=== PATIENT | male | born 1960 | race Caucasian/White ===

== ENCOUNTER 2022-01-08 04:11 | Inpatient (IN) | payer BC ==
[2022-01-08] MEDS ORDERED: NALOXONE 0.4 MG/ML 1 ML VIAL IVP STA (04:15)
[2022-01-08] MEDS ORDERED: IPRATROPIUM 0.5 MG/2.5 ML NEBU INHALATION STA (04:15)
[2022-01-08] MEDS ORDERED: ALBUTEROL NEBULIZED 2.5 MG/3 ML INHALATION STA (04:15)
[2022-01-08] MEDS ORDERED: SODIUM CHLORIDE 0.9% 1,000 ML IV STA (04:15)
[2022-01-08] MEDS ORDERED: methylPREDNISolone SOD SUCCI 125 MG/2 ML VIAL IV STA (04:15)
[2022-01-08] MEDS ORDERED: ENALAPRILAT 1.25 MG/ML 1 ML VIAL IVP STA ×2 (04:17→04:30)
--- NOTE | 2022-01-08 04:17 | ED ---
Altered Mental Status HPI - General Stated Complaint: JULIA Time Seen by Provider: 01/08/22 04:15 Source: RN notes reviewed, old records reviewed Limitations: no limitations - History of Present Illness Initial Comments: This is a 61-year-old male DF for evaluation. Patient presents today for evaluation regards to inability to breathe. Patient can provide history. Difficulty breathing MD Complaint: altered mental status -: days(s) Severity: severe Consistency of Symptoms: constant Associated Symptoms: denies other symptoms - Related Data Previous Rx's Medication Instructions Recorded Albuterol Inhaler [Ventolin Hfa 1 puff INHALATION RT-QID 30 Days 01/13/22 Inhaler] #8 gm Aspirin 81 mg PO DAILY #30 tab 01/13/22 Atorvastatin [Lipitor] 40 mg PO DAILY #30 tab 01/13/22 Cephalexin [Keflex] 500 mg PO TID 5 Days #15 cap 01/13/22 Furosemide [Lasix] 40 mg PO DAILY #30 tab 01/13/22 Metoprolol Tartrate [Lopressor] 25 mg PO BID #60 tab 01/13/22 Nitroglycerin Sl Tabs [Nitrostat] 0.4 mg SUBLINGUAL Q5M PRN #30 tab 01/13/22 Prasugrel [Effient] 10 mg PO DAILY 30 Days #30 tab 01/13/22 Spironolactone [Aldactone] 25 mg PO DAILY #30 tab 01/13/22 lisinopriL [Zestril] 5 mg PO BID #60 tab 01/13/22 Allergies Allergy/AdvReac Type Severity Reaction Status Date / Time Penicillins Allergy Anaphylaxis Verified 01/08/22 07:30 Review of Systems ROS Statement: Those systems with pertinent positive or pertinent negative responses have been documented in the HPI. ROS Other: All systems not noted in ROS Statement are negative. General Exam General appearance: alert, in no apparent distress Head exam: Present: atraumatic, normocephalic, normal inspection Eye exam: Present: normal appearance, PERRL, EOMI. Absent: scleral icterus, conjunctival injection, periorbital swelling ENT exam: Present: normal exam, mucous membranes moist Neck exam: Present: normal inspection. Absent: tenderness, meningismus, lymphadenopathy Respiratory exam: Present: normal lung sounds bilaterally. Absent: respiratory distress, wheezes, rales, rhonchi, stridor Cardiovascular Exam: Present: regular rate, normal rhythm, normal heart sounds. Absent: systolic murmur, diastolic murmur, rubs, gallop, clicks GI/Abdominal exam: Present: soft, normal bowel sounds. Absent: distended, tenderness, guarding, rebound, rigid Extremities exam: Present: normal inspection, full ROM, normal capillary refill. Absent: tenderness, pedal edema, joint swelling, calf tenderness Back exam: Present: normal inspection Neurological exam: Present: alert, oriented X3, CN II-XII intact Psychiatric exam: Present: normal affect, normal mood Skin exam: Present: warm, dry, intact, normal color. Absent: rash Course Vital Signs 01/08/22 01/08/22 01/08/22 04:18 04:43 04:47 Temperature Pulse Rate 122 H Pulse Rate [ [employer] ] Respiratory 40 H 20 Rate Blood Pressure Blood Pressure [Left Arm Supine] O2 Sat by Pulse 86 L Oximetry Fraction of 100 Inspired Oxygen (FIO2) 01/08/22 01/08/22 01/08/22 04:48 04:50 04:54 Temperature Pulse Rate 118 H Pulse Rate [ [employer] ] Respiratory 18 Rate Blood Pressure 158/113 165/108 Blood Pressure [Left Arm Supine] O2 Sat by Pulse Oximetry Fraction of 100 Inspired Oxygen (FIO2) 01/08/22 01/08/22 01/08/22 05:00 05:05 05:10 Temperature Pulse Rate Pulse Rate [ 118 H [employer] ] Respiratory 18 Rate Blood Pressure 158/113 158/113 Blood Pressure 116/81 108/81 114/76 [Left Arm Supine] O2 Sat by Pulse Oximetry Fraction of Inspired Oxygen (FIO2) 01/08/22 01/08/22 01/08/22 05:15 05:17 05:20 Temperature Pulse Rate 113 H 112 H Pulse Rate [ 118 H [employer] ] Respiratory 18 20 Rate Blood Pressure 158/113 Blood Pressure 97/66 [Left Arm Supine] O2 Sat by Pulse Oximetry Fraction of Inspired Oxygen (FIO2) 01/08/22 01/08/22 01/08/22 05:24 05:30 05:40 Temperature Pulse Rate 128 H 106 H 105 H Pulse Rate [ [employer] ] Respiratory 40 H 22 22 Rate Blood Pressure 223/184 84/56 80/53 Blood Pressure [Left Arm Supine] O2 Sat by Pulse 80 L 94 L 95 Oximetry Fraction of Inspired Oxygen (FIO2) 01/08/22 01/08/22 01/08/22 05:50 05:55 06:00 Temperature Pulse Rate 104 H 99 108 H Pulse Rate [ [employer] ] Respiratory 19 12 Rate Blood Pressure 84/56 108/82 Blood Pressure [Left Arm Supine] O2 Sat by Pulse 94 L 96 Oximetry Fraction of Inspired Oxygen (FIO2) 01/08/22 01/08/22 01/08/22 06:10 06:20 06:24 Temperature Pulse Rate 99 100 99 Pulse Rate [ [employer] ] Respiratory 23 25 H Rate Blood Pressure 86/59 120/83 Blood Pressure [Left Arm Supine] O2 Sat by Pulse 96 97 Oximetry Fraction of Inspired Oxygen (FIO2) 01/08/22 01/08/22 01/08/22 06:27 06:30 06:40 Temperature Pulse Rate 97 94 Pulse Rate [ [employer] ] Respiratory 24 21 Rate Blood Pressure 74/54 81/53 Blood Pressure [Left Arm Supine] O2 Sat by Pulse 98 99 Oximetry Fraction of 60 Inspired Oxygen (FIO2) 01/08/22 01/08/22 01/08/22 06:50 07:00 07:10 Temperature Pulse Rate 90 91 84 Pulse Rate [ [employer] ] Respiratory 23 22 26 H Rate Blood Pressure 83/57 113/78 82/53 Blood Pressure [Left Arm Supine] O2 Sat by Pulse 99 99 98 Oximetry Fraction of Inspired Oxygen (FIO2) 01/08/22 01/08/22 01/08/22 07:30 07:52 07:59 Temperature Pulse Rate 88 74 Pulse Rate [ [employer] ] Respiratory Rate Blood Pressure 75/50 Blood Pressure [Left Arm Supine] O2 Sat by Pulse Oximetry Fraction of 60 Inspired Oxygen (FIO2) 01/08/22 01/08/22 01/08/22 08:18 08:21 08:42 Temperature 98.5 F Pulse Rate 73 73 76 Pulse Rate [ [employer] ] Respiratory 18 18 Rate Blood Pressure 95/66 100/75 Blood Pressure [Left Arm Supine] O2 Sat by Pulse 97 99 Oximetry Fraction of Inspired Oxygen (FIO2) 01/08/22 01/08/22 01/08/22 10:55 11:33 11:38 Temperature Pulse Rate 69 67 Pulse Rate [ [employer] ] Respiratory 18 Rate Blood Pressure 93/62 Blood Pressure [Left Arm Supine] O2 Sat by Pulse 98 Oximetry Fraction of 60 Inspired Oxygen (FIO2) 01/08/22 01/08/22 12:31 13:28 Temperature Pulse Rate 78 86 Pulse Rate [ [employer] ] Respiratory 22 18 Rate Blood Pressure 103/76 121/83 Blood Pressure [Left Arm Supine] O2 Sat by Pulse 96 96 Oximetry Fraction of Inspired Oxygen (FIO2) - Reevaluation(s) Reevaluation #1: Medical record is reviewed Patient feels not improved here in the emergency department Medical Decision Making - Medical Decision Making 61 male with multifactorial respiratory failure and hypoxia in nature. Patient will be admitted to the ICU - Lab Data Result diagrams: 01/13/22 06:11 01/13/22 06:11 Lab Results 01/08/22 01/08/22 01/08/22 Range/Units 04:15 04:15 04:15 WBC 10.9 H (3.8-10.6) k/uL RBC 5.47 (4.30-5.90) m/uL Hgb 16.6 (13.0-17.5) gm/dL Hct 53.7 H (39.0-53.0) % MCV 98.2 (80.0-100.0) fL MCH 30.4 (25.0-35.0) pg MCHC 31.0 (31.0-37.0) g/dL RDW 13.6 (11.5-15.5) % Plt Count 267 (150-450) k/uL MPV 8.9 Neutrophils % 62 % Lymphocytes % 28 % Monocytes % 4 % Eosinophils % 2 % Basophils % 2 % Neutrophils # 6.7 (1.3-7.7) k/uL Lymphocytes # 3.0 (1.0-4.8) k/uL Monocytes # 0.5 (0-1.0) k/uL Eosinophils # 0.2 (0-0.7) k/uL Basophils # 0.2 (0-0.2) k/uL Hypochromasia Slight PT 12.3 H (9.0-12.0) sec INR 1.2 H (<1.2) APTT 24.0 (22.0-30.0) sec Sample Site ABG pH (7.35-7.45) ABG pCO2 (35-45) mmHg ABG pO2 (83-108) mmHg ABG HCO3 (21-25) mmol/L ABG Total CO2 (19-24) mmol/L ABG O2 Saturation (94-97) % ABG Base Excess mmol/L Irvin Test FiO2 % Sodium 140 (137-145) mmol/L Potassium 4.6 (3.5-5.1) mmol/L Chloride 103 (98-107) mmol/L Carbon Dioxide 20 L (22-30) mmol/L Anion Gap 17 mmol/L BUN 18 (9-20) mg/dL Creatinine 1.23 (0.66-1.25) mg/dL Est GFR (CKD-EPI)AfAm 74 (>60 ml/min/1.73 sqM) Est GFR (CKD-EPI)NonAf 64 (>60 ml/min/1.73 sqM) Glucose 325 H (74-99) mg/dL Lactic Ac Sepsis Rflx Plasma Lactic Acid Junaid (0.7-2.0) mmol/L Calcium 9.5 (8.4-10.2) mg/dL Magnesium 2.5 H (1.6-2.3) mg/dL Total Bilirubin 0.7 (0.2-1.3) mg/dL AST 41 (17-59) U/L ALT 26 (4-49) U/L Alkaline Phosphatase 84 (38-126) U/L Troponin I (0.000-0.034) ng/mL NT-Pro-B Natriuret Pep pg/mL Total Protein 7.6 (6.3-8.2) g/dL Albumin 4.5 (3.5-5.0) g/dL 01/08/22 01/08/22 01/08/22 Range/Units 04:15 04:15 04:15 WBC (3.8-10.6) k/uL RBC (4.30-5.90) m/uL Hgb (13.0-17.5) gm/dL Hct (39.0-53.0) % MCV (80.0-100.0) fL MCH (25.0-35.0) pg MCHC (31.0-37.0) g/dL RDW (11.5-15.5) % Plt Count (150-450) k/uL MPV Neutrophils % % Lymphocytes % % Monocytes % % Eosinophils % % Basophils % % Neutrophils # (1.3-7.7) k/uL Lymphocytes # (1.0-4.8) k/uL Monocytes # (0-1.0) k/uL Eosinophils # (0-0.7) k/uL Basophils # (0-0.2) k/uL Hypochromasia PT (9.0-12.0) sec INR (<1.2) APTT (22.0-30.0) sec Sample Site ABG pH (7.35-7.45) ABG pCO2 (35-45) mmHg ABG pO2 (83-108) mmHg ABG HCO3 (21-25) mmol/L ABG Total CO2 (19-24) mmol/L ABG O2 Saturation (94-97) % ABG Base Excess mmol/L Irvin Test FiO2 % Sodium (137-145) mmol/L Potassium (3.5-5.1) mmol/L Chloride (98-107) mmol/L Carbon Dioxide (22-30) mmol/L Anion Gap mmol/L BUN (9-20) mg/dL Creatinine (0.66-1.25) mg/dL Est GFR (CKD-EPI)AfAm (>60 ml/min/1.73 sqM) Est GFR (CKD-EPI)NonAf (>60 ml/min/1.73 sqM) Glucose (74-99) mg/dL Lactic Ac Sepsis Rflx Plasma Lactic Acid Junaid 5.4 H* (0.7-2.0) mmol/L Calcium (8.4-10.2) mg/dL Magnesium (1.6-2.3) mg/dL Total Bilirubin (0.2-1.3) mg/dL AST (17-59) U/L ALT (4-49) U/L Alkaline Phosphatase (38-126) U/L Troponin I 0.096 H* (0.000-0.034) ng/mL NT-Pro-B Natriuret Pep 4070 pg/mL Total Protein (6.3-8.2) g/dL Albumin (3.5-5.0) g/dL 01/08/22 01/08/22 Range/Units 05:38 05:54 WBC (3.8-10.6) k/uL RBC (4.30-5.90) m/uL Hgb (13.0-17.5) gm/dL Hct (39.0-53.0) % MCV (80.0-100.0) fL MCH (25.0-35.0) pg MCHC (31.0-37.0) g/dL RDW (11.5-15.5) % Plt Count (150-450) k/uL MPV Neutrophils % % Lymphocytes % % Monocytes % % Eosinophils % % Basophils % % Neutrophils # (1.3-7.7) k/uL Lymphocytes # (1.0-4.8) k/uL Monocytes # (0-1.0) k/uL Eosinophils # (0-0.7) k/uL Basophils # (0-0.2) k/uL Hypochromasia PT (9.0-12.0) sec INR (<1.2) APTT (22.0-30.0) sec Sample Site lbrach ABG pH 7.21 L (7.35-7.45) ABG pCO2 67 H (35-45) mmHg ABG pO2 363 H (83-108) mmHg ABG HCO3 27 H (21-25) mmol/L ABG Total CO2 29 H (19-24) mmol/L ABG O2 Saturation 100.0 H (94-97) % ABG Base Excess -1.3 mmol/L Irvin Test Yes FiO2 100 % Sodium (137-145) mmol/L Potassium (3.5-5.1) mmol/L Chloride (98-107) mmol/L Carbon Dioxide (22-30) mmol/L Anion Gap mmol/L BUN (9-20) mg/dL Creatinine (0.66-1.25) mg/dL Est GFR (CKD-EPI)AfAm (>60 ml/min/1.73 sqM) Est GFR (CKD-EPI)NonAf (>60 ml/min/1.73 sqM) Glucose (74-99) mg/dL Lactic Ac Sepsis Rflx Y Plasma Lactic Acid Junaid (0.7-2.0) mmol/L Calcium (8.4-10.2) mg/dL Magnesium (1.6-2.3) mg/dL Total Bilirubin (0.2-1.3) mg/dL AST (17-59) U/L ALT (4-49) U/L Alkaline Phosphatase (38-126) U/L Troponin I (0.000-0.034) ng/mL NT-Pro-B Natriuret Pep pg/mL Total Protein (6.3-8.2) g/dL Albumin (3.5-5.0) g/dL - Radiology Data Radiology results: report reviewed (Chest x-ray does show interstitial edema), image reviewed Disposition Clinical Impression: Acute exacerbation of chronic obstructive pulmonary disease, Acute pulmonary edema, Congestive heart failure, Hypoxia Disposition: ADMITTED IP TO THIS [facility] Condition: Stable Is patient prescribed a controlled substance at d/c from ED?: No
[2022-01-08] MEDS ORDERED: PROPOFOL 10 MG/ML 20 ML VIAL IV ONE (04:30)
--- NOTE | 2022-01-08 04:41 | XR ---
EXAMINATION TYPE: XR chest 1V portable DATE OF EXAM: 01/08/2022 COMPARISON: NONE HISTORY: Short of breath TECHNIQUE: Single view FINDINGS: There is coarsening of the interstitial markings. Heart is top normal in size. There are no hilar masses. Mediastinum is normal. Bony thorax is intact. IMPRESSION: There is pulmonary interstitial edema which could be acute pneumonia or acute heart failu re.
[2022-01-08] MEDS ORDERED: NITROGLYCERIN-D5W PMX 50 MG in DEXTROSE/WATER 1 250ML.BAG IV ONE (04:42)
[2022-01-08 04:54] LABS: Basophils # (A) 0.2 k/uL (0-0.2); Basophils % (A) 2 %; Eosinophils # (A) 0.2 k/uL (0-0.7); Eosinophils % (A) 2 %; HCT 53.7 % (39.0-53.0); HGB 16.6 gm/dL (13.0-17.5); Hypochromasia Slight; Lymphocytes % (A) 28 %; MCH 30.4 pg (25.0-35.0); MCV 98.2 fL (80.0-100.0); Mean Platelet Volume 8.9; Monocytes # (A) 0.5 k/uL (0-1.0); Monocytes % (A) 4 %; Neutrophils # (A) 6.7 k/uL (1.3-7.7); Neutrophils % (A) 62 %; Platelet Count 267 k/uL (150-450); RBC 5.47 m/uL (4.30-5.90); RDW 13.6 % (11.5-15.5); WBC 10.9 k/uL (3.8-10.6)
[2022-01-08 05:02] LABS: INR 1.2 (<1.2); Prothrombin Time 12.3 sec (9.0-12.0)
--- NOTE | 2022-01-08 05:12 | XR ---
EXAMINATION TYPE: XR chest 1V portable DATE OF EXAM: 01/08/2022 COMPARISON: 01/08/2022 HISTORY: Respiratory failure TECHNIQUE: Single view FINDINGS: The endotracheal tube is 3.8 cm from the arsenio. There is some pulmonary interstitial edema . Heart appears slightly enlarged. There is nasogastric tube in the stomach. No pleural effusion. IMPRESSION: Tubing in good position. Pulmonary edema which is the same or slightly worse than exam on e hour ago.
[2022-01-08 05:19] LABS: Albumin 4.5 g/dL (3.5-5.0); Calcium 9.5 mg/dL (8.4-10.2); Magnesium 2.5 mg/dL (1.6-2.3); Total Bilirubin 0.7 mg/dL (0.2-1.3); Total Protein 7.6 g/dL (6.3-8.2)
[2022-01-08 05:25] LABS: Potassium 4.6 mmol/L (3.5-5.1)
[2022-01-08] MEDS ORDERED: MIDAZOLAM 1 MG/ML 5 ML VIAL IV STA ×4 (05:26→08:00)
--- NOTE | 2022-01-08 05:28 | CT ---
EXAMINATION TYPE: CT brain sabineine wo con DATE OF EXAM: 01/08/2022 COMPARISON: None HISTORY: AMS CT DLP: 1784 mGycm Automated exposure control for dose reduction was used. Ventricles have normal size. There is no mass effect or midline shift. No sign of intracranial hemorr manny. The calvarium is intact. There is normal aeration of the mastoid sinuses. There is orogastric t ube and endotracheal tube. The cervical vertebra have normal alignment. There is mild disc space narrowing in the mid and lower cervical spine with spurring of the endplates. No compression fracture. There is mild hypertrophic ce rvical facet arthropathy. IMPRESSION: Spondylotic changes in the mid and lower cervical spine. No fracture. Negative CT scan of the brain. Ethmoid sinusitis.
[2022-01-08 05:40] LABS: ABG Base Excess -1.3 mmol/L; ABG HCO3 27 mmol/L (21-25); ABG PCO2 67 mmHg (35-45); ABG PH 7.21 (7.35-7.45); ABG PO2 363 mmHg (83-108); ABG TCO2 29 mmol/L (19-24); Allen Test Performed? Yes
[2022-01-08] MEDS ORDERED: IPRATROPIUM-ALBUTEROL 3 ML NEB INHALATION STA (05:43)
--- NOTE | 2022-01-08 05:45 | CT ---
EXAMINATION TYPE: CT angio thor/abd pel aorta DATE OF EXAM: 01/08/2022 COMPARISON: None HISTORY: SOB CT DLP: 1996.4 mGycm Automated exposure control for dose reduction was used. CONTRAST: Performed with IV Contrast, patient injected with 100 mL of Isovue 370. Images obtained from the thoracic inlet through the floor the pelvis with IV contrast. There are Thre e-D postprocessed images. There is bilateral lower lobe pulmonary airspace and interstitial infiltrates. There is small pleural effusions. Heart is top normal in size. No pericardial effusion. There are no hilar masses. No mediastinal adenopathy. There is some diffuse pulmonary interstitial ed cheli. Liver spleen and stomach pancreas gallbladder appear intact. The bile ducts are not dilated. There is no adrenal mass. Kidneys show satisfactory contrast opacification. There is no hydronephrosis. Urete rs are not dilated. No retroperitoneal adenopathy. Bladder distends smoothly. No inguinal hernia. No free fluid in the pelvis. No pelvic mass. There are a few sigmoid diverticula. No diverticulitis. No mesenteric edema. No ascites or free air. No sign of a bowel obstruction. The thoracic aorta is intact. No aneurysm or dissection. There is no evidence of filling defect in th e pulmonary arteries. There is arterial flow in the abdominal aorta and the celiac artery and superior mesenteric artery. T here is arterial flow in both renal arteries and the iliac and femoral arteries. No evidence of arter ial aneurysm or dissection. No evidence of hemodynamic stenosis. No mass effect. IMPRESSION: Negative CT angiogram of the chest abdomen pelvis. No evidence of pulmonary embolism. No evidence of arterial aneurysm or dissection. There is pulmonary edema with small pleural effusions and basilar pu lmonary infiltrates and atelectasis. This could be congestive heart failure.
[2022-01-08] MEDS ORDERED: MORPHINE SULFATE 4 MG/ML SYRINGE IV PRN (05:56)
[2022-01-08] MEDS ORDERED: NALOXONE 0.4 MG/ML 1 ML VIAL IV PRN (05:56)
[2022-01-08] MEDS ORDERED: SUCCINYLCHOLINE CHLORIDE 200 MG/10 ML VIAL IV STA (06:28)
[2022-01-08] MEDS ORDERED: ETOMIDATE 2 MG/ML 10 ML VIAL IVP STA (06:28)
[2022-01-08] MEDS ORDERED: SODIUM CHLORIDE 0.9% 500 ML 500 ML IV STA (06:47)
[2022-01-08] MEDS: IPRATROPIUM-ALBUTEROL 3 ML NEB INHALATION SCH ×4 (07:52→20:59)
[2022-01-08] MEDS ORDERED: ALBUTEROL NEBULIZED 2.5 MG/3 ML INHALATION SCH (08:00)
[2022-01-08] MEDS: methylPREDNISolone SOD SUCCI 125 MG/2 ML VIAL IV SCH ×3 (08:23→18:30)
[2022-01-08] MEDS: PANTOPRAZOLE 40 MG/10 ML VIAL IV SCH (08:25)
--- NOTE | 2022-01-08 08:53 | P.CRDCN ---
History of Present Illness Consult date: 01/08/22 History of present illness: History of Present Illness: The patient is a 61-year-old male who presented to the emergency room was progressive dyspnea, respiratory distress requiring mechanical ventilation. The history is obtained from his family. The patient has a known history of tobacco use. He has been followed in the past by Dr. Whatley, has no prior history of CHF but apparently has been complaining of progressive dyspnea over the last week or so much worse yesterday. He had no chest discomfort, no dizziness or palpitations or syncope according to the . He had no peripheral edema. There is no documented history of PND or orthopnea. He had an echocardiogram in January 2021 that showed an ejection fraction of 40-45% and had an MPI that showed anteroseptal ischemia with ejection fraction 34%. At that time recommendations were made regarding cardiac catheterization but the patient elected to continue medical therapy. He has a known history of hypertension and a history of smoking. He is nondiabetic. He is intubated and sedated in the emergency room during examination. Medications: When he was seen by Dr. Whatley he was on lisinopril hydroch lorothiazide 2012-/2 mg daily in addition to aspirin once a day Review of Systems: Obtained from the family Respiratory: He has a history of progressive dyspnea but no fever or wheezing GI: No nausea or vomiting . No history of peptic ulcer disease. No recent GI bleed. : No hematuria or dysuria. Nervous System: No stroke or seizure. Physical Examination: 7-year-old male, intubated and sedated ,Blood pressure 100/70, Heart rate 70 Head: Normocephalic. Eyes: Sclerae nonicteric. Neck: Good carotid upstroke, no bruit, no jugular venous distention. Lungs: Clear to auscultation. Heart: Regular rate and rhythm, S1-S2, no S3, no rub. Systolic ejection murmur. Abdomen: Soft , positive bowel sounds no organomegaly. Extremities: No edema, intact distal pulses. Labs: Blood cell 10.9, hemoglobin 16.6, pH 7.2, pCO2 67, pO2 363. Potassium 4.6, BUN 18, creatinine 1.23, glucose 325, troponin 0.096, NT proBNP 4070, chest x-ray consistent with pulmonary edema. CT angiogram showed no evidence of pulmonary embolism. Head CT showed no evidence of acute bleed EKG: EKG shows sinus mechanism with LVH and nonspecific ST-T wave changes Impression: 1. Acute respiratory failure with pulmonary edema, etiology unclear 2. Prior history of cardiomyopathy and abnormal MPI in January 2021 3. Chronic tobacco use 4. History of hypertension Plan: 1. IV diuresis 2. Obtain an echocardiogram with Doppler 3. Follow cardiac enzymes, the elevation appears to be related to the congestive heart failure, no clear evidence of acute ischemic event by EKG 4. Follow blood pressure and adjust treatment 5. Pulmonary consultation 6. Depending on his progress he may require coronary angiography depending on the testing 7. I discussed the findings with the family. Thank you for this consult we keturah l follow with you. Past Medical History Past Medical History: No Reported History Past Surgical History: No Surgical Hx Reported Past Psychological History: No Psychological Hx Reported Smoking Status: Current every day smoker Past Alcohol Use History: None Reported Past Drug Use History: None Reported Medications and Allergies Home Medications Medication Instructions Recorded Confirmed Type No Known Home Medications 01/08/22 01/08/22 History Allergies Allergy/AdvReac Type Severity Reaction Status Date / Time Penicillins Allergy Anaphylaxis Verified 01/08/22 07:30 Physical Exam Vitals: Vital Signs Temp Pulse Pulse Resp BP BP Pulse Ox 01/08/22 08:42 76 18 100/75 99 01/08/22 08:21 98.5 F 73 18 95/66 97 01/08/22 08:18 73 01/08/22 07:59 74 01/08/22 07:52 01/08/22 07:30 88 75/50 01/08/22 07:10 84 26 H 82/53 98 01/08/22 07:00 91 22 113/78 99 01/08/22 06:50 90 23 83/57 99 01/08/22 06:40 94 21 81/53 99 01/08/22 06:30 97 24 74/54 98 01/08/22 06:27 01/08/22 06:24 99 01/08/22 06:20 100 25 H 120/83 97 01/08/22 06:10 99 23 86/59 96 01/08/22 06:00 108 H 12 108/82 96 01/08/22 05:55 99 01/08/22 05:50 104 H 19 84/56 94 L 01/08/22 05:40 105 H 22 80/53 95 01/08/22 05:30 106 H 22 84/56 94 L 01/08/22 05:24 128 H 40 H 223/184 80 L 01/08/22 05:20 112 H 20 158/113 01/08/22 05:17 113 H 01/08/22 05:15 118 H 18 97/66 01/08/22 05:10 158/113 114/76 01/08/22 05:05 108/81 01/08/22 05:00 118 H 18 158/113 116/81 01/08/22 04:54 118 H 18 165/108 01/08/22 04:50 158/113 01/08/22 04:48 01/08/22 04:47 01/08/22 04:43 122 H 20 86 L 01/08/22 04:18 40 H FiO2 01/08/22 08:42 01/08/22 08:21 01/08/22 08:18 01/08/22 07:59 01/08/22 07:52 60 01/08/22 07:30 01/08/22 07:10 01/08/22 07:00 01/08/22 06:50 01/08/22 06:40 01/08/22 06:30 01/08/22 06:27 60 01/08/22 06:24 01/08/22 06:20 01/08/22 06:10 01/08/22 06:00 01/08/22 05:55 01/08/22 05:50 01/08/22 05:40 01/08/22 05:30 01/08/22 05:24 01/08/22 05:20 01/08/22 05:17 01/08/22 05:15 01/08/22 05:10 01/08/22 05:05 01/08/22 05:00 01/08/22 04:54 01/08/22 04:50 01/08/22 04:48 100 01/08/22 04:47 100 01/08/22 04:43 01/08/22 04:18 Intake and Output 01/07/22 01/08/22 01/08/22 22:59 06:59 14:59 Intake Total 13.483 3.891 Balance 13.483 3.891 Intake: Intake, IV Titration 13.483 3.891 Amount Nitroglycerin-D5w Pmx 50 1.05 mg In Dextrose/Water 1 250ml.bag @ 10 MCG/MIN 3 mls/hr IV .Q24H ONE Rx#: [id number] propofoL 1,000 mg In 12.433 3.891 Empty Bag 1 bag @ 5 MCG/ KG/MIN 2.847 mls/hr IV . Q24H [facility] Rx#:[id number] Other: Weight 94.9 kg Results 01/08/22 04:15 01/08/22 04:15 Cardiac Enzymes 01/08/22 01/08/22 Range/Units 04:15 04:15 AST 41 (17-59) U/L Troponin I 0.096 H* (0.000-0.034) ng/mL Coagulation 01/08/22 Range/Units 04:15 PT 12.3 H (9.0-12.0) sec APTT 24.0 (22.0-30.0) sec CBC 01/08/22 Range/Units 04:15 WBC 10.9 H (3.8-10.6) k/uL RBC 5.47 (4.30-5.90) m/uL Hgb 16.6 (13.0-17.5) gm/dL Hct 53.7 H (39.0-53.0) % Plt Count 267 (150-450) k/uL Comprehensive Metabolic Panel 01/08/22 Range/Units 04:15 Sodium 140 (137-145) mmol/L Potassium 4.6 (3.5-5.1) mmol/L Chloride 103 (98-107) mmol/L Carbon Dioxide 20 L (22-30) mmol/L BUN 18 (9-20) mg/dL Creatinine 1.23 (0.66-1.25) mg/dL Glucose 325 H (74-99) mg/dL Calcium 9.5 (8.4-10.2) mg/dL AST 41 (17-59) U/L ALT 26 (4-49) U/L Alkaline Phosphatase 84 (38-126) U/L Total Protein 7.6 (6.3-8.2) g/dL Albumin 4.5 (3.5-5.0) g/dL Current Medications Generic Name Dose Route Start Last Admin Trade Name Freq PRN Reason Stop Dose Admin Albuterol/Ipratropium 3 ml 01/08/22 08:00 01/08/22 07:52 Ipratropium-Albuterol 3 Ml Neb INHALATION 3 ml RT-QID TERE Administration Sodium Chloride 1,000 mls @ 130 mls/hr 01/08/22 04:15 01/08/22 08:43 Saline 0.9% IV 01/08/22 11:56 130 mls/hr .Q7H42M STA Administration Propofol 1,000 mg/ IV Solution 100 mls @ 2.847 mls/hr 01/08/22 04:30 01/08/22 08:42 IV 25 mcg/kg/min .Q24H TERE 14.235 mls/hr Titration Protocol 5 MCG/KG/MIN Nitroglycerin/Dextrose 50 mg/ 250 mls @ 3 mls/hr 01/08/22 04:42 01/08/22 05:05 IV Solution IV 01/09/22 04:41 0 mcg/min .Q24H ONE 0 mls/hr Titration Protocol 10 MCG/MIN Methylprednisolone Sodium Succinate 60 mg 01/08/22 06:00 01/08/22 08:23 Methylprednisolone Sod Succi 125 Mg/2 Ml Vial IV Not Given Q6HR TERE Morphine Sulfate 4 mg 01/08/22 05:56 Morphine Sulfate 4 Mg/Ml Syringe IV Q4HR PRN Pain Scale 8 to 10 Naloxone HCl 0.2 mg 01/08/22 05:56 Naloxone 0.4 Mg/Ml 1 Ml Vial IV Q2M PRN Opioid Reversal Pantoprazole Sodium 40 mg 01/08/22 09:00 01/08/22 08:25 Pantoprazole 40 Mg/10 Ml Vial IV Not Given DAILY TERE Intake and Output 01/07/22 01/08/22 01/08/22 22:59 06:59 14:59 Intake Total 13.483 3.891 Balance 13.483 3.891 Intake: Intake, IV Titration 13.483 3.891 Amount Nitroglycerin-D5w Pmx 50 1.05 mg In Dextrose/Water 1 250ml.bag @ 10 MCG/MIN 3 mls/hr IV .Q24H [facility] Rx#: [id number] propofoL 1,000 mg In 12.433 3.891 Empty Bag 1 bag @ 5 MCG/ KG/MIN 2.847 mls/hr IV . Q24H [facility] Rx#:[id number] Other: Weight 94.9 kg 01/08/22 04:15 01/08/22 04:15
[2022-01-08] MEDS ORDERED: HEPARIN SODIUM 1,000 UN/ML (10ML VL) IV ONE (08:54)
[2022-01-08] MEDS ORDERED: HEPARIN SODIUM 1,000 UN/ML (10ML VL) IV PRN (08:54)
[2022-01-08] MEDS: ATORVASTATIN 40 MG TAB PO SCH (10:17)
[2022-01-08] MEDS: ASPIRIN 81 MG PO SCH (10:17)
[2022-01-08] MEDS: FUROSEMIDE 10 MG/ML 4 ML VIAL IV SCH ×2 (10:25→16:17)
[2022-01-08] MEDS: HEPARIN SOD,PORK IN 0.45% NACL 25,000 UNIT in 0.45% NACL 1 250ML.BAG IV SCH (10:29)
--- NOTE | 2022-01-08 12:00 | CA ---
Transthoracic Echo Report Name: Manas Parikh Age: 61 Gender: M : 1960 Exam Date: 01/08/2022 10:15 Exam Location: [facility] Ht (in): 65 Wt (lb): 209 Ordering Physician: Dong Cortez MD ([id number]) Attending/Referring Phys: [employer] Graciela Roberts RDCS Procedure CPT: Indications: chf Cardiac Hx: Technical Quality: Technically difficult study Contrast 1: Lumason Total Dose (mL): 1 Contrast 2: Agitated Saline Total Dose (mL): 1 MEASUREMENTS (Male / Female) Normal Values 2D ECHO LV Diastolic Diameter PLAX 5.3 cm 4.2 - 5.9 / 3.9 - 5.3 cm LV Systolic Diameter PLAX 3.9 cm IVS Diastolic Thickness 1.3 cm 0.6 - 1.0 / 0.6 - 0.9 cm LVPW Diastolic Thickness 1.2 cm 0.6 - 1.0 / 0.6 - 0.9 cm LV Relative Wall Thickness 0.5 LVOT Diameter 1.7 cm M-MODE Aortic Root Diameter MM 3.8 cm LA Systolic Diameter MM 3.4 cm LA Ao Ratio MM 0.9 MV E Point Septal Separation 3.6 cm AV Cusp Separation MM 1.1 cm DOPPLER AV Peak Velocity 142.7 cm/s AV Peak Gradient 8.1 mmHg AV Mean Velocity 115.6 cm/s AV Mean Gradient 6.3 mmHg AV Velocity Time Integral 28.8 cm AI Peak Velocity 107.1 cm/s AI Peak Gradient 4.6 mmHg AI Pressure Half Time 613.5 ms LVOT Peak Velocity 57.8 cm/s LVOT Peak Gradient 1.3 mmHg AV Area Cont Eq pk 0.9 cm??? MV Area PHT 3.1 cm??? MR Peak Velocity 163.8 cm/s MR Peak Gradient 10.7 mmHg Mitral E Point Velocity 62.9 cm/s Mitral A Point Velocity 93.5 cm/s Mitral E to A Ratio 0.7 MV Deceleration Time 243.4 ms TR Peak Velocity 82.4 cm/s TR Peak Gradient 2.7 mmHg Right Ventricular Systolic Press 7.6 mmHg FINDINGS Left Ventricle Mildly increased septal wall thickness. Left ventricular ejection fraction is estimated at 30-35 %. Left ventricular cavity size normal. Right Ventricle The right ventricle is normal in size and function. Right Atrium The right atrium is normal in size. Left Atrium The left atrium is normal in size. Mitral Valve Structurally normal mitral valve without significant stenosis or prolapse. There is trace mitral regurgitation. Aortic Valve Cannot exclude possible Aortic stenosis, valve appears calcified with reduced opening but due to low EF gradient is not accurate.Trace aortic regurgitation. Tricuspid Valve Structurally normal tricuspid valve without significant stenosis. Pulmonary artery systolic pressure is normal. Trace tricuspid regurgitation. Pulmonic Valve Pulmonic valve not well visualized. Pericardium No pericardial effusion. Aorta Aorta is at the upper limits of normal measuring 3.8cm. CONCLUSIONS Technically suboptimal study secondary to poor echo windows. Contrast agent was used to enhance endocardial visualization. Moderate to severe LV systolic dysfunction with an ejection fraction of 35% aortic sclerosis with diminished valvular opening without significant gradients across the valve Previewed by: Dr. Clay Jeronimo MD (Electronically Signed) Final Date: 08 January 2022 11:59
--- NOTE | 2022-01-08 13:41 | P.CNPUL ---
History of Present Illness Consult date: 01/08/22 Reason for consult: dyspnea History of present illness: This is a 61-year-old male patient, known history of CHF with a previous LV ejection fraction being in the order of 40% on echocardiogram that was done in January 2021. The patient also had a cardiac stress test revealing anteroseptal ischemia with an ejection fraction of 34%. Nevertheless, back then, he did not want to do any further treatment. He did not pursue any treatment. It is not pursue a cardiac catheterization. Over the past 1 week, the patient has been having worsening shortness of breath. This has been noted by the family. No chest pain. No angina. No palpitations. No sweating. No arm or neck pain. Early this morning, the patient became very short of breath and he arrived to the emergency department in significant respiratory distress. The patient was unresponsive at time of arrival. He was immediately intubated and placed on mechanical ventilator. His chest x-ray was consistent with pulmonary edema. The initial chest x-ray was consistent with pulmonary edema. EKG showed atrial flutter with rapid ventricular response and the patient had voltage criteria of LVH. . The proBNP level was 4017. Troponin initially was at 0.09 and subsequently came back at 1.5. The His systolic blood pressure was as high as 150-113 and later on it was also noted to be at 223/184. The patient was immediately intubated and placed on a mechanical ventilator and the patient was also started on diuretics. Post intubation blood gases showed a patient of 7.21 with a pCO2 of 67 pO2 of 63 and this was identified to percent and currently the patient is an assist-control mode at the rate of 16 with tidal volume of 500 and FiO2 of 60% with a PEEP of 5. At this point in time, the patient is sedated with propofol which is currently running at 25 mcg/kg per [facility]. Cardiac rhythm is sinus. The patient was started on Lasix 40 mg IV every 8 hours and the patient is producing excellent urine output. The patient is also on IV heparin. Cardiology is on the case. Echocardiogram is in progress. Patient was also started on Estrace 1 mg by mouth daily and statins in the form of Lipitor 40 mg by mouth daily. He is a chronic smoker. Review of Systems ROS unobtainable: due to endotracheal tube, due to mental status Past Medical History Past Medical History: No Reported History, Coronary Artery Disease (CAD), Heart Failure Past Surgical History: No Surgical Hx Reported Past Psychological History: No Psychological Hx Reported Smoking Status: Current every day smoker Past Alcohol Use History: None Reported Past Drug Use History: None Reported Medications and Allergies Home Medications Medication Instructions Recorded Confirmed Type No Known Home Medications 01/08/22 01/08/22 History Allergies Allergy/AdvReac Type Severity Reaction Status Date / Time Penicillins Allergy Anaphylaxis Verified 01/08/22 07:30 Physical Exam Vitals: Vital Signs Temp Pulse Pulse Resp BP BP Pulse Ox 01/08/22 08:42 76 18 100/75 99 01/08/22 08:21 98.5 F 73 18 95/66 97 01/08/22 08:18 73 01/08/22 07:59 74 01/08/22 07:52 01/08/22 07:30 88 75/50 01/08/22 07:10 84 26 H 82/53 98 01/08/22 07:00 91 22 113/78 99 01/08/22 06:50 90 23 83/57 99 01/08/22 06:40 94 21 81/53 99 01/08/22 06:30 97 24 74/54 98 01/08/22 06:27 01/08/22 06:24 99 01/08/22 06:20 100 25 H 120/83 97 01/08/22 06:10 99 23 86/59 96 01/08/22 06:00 108 H 12 108/82 96 01/08/22 05:55 99 01/08/22 05:50 104 H 19 84/56 94 L 01/08/22 05:40 105 H 22 80/53 95 01/08/22 05:30 106 H 22 84/56 94 L 01/08/22 05:24 128 H 40 H 223/184 80 L 01/08/22 05:20 112 H 20 158/113 01/08/22 05:17 113 H 01/08/22 05:15 118 H 18 97/66 01/08/22 05:10 158/113 114/76 01/08/22 05:05 108/81 01/08/22 05:00 118 H 18 158/113 116/81 01/08/22 04:54 118 H 18 165/108 01/08/22 04:50 158/113 01/08/22 04:48 08/10/22 04:47 01/08/22 04:43 122 H 20 86 L 01/08/22 04:18 40 H FiO2 01/08/22 08:42 01/08/22 08:21 01/08/22 08:18 01/08/22 07:59 01/08/22 07:52 60 01/08/22 07:30 01/08/22 07:10 01/08/22 07:00 01/08/22 06:50 01/08/22 06:40 01/08/22 06:30 01/08/22 06:27 60 01/08/22 06:24 01/08/22 06:20 01/08/22 06:10 01/08/22 06:00 01/08/22 05:55 01/08/22 05:50 01/08/22 05:40 01/08/22 05:30 01/08/22 05:24 01/08/22 05:20 01/08/22 05:17 01/08/22 05:15 01/08/22 05:10 01/08/22 05:05 01/08/22 05:00 01/08/22 04:54 01/08/22 04:50 01/08/22 04:48 100 01/08/22 04:47 100 01/08/22 04:43 01/08/22 04:18 Intake and Output 01/07/22 01/08/22 01/08/22 22:59 06:59 14:59 Intake Total 13.483 3.891 Balance 13.483 3.891 Intake: Intake, IV Titration 13.483 3.891 Amount Nitroglycerin-D5w Pmx 50 1.05 mg In Dextrose/Water 1 250ml.bag @ 10 MCG/MIN 3 mls/hr IV .Q24H [facility] Rx#: [id number] propofoL 1,000 mg In 12.433 3.891 Empty Bag 1 bag @ 5 MCG/ KG/MIN 2.847 mls/hr IV . Q24H [facility] Rx#:[id number] Other: Weight 94.9 kg Intubated on mechanical ventilator, sedated, comfortable Head exam was generally normal. There was no scleral icterus or corneal arcus. Mucous membranes were moist. Neck was supple and without jugular venous distension, thyromegaly, or carotid bruits. Carotids were easily palpable bilaterally. There was no adenopathy. Positive JVDs are noted and the patient has a orogastric and orotracheal tube are both being in good location. Lungs sounds are clear admission lung bases along with some crackles in lung b ases bilaterally. Cardiac exam revealed the PMI to be normally situated and sized. The rhythm was regular and no extrasystoles were noted during several minutes of auscultation. The first and second heart sounds were normal and physiologic splitting of the second heart sound was noted. There were no murmurs, rubs, clicks, or gallops. Abdominal exam revealed normal bowel sounds. The abdomen was soft, non-tender, and without masses, organomegaly, or appreciable enlargement of the abdominal aorta. Examination of the extremities revealed easily palpable radial, femoral and pedal pulses. There was no cyanosis, clubbing or edema. Examination of the skin revealed no evidence of significant rashes, suspicious appearing nevi or other concerning lesions. Neurologically, the patient is awake and alert and the patient does not have any focal neurological deficit. Cranial nerves are essentially intact. Results - Laboratory Findings CBC and BMP: 01/08/22 04:15 01/08/22 04:15 ABG ABG pH 7.21 (7.35-7.45) L 01/08/22 05:38 ABG pCO2 67 mmHg (35-45) H 01/08/22 05:38 ABG pO2 363 mmHg (83-108) H 01/08/22 05:38 ABG O2 Saturation 100.0 % (94-97) H 01/08/22 05:38 PT/INR, D-dimer PT 12.3 sec (9.0-12.0) H 01/08/22 04:15 INR 1.2 (<1.2) H 01/08/22 04:15 Abnormal lab findings: Abnormal Labs 01/08/22 01/08/22 01/08/22 04:15 04:15 04:15 WBC 10.9 H Hct 53.7 H PT 12.3 H INR 1.2 H ABG pH ABG pCO2 ABG pO2 ABG HCO3 ABG Total CO2 ABG O2 Saturation Carbon Dioxide 20 L Glucose 325 H Plasma Lactic Acid Junaid Magnesium 2.5 H Troponin I 01/08/22 01/08/2201/08/22 04:15 04:15 05:38 WBC Hct PT INR ABG pH 7.21 L ABG pCO2 67 H ABG pO2 363 H ABG HCO3 27 H ABG Total CO2 29 H ABG O2 Saturation 100.0 H Carbon Dioxide Glucose Plasma Lactic Acid Junaid 5.4 H* Magnesium Troponin I 0.096 H* - Diagnostic Findings Chest x-ray: image reviewed Assessment and Plan Plan: Acute hypoxic respiratory failure secondary to pulmonary edema, currently intubated on mechanical ventilator Acute decompensated CHF, consistent with systolic heart failure as the patient is known to have some mild impairment of the LV function with an ejection fraction of 40-45% based on her present cardiac up from January 2021 Acute non-ST segment elevation myocardial infarction Acute atrial flutter with RVR, improved and the patient's cardiac rhythm is sinus Hypertension with elevated blood pressure, improved Chronic smoker Plan Transfer this patient to the intensive care unit Keep the patient sedated with propofol Review the blood gases in the intensive care unit Continue Lasix 40 mg every 8 hours Monitor troponins and continue the patient IV heparin Echocardiogram has been ordered Agree on aspirin Agree on metoprolol 25 mg twice a day Agree on Lipitor 40 mg by mouth daily Continue bronchodilators Continue steroids We will consult cardiology We'll continue to follow make further adjustments based on patient's clinical response. May need ultimately a cardiac catheterization. Condition is critical at this point in time. Family has been updated.
[2022-01-08 14:00] LABS: Glucose,Whole Blood 145 mg/dL (70-110)
[2022-01-08] MEDS ORDERED: ONDANSETRON 4 MG/2 ML VIAL IVP PRN (20:55)
[2022-01-08] MEDS: METOPROLOL TARTRATE 25 MG TAB PO SCH (21:01)
[2022-01-08] MEDS: CHLORHEXIDINE GLUCONATE 15 ML CUP MUCOUS MEM SCH (21:01)
[2022-01-08] MEDS ORDERED: DEXTROSE 50% SYRINGE 50 ML IVP PRN ×2 (23:10)
[2022-01-08] MEDS ORDERED: INSULIN ASPART (NovoLOG) 100 UNIT/ML VIAL SQ SCH (23:15)
[2022-01-08 23:22] LABS: Basophils % (A) 0 %; Eosinophils % (A) 0 %; HCT 47.4 % (39.0-53.0); HGB 15.1 gm/dL (13.0-17.5); Lymphocytes # (A) 0.7 k/uL (1.0-4.8); Lymphocytes % (A) 5 %; MCH 30.6 pg (25.0-35.0); MCHC 31.9 g/dL (31.0-37.0); MCV 95.9 fL (80.0-100.0); Mean Platelet Volume 8.6; Monocytes # (A) 0.3 k/uL (0-1.0); Monocytes % (A) 2 %; Neutrophils # (A) 11.2 k/uL (1.3-7.7); Neutrophils % (A) 92 %; Platelet Count 198 k/uL (150-450); RBC 4.94 m/uL (4.30-5.90); RDW 13.7 % (11.5-15.5); WBC 12.2 k/uL (3.8-10.6)
--- NOTE | 2022-01-08 23:31 | P.HPIM ---
History of Present Illness H&P Date: 01/08/22 Chief Complaint: Difficulty in breathing Patient is a 61-year-old male with a known history of coronary artery disease and abdominal myocardial perfusion imaging in January 2021, patient opted for medical management and echocardiogram showed ejection fraction 40% presents to ER with complaints of sudden onset of severe shortness of breath last night. Patient has been having worsening breathing status for the past 1 week. Patient was unresponsive at the time of arrival. He was immediately intubated and placed on mechanical ventilator. Chest x-ray showed diffuse pulmonary interstitial edema which could be acute pneumonia or acute heart failure. CT head and cervical spine showed spondylitic changes in the mid and lower cervical spine. No fracture. Negative CT scan of the brain. Ethmoid sinusitis. CT of the thoracic aorta is negative. There is pulmonary edema with small pleural effusions and bilateral pulmonary infiltrates and atelectasis. This could be congestive heart failure. EKG showed atrial flutter/tachycardia with rapid ventricle response. On admission patient was tachycardic. Blood pressure was 158/113 mmHg Laboratory test showed WBC 10.9 hemoglobin level of 16.6 platelets 267 INR 1.2 ABG showed pH 7.21 PCO2 67 PO2 363 Sodium 140 potassium 4.6 chloride 103 bicarb is 20 BUN 18 and creatinine 1.23 and blood sugar is 325 Lactic acid 5.4 magnesium 2.5, [place] 4070 Troponin 0.096, 01.560, 4.82 Review of Systems Complete review of systems could not be obtained from the patient. Past Medical History Past Medical History: No Reported History, Coronary Artery Disease (CAD), Heart Failure Past Surgical History: No Surgical Hx Reported Past Psychological History: No Psychological Hx Reported Smoking Status: Current every day smoker Past Alcohol Use History: None Reported Past Drug Use History: None Reported Medications and Allergies Home Medications Medication Instructions Recorded Confirmed Type No Known Home Medications 01/08/22 01/08/22 History Allergies Allergy/AdvReac Type Severity Reaction Status Date / Time Penicillins Allergy Anaphylaxis Verified 01/08/22 07:30 Physical Exam Vitals: Vital Signs Temp Pulse Pulse Resp BP BP Pulse Ox 01/08/22 08:42 76 18 100/75 99 01/08/22 08:21 98.5 F 73 18 95/66 97 01/08/22 08:18 73 01/08/22 07:59 74 01/08/22 07:52 01/08/22 07:30 88 75/50 01/08/22 07:10 84 26 H 82/53 98 01/08/22 07:00 91 22 113/78 99 01/08/22 06:50 90 23 83/57 99 01/08/22 06:40 94 21 81/53 99 01/08/22 06:30 97 24 74/54 98 01/08/22 06:27 01/08/22 06:24 99 01/08/22 06:20 100 25 H 120/83 97 01/08/22 06:10 99 23 86/59 96 01/08/22 06:00 108 H 12 108/82 96 01/08/22 05:55 99 01/08/22 05:50 104 H 19 84/56 94 L 01/08/22 05:40 105 H 22 80/53 95 01/08/22 05:30 106 H 22 84/56 94 L 01/08/22 05:24 128 H 40 H 223/184 80 L 01/08/22 05:20 112 H 20 158/113 01/08/22 05:17 113 H 01/08/22 05:15 118 H 18 97/66 01/08/22 05:10 158/113 114/76 01/08/22 05:05 108/81 01/08/22 05:00 118 H 18 158/113 116/81 01/08/22 04:54 118 H 18 165/108 01/08/22 04:50 158/113 01/08/22 04:48 01/08/22 04:47 01/08/22 04:43 122 H 20 86 L 01/08/22 04:18 40 H FiO2 01/08/22 08:42 01/08/22 08:21 01/08/22 08:18 01/08/22 07:59 01/08/22 07:52 60 01/08/22 07:30 01/08/22 07:10 01/08/22 07:00 01/08/22 06:50 01/08/22 06:40 01/08/22 06:30 01/08/22 06:27 60 01/08/22 06:24 01/08/22 06:20 01/08/22 06:10 01/08/22 06:00 01/08/22 05:55 01/08/22 05:50 01/08/22 05:40 01/08/22 05:30 01/08/22 05:24 01/08/22 05:20 01/08/22 05:17 01/08/22 05:15 01/08/22 05:10 01/08/22 05:05 01/08/22 05:00 01/08/22 04:54 01/08/22 04:50 01/08/22 04:48 100 01/08/22 04:47 100 01/08/22 04:43 01/08/22 04:18 Intake and Output 01/07/22 01/08/22 01/08/22 22:59 06:59 14:59 Intake Total 13.483 3.891 Balance 13.483 3.891 Intake: Intake, IV Titration 13.483 3.891 Amount Nitroglycerin-D5w Pmx 50 1.05 mg In Dextrose/Water 1 250ml.bag @ 10 MCG/MIN 3 mls/hr IV .Q24H [facility] Rx#: [id number] propofoL 1,000 mg In 12.433 3.891 Empty Bag 1 bag @ 5 MCG/ KG/MIN 2.847 mls/hr IV . Q24H [facility] Rx#:[id number] Other: Weight 94.9 kg PHYSICAL EXAMINATION: Patient is on mechanical ventilator.. Sedated. HEENT: Normocephalic. Neck is supple. Pupils reactive. Nostrils clear. Oral cavity is moist. Neck reveals no JVD, carotid bruits, or thyromegaly. CHEST EXAMINATION: Trachea is central. Symmetrical expansion. Lung burden clear to auscultation and percussion. Bibasilar diminished sounds. No wheezing. CARDIAC: Normal S1, S2 with no gallops. No murmurs ABDOMEN: Soft. Bowel sounds present. Nontender. No organomegaly. No abdominal bruits. Extremities: reveal trace pedal edema. No clubbing or cyanosis Neurologically patient is sedated and on the current ventilator. No gross focal deficits noted Skin: No rash or skin lesions. Psychiatric: Could not be assessed at this time.. Musculoskeletal: No joint swelling or deformity. Results CBC & Chem 7: 01/08/22 22:55 01/08/22 04:15 Labs: Abnormal Lab Results - Last 24 Hours (Table) 01/08/22 01/08/22 01/08/22 Range/Units 04:15 04:15 04:15 WBC 10.9 H (3.8-10.6) k/uL Hct 53.7 H (39.0-53.0) % PT 12.3 H (9.0-12.0) sec INR 1.2 H (<1.2) ABG pH (7.35-7.45) ABG pCO2 (35-45) mmHg ABG pO2 (83-108) mmHg ABG HCO3 (21-25) mmol/L ABG Total CO2 (19-24) mmol/L ABG O2 Saturation (94-97) % Carbon Dioxide 20 L (22-30) mmol/L Glucose 325 H (74-99) mg/dL Plasma Lactic Acid Junaid (0.7-2.0) mmol/L Magnesium 2.5 H (1.6-2.3) mg/dL Troponin I (0.000-0.034) ng/mL 01/08/22 01/08/22 01/08/22 Range/Units 04:15 04:15 05:38 WBC (3.8-10.6) k/uL Hct (39.0-53.0) % PT (9.0-12.0) sec INR (<1.2) ABG pH 7.21 L (7.35-7.45) ABG pCO2 67 H (35-45) mmHg ABG pO2 363 H (83-108) mmHg ABG HCO3 27 H (21-25) mmol/L ABG Total CO2 29 H (19-24) mmol/L ABG O2 Saturation 100.0 H (94-97) % Carbon Dioxide (22-30) mmol/L Glucose (74-99) mg/dL Plasma Lactic Acid Junaid 5.4 H* (0.7-2.0) mmol/L Magnesium (1.6-2.3) mg/dL Troponin I 0.096 H* (0.000-0.034) ng/mL 01/08/22 Range/Units 08:05 WBC (3.8-10.6) k/uL Hct (39.0-53.0) % PT (9.0-12.0) sec INR (<1.2) ABG pH (7.35-7.45) ABG pCO2 (35-45) mmHg ABG pO2 (83-108) mmHg ABG HCO3 (21-25) mmol/L ABG Total CO2 (19-24) mmol/L ABG O2 Saturation (94-97) % Carbon Dioxide (22-30) mmol/L Glucose (74-99) mg/dL Plasma Lactic Acid Junaid (0.7-2.0) mmol/L Magnesium (1.6-2.3) mg/dL Troponin I 1.560 H* (0.000-0.034) ng/mL Thrombosis Risk Factor Assmnt - DVT/VTE Prophylaxis DVT/VTE Prophylaxis: Pharmacologic Prophylaxis ordered Assessment and Plan Assessment: Acute hypoxic respiratory failure secondary to CHF exacerbation. Currently on mechanical ventilator. Acute on chronic CHF with systolic dysfunction ejection fraction 40% Acute non-ST elevated NM History of abnormal MPI in January 2021. Patient opted for medical management at that time. New onset atrial flutter with rapid ventricular rate. Correlate for sinus node. Hyperglycemia. Possible new onset diabetes. Follow-up A1c level Uncontrolled hypertension History of smoking Medication noncompliance GI and DVT prophylaxis. Plan: Patient is sedated and on mechanical ventilator. Patient will be continued on telemetry monitoring. Continue with Lasix 40 mg every 8 hourly. Patient is also on heparin drip. Continue with aspirin, statins and metoprolol. Continue with duo nebs and follow-up closely. Pulmonary and cardiology is on board. Patient is being transferred to MICU. Time with Patient: Greater than 30
[2022-01-09 00:02] LABS: Glucose,Whole Blood 160 mg/dL (70-110)
[2022-01-09] MEDS: FUROSEMIDE 10 MG/ML 4 ML VIAL IV SCH ×3 (00:11→16:48)
[2022-01-09] MEDS: INSULIN ASPART (NovoLOG) 100 UNIT/ML VIAL SQ SCH ×5 (00:12→20:27)
[2022-01-09] MEDS: methylPREDNISolone SOD SUCCI 125 MG/2 ML VIAL IV SCH ×4 (00:13→18:10)
[2022-01-09 05:52] LABS: ABG Base Excess 8.1 mmol/L; ABG HCO3 33 mmol/L (21-25); ABG PCO2 51 mmHg (35-45); ABG PH 7.42 (7.35-7.45); ABG PO2 80 mmHg (83-108); ABG TCO2 34 mmol/L (19-24); Allen Test Performed? Yes
[2022-01-09 06:14] LABS: Glucose,Whole Blood 143 mg/dL (70-110)
[2022-01-09 07:12] LABS: Basophils % (A) 0 %; Eosinophils % (A) 0 %; HCT 45.1 % (39.0-53.0); HGB 14.8 gm/dL (13.0-17.5); Lymphocytes # (A) 0.7 k/uL (1.0-4.8); Lymphocytes % (A) 6 %; MCH 31.2 pg (25.0-35.0); MCHC 32.8 g/dL (31.0-37.0); MCV 95.3 fL (80.0-100.0); Mean Platelet Volume 8.4; Monocytes # (A) 0.4 k/uL (0-1.0); Monocytes % (A) 3 %; Neutrophils # (A) 10.5 k/uL (1.3-7.7); Neutrophils % (A) 90 %; Platelet Count 213 k/uL (150-450); RBC 4.74 m/uL (4.30-5.90); RDW 13.8 % (11.5-15.5); WBC 11.7 k/uL (3.8-10.6)
[2022-01-09] MEDS: HEPARIN SOD,PORK IN 0.45% NACL 25,000 UNIT in 0.45% NACL 1 250ML.BAG IV SCH (07:14)
[2022-01-09 07:25] LABS: INR 1.1 (<1.2); Partial Thromboplastin Time 49.9 sec (22.0-30.0); Prothrombin Time 12.2 sec (9.0-12.0)
--- NOTE | 2022-01-09 07:29 | XR ---
EXAMINATION TYPE: XR chest 1V portable DATE OF EXAM: 01/09/2022 Comparison: 01/08/2022 Clinical History: 61-year-old male CHF Findings: ET tube tip slightly pulled back now at the level of the medial clavicular heads. NG tube courses bel ow the diaphragm. Heart mildly enlarged. Interstitial changes show slight improvement from prior. No consolidation or pleural effusion. Impression: Mild cardiomegaly and improving interstitial pulmonary edema. Mild pulmonary vascular congestion ar ins.
[2022-01-09 07:40] LABS: Albumin 3.4 g/dL (3.5-5.0); Calcium 8.6 mg/dL (8.4-10.2); Magnesium 2.1 mg/dL (1.6-2.3); Phosphorus 3.6 mg/dL (2.5-4.5); Potassium 3.7 mmol/L (3.5-5.1); Total Bilirubin 0.3 mg/dL (0.2-1.3)
--- NOTE | 2022-01-09 08:01 | P.PN ---
Subjective Progress Note Date: 01/09/22 PROGRESS NOTE The patient is a 61-year-old male who presented with acute respiratory distress, requiring mechanical ventilation. He remains intubated but following commands. He is in sinus mechanism. He is on the low dose of norepinephrine. His urine output is good. He has no evidence of malignant arrhythmia. His echocardiogram showed an ejection fraction of 30-35% with no mention of segmental wall motion. No significant valvular disease was noted. He has a prior history of cardiomyopathy with abnormal stress test a year ago. He has been seen by Dr. Whatley in the past and cardiac catheterization was recommended. His troponin peak was 4.8 Medications: Aspirin once a day, Lipitor 40 mg daily, IV heparin, metoprolol tartrate 25 mg twice a day, Lasix 40 mg IV every 8 hours PHYSICAL EXAMINATION: Blood pressure 111/70 heart rate 90, intubated but following commands . LUNGS: Clear to auscultation HEART: Regular rate and rhythm, S1, S2. No S3. systolic systolic ejection murmur ABDOMEN: Soft, nontender, no organomegaly EXTREMETIES: 1+ edema LAB: Troponin 4.8 IMPRESSION: 1. Respiratory failure with pulmonary edema 2. Non-STEMI 3. Severe cardiomyopathy, unclear etiology 4. History of chronic tobacco use 5. History of hypertension PLAN: 1. Continue present therapy 2. And ventilator management per pulmonary 3. The patient would require cardiac catheterization once stabilized to evaluate the etiology of his cardiomyopathy 4. Follow her renal functions 5. Follow blood pressure and adjust regimen to add DANICA inhibitor 6. I discussed the findings with the family Objective - Vital Signs Vital signs: Vital Signs Temp 99.0 F 01/09/22 04:00 Pulse 92 01/09/22 07:00 Resp 19 01/09/22 07:00 BP 111/75 01/09/22 07:00 Pulse Ox 95 01/09/22 07:00 FiO2 40 01/09/22 07:24 Intake & Output 01/08/22 01/09/22 01/09/22 18:59 06:59 18:59 Intake Total 396.067 657.794 207.28 Output Total 670 1360 120 Balance -273.933 -702.206 87.28 Weight 93.8 kg Intake: IV 120 360 30 NS 120 360 30 Intake, IV Titration 276.067 297.794 177.28 Amount Heparin Sod,Pork in 0.45% 58.5 177.28 NaCl 25,000 unit In 0.45 % NaCl 1 250ml.bag @ 10. 537 UNITS/KG/HR 10 mls/hr IV .[facility] Rx#: [id number] Sodium Chloride 0.9% 1, 130 000 ml @ 130 mls/hr IV . Q7H42M [facility] Rx#:[id number] propofoL 1,000 mg In 87.567 297.794 Empty Bag 1 bag @ 5 MCG/ KG/MIN 2.847 mls/hr IV . [facility] Rx#:[id number] Output: Gastric Drainage 300 20 Urine 670 1060 100 Other: Voiding Method Indwelling Catheter Indwelling Catheter - Labs CBC & Chem 7: 01/09/22 06:32 01/09/22 06:32 Labs: Abnormal Lab Results - Last 24 Hours (Table) 01/08/22 01/08/22 01/08/22 Range/Units 08:05 11:32 13:59 WBC (3.8-10.6) k/uL Neutrophils # (1.3-7.7) k/uL Lymphocytes # (1.0-4.8) k/uL PT (9.0-12.0) sec APTT (22.0-30.0) sec ABG pCO2 (35-45) mmHg ABG pO2 (83-108) mmHg ABG HCO3 (21-25) mmol/L ABG Total CO2 (19-24) mmol/L Carbon Dioxide (22-30) mmol/L BUN (9-20) mg/dL Creatinine (0.66-1.25) mg/dL Glucose (74-99) mg/dL POC Glucose (mg/dL) 145 H (70-110) mg/dL AST (17-59) U/L Troponin I 1.560 H* 4.820 H* (0.000-0.034) ng/mL Total Protein (6.3-8.2) g/dL Albumin (3.5-5.0) g/dL 01/08/22 01/08/22 01/08/22 Range/Units 14:41 22:55 22:55 WBC 12.2 H (3.8-10.6) k/uL Neutrophils # 11.2 H (1.3-7.7) k/uL Lymphocytes # 0.7 L (1.0-4.8) k/uL PT (9.0-12.0) sec APTT 42.7 H 48.0 H (22.0-30.0) sec ABG pCO2 (35-45) mmHg ABG pO2 (83-108) mmHg ABG HCO3 (21-25) mmol/L ABG Total CO2 (19-24) mmol/L Carbon Dioxide (22-30) mmol/L BUN (9-20) mg/dL Creatinine (0.66-1.25) mg/dL Glucose (74-99) mg/dL POC Glucose (mg/dL) (70-110) mg/dL AST (17-59) U/L Troponin I (0.000-0.034) ng/mL Total Protein (6.3-8.2) g/dL Albumin (3.5-5.0) g/dL 01/09/22 01/09/22 01/09/22 Range/Units 00:00 05:50 06:13 WBC (3.8-10.6) k/uL Neutrophils # (1.3-7.7) k/uL Lymphocytes # (1.0-4.8) k/uL PT (9.0-12.0) sec APTT (22.0-30.0) sec ABG pCO2 51 H (35-45) mmHg ABG pO2 80 L (83-108) mmHg ABG HCO3 33 H (21-25) mmol/L ABG Total CO2 34 H (19-24) mmol/L Carbon Dioxide (22-30) mmol/L BUN (9-20) mg/dL Creatinine (0.66-1.25) mg/dL Glucose (74-99) mg/dL POC Glucose (mg/dL) 160 H 143 H (70-110) mg/dL AST (17-59) U/L Troponin I (0.000-0.034) ng/mL Total Protein (6.3-8.2) g/dL Albumin (3.5-5.0) g/dL 01/09/22 01/09/22 01/09/22 Range/Units 06:32 06:32 06:32 WBC 11.7 H (3.8-10.6) k/uL Neutrophils # 10.5 H (1.3-7.7) k/uL Lymphocytes # 0.7 L (1.0-4.8) k/uL PT 12.2 H (9.0-12.0) sec APTT 49.9 H (22.0-30.0) sec ABG pCO2 (35-45) mmHg ABG pO2 (83-108) mmHg ABG HCO3 (21-25) mmol/L ABG Total CO2 (19-24) mmol/L Carbon Dioxide 31 H (22-30) mmol/L BUN 29 H (9-20) mg/dL Creatinine 1.27 H (0.66-1.25) mg/dL Glucose 155 H (74-99) mg/dL POC Glucose (mg/dL) (70-110) mg/dL AST 61 H (17-59) U/L Troponin I (0.000-0.034) ng/mL Total Protein 6.0 L (6.3-8.2) g/dL Albumin 3.4 L (3.5-5.0) g/dL Microbiology - Last 24 Hours (Table) 01/08/22 04:48 Sputum Culture - Preliminary Sputum
[2022-01-09] MEDS: IPRATROPIUM-ALBUTEROL 3 ML NEB INHALATION SCH ×4 (08:58→20:03)
[2022-01-09] MEDS: ATORVASTATIN 40 MG TAB PO SCH (09:15)
[2022-01-09] MEDS: CHLORHEXIDINE GLUCONATE 15 ML CUP MUCOUS MEM SCH (09:15)
[2022-01-09] MEDS: ASPIRIN 81 MG PO SCH (09:15)
[2022-01-09] MEDS: PANTOPRAZOLE 40 MG/10 ML VIAL IV SCH (09:15)
[2022-01-09] MEDS: METOPROLOL TARTRATE 25 MG TAB PO SCH ×2 (09:16→20:31)
[2022-01-09 11:22] LABS: Glucose,Whole Blood 152 mg/dL (70-110)
--- NOTE | 2022-01-09 15:44 | P.PN ---
Subjective Progress Note Date: 01/09/22 This is a 61-year-old male patient, known history of CHF with a previous LV ejection fraction being in the order of 40% on echocardiogram that was done in January 2021. The patient also had a cardiac stress test revealing anteroseptal ischemia with an ejection fraction of 34%. Nevertheless, back then , he did not want to do any further treatment. He did not pursue any treatment. It is not pursue a cardiac catheterization. Over the past 1 week, the patient has been having worsening shortness of breath. This has been noted by the family. No chest pain. No angina. No palpitations. No sweating. No arm or neck pain. Early this morning, the patient became very short of breath and he arrived to the emergency department in significant respiratory distress. The patient was unresponsive at time of arrival. He was immediately intubated and placed on mechanical ventilator. His chest x-ray was consistent with pulmonary edema. The initial chest x-ray was consistent with pulmonary edema. EKG showed atrial flutter with rapid ventricular response and the patient had voltage criteria of LVH. . The proBNP level was 4017. Troponin initially was at 0.09 and subsequently came back at 1.5. The His systolic blood pressure was as high as 150-113 and later on it was also noted to be at 223/184. The patient was immediately intubated and placed on a mechanical ventilator and the patient was also started on diuretics. Post intubation blood gases showed a patient of 7.21 with a pCO2 of 67 pO2 of 63 and this was identified to percent and currently the patient is an assist-control mode at the rate of 16 with tidal volume of 500 and FiO2 of 60% with a PEEP of 5. At this point in time, the patient is sedated with propofol which is currently running at 25 mcg/kg per minute. Cardiac r hythm is sinus. The patient was started on Lasix 40 mg IV every 8 hours and the patient is producing excellent urine output. The patient is also on IV heparin. Cardiology is on the case. Echocardiogram is in progress. Patient was also started on Estrace 1 mg by mouth daily and statins in the form of Lipitor 40 mg by mouth daily. He is a chronic smoker. On 01/09/2022, I'm seeing the patient for a follow-up regarding acute hypoxic respiratory failure, acute pulmonary edema, acute congestion heart failure and acute non-ST segment elevation myocardial infarction. This morning, the patient is on propofol which is running at 35 mcg/kg per minute and the patient is adequately sedated for now. The patient is hemodynamically stable on no pressors. Troponin peaked at 4.8 as the patient suffered an acute non-ST segment elevation myocardial infarctions the patient remains on examination as pirin and IV heparin and metoprolol. Echocardiogram showed impaired LV function and there was systolic heart failure with an ejection fraction of 30-35%. The patient's follow-up chest x-ray from today showing prominent pulmonary edema and the patient remains intubated on mechanical ventilator. This morning he is an assist-control mode rate of 60 with tidal volume of 500 and FiO2 of 40% with a P EEP of 5. Blood gas showed a pH of 7.42 with a pCO2 of 51 and pO2 of 80. The white cell count 11.7 with a hemoglobin of 14.8 and the plated count of 213. Sodium is at 141 and his serum bicarbonate 31 with a potassium level of 3.7. BUN is 19 with a creatinine of 1.2. The patient has adequate urine output. Patient is on IV Lasix 40 mg every 8 hours and the patient is producing good urine output for now. No other significant events overnight. Objective - Vital Signs Vital signs: Vital Signs Temp 98.5 F 01/09/22 14:00 Pulse 87 01/09/22 15:00 Resp 16 01/09/22 15:00 BP 124/81 01/09/22 15:00 Pulse Ox 91 L 01/09/22 15:00 FiO2 40 01/09/22 11:16 Intake & Output 01/08/22 01/09/22 01/09/22 18:59 06:59 18:59 Intake Total 396.067 346.744 0973.249 Output Total 670 1360 985 Balance -273.933 -702.206 867.249 Weight 93.8 kg Intake: IV 819 404 8428.187 Heparin Sod,Pork in 0.45% 1240.96 NaCl 25,000 unit In 0.45 % NaCl 1 250ml.bag @ 10. 537 UNITS/KG/HR 10 mls/hr IV .Q24H [facility] Rx#: [id number] NS 120 360 240 propofoL 1,000 mg In 86.227 Empty Bag 1 bag @ 5 MCG/ KG/MIN 2.847 mls/hr IV . Q24H [facility] Rx#:[id number] Intake, IV Titration 276.067 297.794 285.062 Amount Heparin Sod,Pork in 0.45% 58.5 177.28 NaCl 25,000 unit In 0.45 % NaCl 1 250ml.bag @ 10. 537 UNITS/KG/HR 10 mls/hr IV .Q24H [facility] Rx#: [id number] Sodium Chloride 0.9% 1, 130 000 ml @ 130 mls/hr IV . Q7H42M [facility] Rx#:[id number] propofoL 1,000 mg In 87.567 297.794 107.782 Empty Bag 1 bag @ 5 MCG/ KG/MIN 2.847 mls/hr IV . Q24H [facility] Rx#:[id number] Output: Gastric Drainage 300 20 Urine 670 1060 965 Other: Voiding Method Indwelling Catheter Indwelling Catheter Indwelling Catheter - Exam Intubated on mechanical ventilator, sedated, comfortable Head exam was generally normal. There was no scleral icterus or corneal arcus. Mucous membranes were moist. Neck was supple and without jugular venous distension, thyromegaly, or carotid bruits. Carotids were easily palpable bilaterally. There was no adenopathy. Positive JVDs are noted and the patient has a orogastric and orotracheal tube are both being in good location. Lungs sounds are clear admission lung bases along with some crackles in lung bases bilaterally. Cardiac exam revealed the PMI to be normally situated and sized. The rhythm was regular and no extrasystoles were noted during several minutes of auscultation. The first and second heart sounds were normal and physiologic splitting of the second heart sound was noted. There were no murmurs, rubs, clicks, or gallops. Abdominal exam revealed normal bowel sounds. The abdomen was soft, non-tender, and without masses, organomegaly, or appreciable enlargement of the abdominal aorta. Examination of the extremities revealed easily palpable radial, femoral and p edal pulses. There was no cyanosis, clubbing or edema. Examination of the skin revealed no evidence of significant rashes, suspicious appearing nevi or other concerning lesions. Neurologically, the patient is awake and alert and the patient does not have any focal neurological deficit. Cranial nerves are essentially intact. - Labs CBC & Chem 7: 01/09/22 06:32 01/09/22 06:32 Labs: Abnormal Lab Results - Last 24 Hours (Table) 01/08/22 01/08/22 01/09/22 Range/Units 22:55 22:55 00:00 WBC 12.2 H (3.8-10.6) k/uL Neutrophils # 11.2 H (1.3-7.7) k/uL Lymphocytes # 0.7 L (1.0-4.8) k/uL PT (9.0-12.0) sec APTT 48.0 H (22.0-30.0) sec ABG pCO2 (35-45) mmHg ABG pO2 (83-108) mmHg ABG HCO3 (21-25) mmol/L ABG Total CO2 (19-24) mmol/L Carbon Dioxide (22-30) mmol/L BUN (9-20) mg/dL Creatinine (0.66-1.25) mg/dL Glucose (74-99) mg/dL POC Glucose (mg/dL) 160 H (70-110) mg/dL AST (17-59) U/L Total Protein (6.3-8.2) g/dL Albumin (3.5-5.0) g/dL 01/09/22 01/09/22 01/09/22 Range/Units 05:50 06:13 06:32 WBC (3.8-10.6) k/uL Neutrophils # (1.3-7.7) k/uL Lymphocytes # (1.0-4.8) k/uL PT (9.0-12.0) sec APTT (22.0-30.0) sec ABG pCO2 51 H (35-45) mmHg ABG pO2 80 L (83-108) mmHg ABG HCO3 33 H (21-25) mmol/L ABG Total CO2 34 H (19-24) mmol/L Carbon Dioxide 31 H (22-30) mmol/L BUN 29 H (9-20) mg/dL Creatinine 1.27 H (0.66-1.25) mg/dL Glucose 155 H (74-99) mg/dL POC Glucose (mg/dL) 143 H (70-110) mg/dL AST 61 H (17-59) U/L Total Protein 6.0 L (6.3-8.2) g/dL Albumin 3.4 L (3.5-5.0) g/dL 01/09/22 01/09/22 01/09/22 Range/Units 06:32 06:32 11:21 WBC 11.7 H (3.8-10.6) k/uL Neutrophils # 10.5 H (1.3-7.7) k/uL Lymphocytes # 0.7 L (1.0-4.8) k/uL PT 12.2 H (9.0-12.0) sec APTT 49.9 H (22.0-30.0) sec ABG pCO2 (35-45) mmHg ABG pO2 (83-108) mmHg ABG HCO3 (21-25) mmol/L ABG Total CO2 (19-24) mmol/L Carbon Dioxide (22-30) mmol/L BUN (9-20) mg/dL Creatinine (0.66-1.25) mg/dL Glucose (74-99) mg/dL POC Glucose (mg/dL) 152 H (70-110) mg/dL AST (17-59) U/L Total Protein (6.3-8.2) g/dL Albumin (3.5-5.0) g/dL Microbiology - Last 24 Hours (Table) 01/08/22 04:48 Gram Stain - Preliminary Sputum Sputum Culture - Preliminary Assessment and Plan Plan: Acute hypoxic respiratory failure secondary to pulmonary edema, currently intubated on mechanical ventilator, currently intubated on mechanical ventilator and there is interval improvement in the patient's pulmonary edema, blood gases and acid base balance. Acute decompensated CHF, consistent with systolic heart failure as the patient is known to have some mild impairment of the LV function with an ejection fraction of 40-45% based on her present cardiac up from January 2021, repeat echocardiogram showed further impairment of LV function patient ejection fraction is around 30-35% Acute non-ST segment elevation myocardial infarction, currently on IV heparin and aspirin and beta blockers. Troponin peaked at 4.8 Acute atrial flutter with RVR, improved and the patient's cardiac rhythm is sinus Hypertension with elevated blood pressure, improved Chronic smoker Plan Wean off propofol Check weaning parameters Mental status once the patient is off propofol Assessment this to wean The patient spontaneous breathing trial if the patient shows and demonstrated adequate weaning parameters. Continue Lasix 40 mg every 8 hours Monitor troponins and continue the patient IV heparin EchoWas noted Continue aspirin Agree on metoprolol 25 mg twice a day Agree on Lipitor 40 mg by mouth daily Continue bronchodilators Continue steroids We'll continue to follow make further adjustments based on patient's clinical response. May need ultimately a cardiac catheterization. Condition is critical at this point in time. Family has been updated. regarding her evaluation was done and more than 35 minutes Time with Patient: Greater than 30
--- NOTE | 2022-01-09 16:20 | P.PN ---
Subjective Progress Note Date: 01/09/22 Patient is a 61-year-old male with a known history of coronary artery disease and abdominal myocardial perfusion imaging in January 2021, patient opted for medical management and echocardiogram showed ejection fraction 40% presents to ER with complaints of sudden onset of severe shortness of breath last night. Patient has been having worsening breathing status for the past 1 week. Patient was unresponsive at the time of arrival. He was immediately intubated and placed on mechanical ventilator. Chest x-ray showed diffuse pulmonary interstitial edema which could be acute pneumonia or acute heart failure. CT head and cervical spine showed spondylitic changes in the mid and lower cervical spine. No fracture. Negative CT scan of the brain. Ethmoid sinusitis. CT of the thoracic aorta is negative. There is pulmonary edema with small pleural effusions and bilateral pulmonary infiltrates and atelectasis. This could be congestive heart failure. EKG showed atrial flutter/tachycardia with rapid ventricle response. On admission patient was tachycardic. Blood pressure was 158/113 mmHg Laboratory test showed WBC 10.9 hemoglobin level of 16.6 platelets 267 INR 1.2 ABG showed pH 7.21 PCO2 67 PO2 363 Sodium 140 potassium 4.6 chloride 103 bicarb is 20 BUN 18 and creatinine 1.23 and blood sugar is 325 Lactic acid 5.4 magnesium 2.5, proBNP is 4070 Troponin 0.096, 01.560, 4.82 01/09/2022 Patient is seen and evaluated and follow-up continues to be the ICU with cardiology and pulmonary retail loss prevention investigator following closely. Patient was intubated with weaning parameters within normal limits and just underwent successful extubation and is currently maintained on 3 L via nasal cannula maintaining oxygen saturation above 91%. Patient continues on IV Lasix along with IV heparin with cardiology following as well. Patient needs to have cardiac catheterization as he was hospitalized previously recommending this although patient wanted to continue with maximizing medical management. Patient does have a history of some noncompliance. Blood sugars were elevated on admission and recommend continue with Accu-Cheks before meals and at bedtime and sliding scale as needed. Follow up on hemoglobin A1c was 6.0 and will not initiate new medications at this time but continue to monitor with sliding scale and have patient follow-up in the outpatient setting. Patient denies any previous history of diabetes. Patient is afebrile and denies chest pain or palpitations. Patient is currently nothing by mouth per protocol status post extubation and continues to ask for food. Review of systems: Constitutional: No reports of fatigue, fever, or chills, reports some sore throat Cardiovascular: No reports of chest pain or palpitations Respiratory: reports of shortness of breath and occasional cough GI: No reports of nausea, vomiting, or diarrhea : No reports of dysuria or retention Neurovascular: reports of weakness All medications have been reviewed Active Medications Albuterol/Ipratropium (Ipratropium-Albuterol 3 Ml Neb) 3 ml INHALATION RT-QID [facility] Last Admin: 01/09/22 15:55 Dose: 3 ml Aspirin (Aspirin 81 Mg) 81 mg PO DAILY [facility] Last Admin: 01/09/22 09:15 Dose: 81 mg Atorvastatin Calcium (Atorvastatin 40 Mg Tab) 40 mg PO DAILY [facility] Last Admin: 01/09/22 09:15 Dose: 40 mg Chlorhexidine Gluconate (Chlorhexidine Gluconate 15 Ml Cup) 15 ml MUCOUS MEM BID [facility] Last Admin: 01/09/22 09:15 Dose: 15 ml Dextrose/Water (Dextrose 50% Syringe 50 Ml) 25 ml IVP PER PROTOCOL PRN; Protocol PRN Reason: Hypoglycemia Dextrose/Water (Dextrose 50% Syringe 50 Ml) 50 ml IVP PER PROTOCOL PRN; Protocol PRN Reason: Hypoglycemia Furosemide (Furosemide 10 Mg/Ml 4 Ml Vial) 40 mg IV Q8HR [facility] Last Admin: 01/09/22 09:15 Dose: 40 mg Heparin Sodium (Porcine) (Heparin Sodium 1,000 Un/Ml (10ml Vl)) 0 unit IV PER PROTOCOL PRN; Protocol PRN Reason: Low PTT Last Admin: 01/08/22 16:25 Dose: 2,370 unit Propofol 1,000 mg/ IV Solution 100 mls @ 2.847 mls/hr IV .Q24H [facility]; Protocol Last Titration: 01/09/22 11:00 Dose: 0 mcg/kg/min, 0 mls/hr Heparin Sodium/Sodium Chloride (25,000 unit/ Sodium Chloride) 250 mls @ 10 mls/hr IV .Q24H [facility]; Protocol Last Admin: 01/09/22 07:14 Dose: 12.537 units/kg/hr, 11.898 mls/hr Insulin Aspart (Insulin Aspart (Novolog) 100 Unit/Ml Vial) 0 unit SQ Q6H [facility]; Protocol Last Admin: 01/09/22 11:31 Dose: Not Given Methylprednisolone Sodium Succinate (Methylprednisolone Sod Succi 125 Mg/2 Ml Vial) 60 mg IV Q6HR [facility] Last Admin: 01/09/22 11:32 Dose: 60 mg Metoprolol Tartrate (Metoprolol Tartrate 25 Mg Tab) 25 mg PO BID [facility] Last Admin: 01/09/22 09:16 Dose: 25 mg Morphine Sulfate (Morphine Sulfate 4 Mg/Ml Syringe) 4 mg IV Q4HR PRN PRN Reason: Pain Scale 8 to 10 Naloxone HCl (Naloxone 0.4 Mg/Ml 1 Ml Vial) 0.2 mg IV Q2M PRN PRN Reason: Opioid Reversal Ondansetron HCl (Ondansetron 4 Mg/2 Ml Vial) 4 mg IVP Q6HR PRN PRN Reason: Nausea And Vomiting Pantoprazole Sodium (Pantoprazole 40 Mg/10 Ml Vial) 40 mg IV DAILY [facility] Last Admin: 01/09/22 09:15 Dose: 40 mg PHYSICAL EXAMINATION: Constitutional: Patient is awake alert and oriented 2-3 and was just extubated approximately 45 minutes prior to exam maintained on 3 L via nasal cannula. HEENT: Normocephalic. Neck is supple. Pupils reactive. Nostrils clear. Oral cavity is moist. Neck reveals no JVD, carotid bruits, or thyromegaly. CHEST EXAMINATION: Trachea is central. Symmetrical expansion. Lung burden clear to auscultation and percussion. Bibasilar diminished sounds. No wheezing. CARDIAC: Normal S1, S2 with no gallops. No murmurs ABDOMEN: Soft. Bowel sounds present. Nontender. No organomegaly. No abdominal bruits. Extremities: reveal trace pedal edema. No clubbing or cyanosis Neurologically patient is awake although continues with some periodic confusion repeating himself with son at the bedside who noticed as well and reports he is much improved within this last hour. No gross focal deficits noted Skin: No rash or skin lesions. Psychiatric: Cooperative, nonsuicidal Musculoskeletal: No joint swelling or deformity. Assessment: Acute hypoxic respiratory failure secondary to CHF exacerbation. Requiring mechanical ventilation, patient was just extubated this morning 01/09/2022 Acute on chronic CHF with systolic dysfunction ejection fraction 40% Acute non-ST elevated NE History of abnormal MPI in January 2021. Patient opted for medical management at that time. New onset atrial flutter with rapid ventricular rate. Correlate for sinus node. Hyperglycemia. Possible new onset pre-diabetes. Hemoglobin A1c is 6.0 Uncontrolled hypertension History of smoking Medication noncompliance GI and DVT prophylaxis. Full code Plan: Recommend to continue with telemetry monitoring and ICU management at this time as patient was just extubated approximately 45 minutes ago this morning on 01/09/2022. Patient continues to require oxygen via nasal cannula at 2-3 L and does not normally wear any oxygen at home. Patient is also continued on IV Lasix along with IV heparin and IV steroids and will continue. Patient was successfully extubated and recommend to continue with ICU monitoring for another 24 hours as patient has not yet stable for transfer out of the ICU. Blood sugars were elevated and recommend continue with Accu-Cheks before meals and at bedtime and sliding scale. Patient denies history of diabetes may be a component of new onset prediabetes is hemoglobin A1c is found to be 6.0. We'll continue with sliding scale for now and have patient follow-up in the outpatient setting with primary care provider once stabilized. Patient is maintained on IV steroids along with breathing inhalational treatments and recommend continue. Recommend chest x-ray in the a.m. followed with repeat labs. Recommend to continue monitoring intake and output closely Patient had previous admission and cardiology evaluated the patient recommending cardiac catheterization and patient opted for maximizing medical management and reports to feeling nervous about having cardiac catheterization. Cardiology is following currently and would like to perform cardiac catheterization once patient is stable. This was discussed with family along with patient at the bedside in detail. Recommend continue telemetry monitoring Due to multiple convex medical issues, prognosis is guarded The impression and plan of care has been dictated by Harper Frank, Nurse Practitioner as directed. Dr. Axel MD I have performed a history and examination and MDM of this patient, discussed the same with the dictator, and agree with the dictator's assessment and plan as written ,documented as a scribe. Based on total visit time, I have performed more than 50% of the visit. Objective - Vital Signs Vital signs: Vital Signs Temp 100.1 F H 01/09/22 08:00 Pulse 82 01/09/22 09:09 Resp 21 01/09/22 08:00 BP 117/78 01/09/22 08:00 Pulse Ox 94 L 01/09/22 08:00 FiO2 50 01/09/22 08:00 Intake & Output 01/08/22 01/09/22 01/09/22 18:59 06:59 18:59 Intake Total 396.067 657.794 450.787 Output Total 670 1360 245 Balance -273.933 -702.206 205.787 Weight 93.8 kg Intake: IV 120 360 273.507 Heparin Sod,Pork in 0.45% 177.28 NaCl 25,000 unit In 0.45 % NaCl 1 250ml.bag @ 10. 537 UNITS/KG/HR 10 mls/hr IV .Q24H [facility] Rx#: [id number] NS 120 360 60 propofoL 1,000 mg In 36.227 Empty Bag 1 bag @ 5 MCG/ KG/MIN 2.847 mls/hr IV . Q24H [facility] Rx#:[id number] Intake, IV Titration 276.067 297.794 177.28 Amount Heparin Sod,Pork in 0.45% 58.5 177.28 NaCl 25,000 unit In 0.45 % NaCl 1 250ml.bag @ 10. 537 UNITS/KG/HR 10 mls/hr IV .Q24H [facility] Rx#: [id number] Sodium Chloride 0.9% 1, 130 000 ml @ 130 mls/hr IV . Q7H42M [facility] Rx#:[id number] propofoL 1,000 mg In 87.567 297.794 Empty Bag 1 bag @ 5 MCG/ KG/MIN 2.847 mls/hr IV . Q24H [facility] Rx#:[id number] Output: Gastric Drainage 300 20 Urine 670 1060 225 Other: Voiding Method Indwelling Catheter Indwelling Catheter Indwelling Catheter - Labs CBC & Chem 7: 01/09/22 06:32 01/09/22 06:32 Labs: Abnormal Lab Results - Last 24 Hours (Table) 01/08/22 01/08/22 01/08/22 Range/Units 08:05 11:32 13:59 WBC (3.8-10.6) k/uL Neutrophils # (1.3-7.7) k/uL Lymphocytes # (1.0-4.8) k/uL PT (9.0-12.0) sec APTT (22.0-30.0) sec ABG pCO2 (35-45) mmHg ABG pO2 (83-108) mmHg ABG HCO3 (21-25) mmol/L ABG Total CO2 (19-24) mmol/L Carbon Dioxide (22-30) mmol/L BUN (9-20) mg/dL Creatinine (0.66-1.25) mg/dL Glucose (74-99) mg/dL POC Glucose (mg/dL) 145 H (70-110) mg/dL AST (17-59) U/L Troponin I 1.560 H* 4.820 H* (0.000-0.034) ng/mL Total Protein (6.3-8.2) g/dL Albumin (3.5-5.0) g/dL 01/08/22 01/08/22 01/08/22 Range/Units 14:41 22:55 22:55 WBC 12.2 H (3.8-10.6) k/uL Neutrophils # 11.2 H (1.3-7.7) k/uL Lymphocytes # 0.7 L (1.0-4.8) k/uL PT (9.0-12.0) sec APTT 42.7 H 48.0 H (22.0-30.0) sec ABG pCO2 (35-45) mmHg ABG pO2 (83-108) mmHg ABG HCO3 (21-25) mmol/L ABG Total CO2 (19-24) mmol/L Carbon Dioxide (22-30) mmol/L BUN (9-20) mg/dL Creatinine (0.66-1.25) mg/dL Glucose (74-99) mg/dL POC Glucose (mg/dL) (70-110) mg/dL AST (17-59) U/L Troponin I (0.000-0.034) ng/mL Total Protein (6.3-8.2) g/dL Albumin (3.5-5.0) g/dL 01/09/22 01/09/22 01/09/22 Range/Units 00:00 05:50 06:13 WBC (3.8-10.6) k/uL Neutrophils # (1.3-7.7) k/uL Lymphocytes # (1.0-4.8) k/uL PT (9.0-12.0) sec APTT (22.0-30.0) sec ABG pCO2 51 H (35-45) mmHg ABG pO2 80 L (83-108) mmHg ABG HCO3 33 H (21-25) mmol/L ABG Total CO2 34 H (19-24) mmol/L Carbon Dioxide (22-30) mmol/L BUN (9-20) mg/dL Creatinine (0.66-1.25) mg/dL Glucose (74-99) mg/dL POC Glucose (mg/dL) 160 H 143 H (70-110) mg/dL AST (17-59) U/L Troponin I (0.000-0.034) ng/mL Total Protein (6.3-8.2) g/dL Albumin (3.5-5.0) g/dL 01/09/22 01/09/22 01/09/22 Range/Units 06:32 06:32 06:32 WBC 11.7 H (3.8-10.6) k/uL Neutrophils # 10.5 H (1.3-7.7) k/uL Lymphocytes # 0.7 L (1.0-4.8) k/uL PT 12.2 H (9.0-12.0) sec APTT 49.9 H (22.0-30.0) sec ABG pCO2 (35-45) mmHg ABG pO2 (83-108) mmHg ABG HCO3 (21-25) mmol/L ABG Total CO2 (19-24) mmol/L Carbon Dioxide 31 H (22-30) mmol/L BUN 29 H (9-20) mg/dL Creatinine 1.27 H (0.66-1.25) mg/dL Glucose 155 H (74-99) mg/dL POC Glucose (mg/dL) (70-110) mg/dL AST 61 H (17-59) U/L Troponin I (0.000-0.034) ng/mL Total Protein 6.0 L (6.3-8.2) g/dL Albumin 3.4 L (3.5-5.0) g/dL Microbiology - Last 24 Hours (Table) 01/08/22 04:48 Gram Stain - Preliminary Sputum Sputum Culture - Preliminary
[2022-01-09 17:47] LABS: Glucose,Whole Blood 144 mg/dL (70-110)
[2022-01-09 20:27] LABS: Glucose,Whole Blood 147 mg/dL (70-110)
[2022-01-10] MEDS: methylPREDNISolone SOD SUCCI 125 MG/2 ML VIAL IV SCH ×2 (00:19→06:00)
[2022-01-10] MEDS: FUROSEMIDE 10 MG/ML 4 ML VIAL IV SCH ×2 (00:19→08:01)
[2022-01-10] MEDS: HEPARIN SOD,PORK IN 0.45% NACL 25,000 UNIT in 0.45% NACL 1 250ML.BAG IV SCH (04:16)
[2022-01-10 06:52] LABS: HCT 45.2 % (39.0-53.0); HGB 14.5 gm/dL (13.0-17.5); MCH 30.8 pg (25.0-35.0); MCHC 32.1 g/dL (31.0-37.0); MCV 95.9 fL (80.0-100.0); Mean Platelet Volume 8.7; Platelet Count 202 k/uL (150-450); RBC 4.71 m/uL (4.30-5.90); RDW 13.8 % (11.5-15.5); WBC 12.2 k/uL (3.8-10.6)
[2022-01-10] MEDS ORDERED: HEPARIN SODIUM,PORCINE 10,000 UNIT in SODIUM CHLORIDE 0.9% 1,000 ML IRRIGATION PRN (07:00)
[2022-01-10] MEDS ORDERED: HEPARIN SODIUM,PORCINE 2,500 UNIT in SODIUM CHLORIDE 0.9% 250 ML IRRIGATION PRN (07:00)
[2022-01-10 07:01] LABS: Glucose,Whole Blood 141 mg/dL (70-110)
[2022-01-10] MEDS: INSULIN ASPART (NovoLOG) 100 UNIT/ML VIAL SQ SCH ×4 (07:08→20:32)
[2022-01-10 07:13] LABS: Calcium 8.6 mg/dL (8.4-10.2); Potassium 3.6 mmol/L (3.5-5.1)
--- NOTE | 2022-01-10 07:19 | XR ---
EXAMINATION TYPE: XR chest 1V portable DATE OF EXAM: 01/10/2022 HISTORY: Shortness of breath. COMPARISON: 1122 TECHNIQUE: Single view of the chest is submitted. FINDINGS: Demonstrated are scattered senescent parenchymal change. Endotracheal and NG tubes have been removed in the interval. There is no evidence for focal infiltrate. Mild strandy atelectasis left lung base. The heart is stable. Hilar and mediastinal structures are within normal limits. Degenerative changes are seen of the dorsal spine. IMPRESSION: 1. Mild strandy atelectasis left lung base.Endotracheal and NG tubes have been removed in the interv al.
[2022-01-10] MEDS: IPRATROPIUM-ALBUTEROL 3 ML NEB INHALATION SCH ×4 (07:26→19:34)
[2022-01-10] MEDS: METOPROLOL TARTRATE 25 MG TAB PO SCH ×2 (08:02→20:44)
[2022-01-10] MEDS: ATORVASTATIN 40 MG TAB PO SCH (08:02)
[2022-01-10] MEDS: PANTOPRAZOLE 40 MG/10 ML VIAL IV SCH (08:02)
[2022-01-10] MEDS: ASPIRIN 81 MG PO SCH (08:02)
[2022-01-10] MEDS ORDERED: ATORVASTATIN 80 MG TAB PO STA (08:24)
[2022-01-10] MEDS ORDERED: ASPIRIN 325 MG TAB PO STA (08:24)
[2022-01-10] MEDS ORDERED: ALPRAZolam 0.25 MG TAB PO PRN (08:24)
[2022-01-10] MEDS ORDERED: NITROGLYCERIN SL TABS 0.4 MG TAB SUBLINGUAL PRN ×2 (08:24→14:02)
[2022-01-10] MEDS ORDERED: ALPRAZolam 0.5 MG TAB PO PRN (08:24)
--- NOTE | 2022-01-10 08:24 | P.PN ---
Subjective Progress Note Date: 01/10/22 PROGRESS NOTE The patient is a 61-year-old male who presented with acute respiratory distress, requiring mechanical ventilation. He remains intubated but following commands. He is in sinus mechanism. He is on the low dose of norepinephrine. His urine output is good. He has no evidence of malignant arrhythmia. His echocardiogram showed an ejection fraction of 30-35% with no mention of segmental wall motion. No significant valvular disease was noted. He has a prior history of cardiomyopathy with abnormal stress test a year ago. He has been seen by Dr. Whatley in the past and cardiac catheterization was recommended. His troponin peak was 4.8 January 10: The patient is extubated, feels well this morning, his breathing is better, he denies any chest discomfort, dizziness or palpitations. He continues to be in sinus mechanism. Hemodynamically he stable with good urinary output. He has no evidence of atrial fibrillation or ventricular tachycardia. He has evidence of cardiomyopathy on his echocardiogram. Medications: Aspirin once a day, Lipitor 40 mg daily, IV heparin, metoprolol tartrate 25 mg twice a day, Lasix 40 mg IV every 8 hours PHYSICAL EXAMINATION: Blood pressure 131/80 heart rate 90, . LUNGS: Scattered rhonchi HEART: Regular rate and rhythm, S1, S2. No S3. systolic systolic ejection murmur ABDOMEN: Soft, nontender, no organomegaly EXTREMETIES: No edema LAB: Troponin 4.8 IMPRESSION: 1. Respiratory failure with pulmonary edema, resolved 2. Non-STEMI 3. Severe cardiomyopathy, unclear etiology 4. History of chronic tobacco use 5. History of hypertension PLAN: 1. Decrease diuretics 2. Add DANICA inhibitor 3. Proceed with cardiac catheterization, the risks and the complications were discussed with the patient, he is in agreement to proceed. The procedure will be done by Dr. Whatley 4. Depending on the results of the cardiac catheterization further recommendat ions will be made. Objective - Vital Signs Vital signs: Vital Signs Temp 98.8 F 01/10/22 04:00 Pulse 98 01/10/22 07:42 Resp 12 01/10/22 07:00 BP 131/89 01/10/22 07:00 Pulse Ox 92 L 01/10/22 07:31 FiO2 40 01/09/22 11:16 Intake & Output 01/09/22 01/10/22 01/10/22 18:59 06:59 18:59 Intake Total 2681.369 1217.28 Output Total 1495 1720 60 Balance 1186.369 -502.72 -60 Weight 93.4 kg Intake: IV 2396.307 207.28 Heparin Sod,Pork in 0.45% 1950.08 177.28 NaCl 25,000 unit In 0.45 % NaCl 1 250ml.bag @ 10. 537 UNITS/KG/HR 10 mls/hr IV .Q24H [facility] Rx#: [id number] NS 360 30 propofoL 1,000 mg In 86.227 Empty Bag 1 bag @ 5 MCG/ KG/MIN 2.847 mls/hr IV . Q24H [facility] Rx#:[id number] Intake, IV Titration 285.062 250 Amount Heparin Sod,Pork in 0.45% 177.28 250 NaCl 25,000 unit In 0.45 % NaCl 1 250ml.bag @ 10. 537 UNITS/KG/HR 10 mls/hr IV .Q24H [facility] Rx#: [id number] propofoL 1,000 mg In 107.782 Empty Bag 1 bag @ 5 MCG/ KG/MIN 2.847 mls/hr IV . Q24H [facility] Rx#:[id number] Oral 760 Output: Gastric Drainage 20 Urine 1475 1720 60 Other: Voiding Method Indwelling Catheter Indwelling Catheter - Labs CBC & Chem 7: 01/10/22 06:30 01/10/22 06:30 Labs: Abnormal Lab Results - Last 24 Hours (Table) 01/09/22 01/09/22 01/09/22 Range/Units 11:21 17:46 20:25 WBC (3.8-10.6) k/uL APTT (22.0-30.0) sec Carbon Dioxide (22-30) mmol/L BUN (9-20) mg/dL Glucose (74-99) mg/dL POC Glucose (mg/dL) 152 H 144 H 147 H (70-110) mg/dL 01/10/22 01/10/22 01/10/22 Range/Units 06:30 06:30 06:30 WBC 12.2 H (3.8-10.6) k/uL APTT 46.8 H (22.0-30.0) sec Carbon Dioxide 34 H (22-30) mmol/L BUN 36 H (9-20) mg/dL Glucose 159 H (74-99) mg/dL POC Glucose (mg/dL) (70-110) mg/dL 01/10/22 Range/Units 07:00 WBC (3.8-10.6) k/uL APTT (22.0-30.0) sec Carbon Dioxide (22-30) mmol/L BUN (9-20) mg/dL Glucose (74-99) mg/dL POC Glucose (mg/dL) 141 H (70-110) mg/dL Microbiology - Last 24 Hours (Table) 01/08/22 04:48 Gram Stain - Preliminary Sputum Sputum Culture - Preliminary
[2022-01-10] MEDS ORDERED: ATORVASTATIN 40 MG TAB PO ONE (08:45)
[2022-01-10] MEDS: FUROSEMIDE 40 MG TAB PO SCH ×2 (11:18→17:15)
[2022-01-10 11:46] LABS: Glucose,Whole Blood 145 mg/dL (70-110)
[2022-01-10] MEDS ORDERED: IV FLUID CONTINUATION 800 ML IV ONE (12:42)
[2022-01-10] MEDS ORDERED: LIDOCAINE 1% INJ 10MG/ML (5 ML VIAL-PF) SQ ONE (12:50)
[2022-01-10] MEDS ORDERED: MIDAZOLAM 2 MG/2 ML VIAL IV ONE ×2 (12:50→13:05)
[2022-01-10] MEDS ORDERED: VERAPAMIL SYRINGE (5 MG/10 ML) INTRAARTER ONE (12:51)
[2022-01-10] MEDS: HEPARIN SODIUM 1,000 UN/ML (10ML VL) IV ONE ×2 (13:07→13:48)
[2022-01-10] MEDS ORDERED: IOPAMIDOL-370 125ML BTL INJ ONE (13:24)
[2022-01-10] MEDS ORDERED: HYDROmorphone 0.5 MG/0.5 ML SYRINGE IVP ONE (13:36)
[2022-01-10] MEDS: niCARdipine Syringe (1,000 mcg/10 mL) INTRACORON ONE ×2 (13:38→13:47)
[2022-01-10] MEDS: NITROGLYCERIN 1000MCG/10ML SYRINGE INTRACORON ONE ×3 (13:39→13:55)
[2022-01-10] MEDS ORDERED: PRASUGREL 10 MG TAB ONE (13:51)
[2022-01-10] MEDS ORDERED: PRASUGREL 10 MG TAB PO ONE (13:53)
[2022-01-10] MEDS ORDERED: RX INFO: IV CONTRAST WAS GIVEN 1 EACH MISC MISCELLANE PRN (14:02)
[2022-01-10] MEDS ORDERED: ZOLPIDEM 5 MG TAB PO PRN (14:02)
[2022-01-10] MEDS ORDERED: MAG HYDROX/AL HYDROX/SIMETH 30 ML CUP PO PRN (14:02)
[2022-01-10] MEDS ORDERED: ATROPINE SULFATE 0.1 MG/ML 10ML SYRINGE IV PRN (14:02)
[2022-01-10] MEDS ORDERED: IOPAMIDOL-370 100ML BTL INJ ONE (14:05)
--- NOTE | 2022-01-10 14:11 | P.PCN ---
Date of Procedure: 01/10/22 Operative Findings: CARDIAC CATHETERIZATION AND PERCUTANEOUS CORONARY INTERVENTION PERFORMING PHYSICIAN: Joseph Whatley MD, [facility] PROCEDURE PERFORMED: 1. Selective right and left coronary angiogram 2. Successful stenting of mid LAD using 3.25 x 18 and 3.0 x 18 Xience DANNY which with an excellent angiographic results INDICATION: This is a 61-year-old gentleman who presented to the hospital with shortness of breath. He was ruled in for acute coronary event. Subsequently he developed acute hypoxic respiratory failure requiring intubation and mechanical ventilation. Neck was performed and showed severe cardiomyopathy. In the light of that heart catheterization was advised COMPLICATION: None APPROACH: Right radial artery LEVEL OF SEDATION: Moderate with the sedation time off 19 minutes PROCEDURE DESCRIPTION: After obtaining an informed consent the patient was brought to the cardiac catholic priest. The right radial artery was cannulated using micropuncture technique, the micro-rupture wire passed easily then I placed a 6-Urdu sheath. I gave the patient 2 mg of verapamil intra-arterial. Subsequently I did selective right and left coronary angiograms JR4 and JL4 catheters. After that I did intervene on the LAD SELECTIVE CORONARY ANGIOGRAM: The right coronary artery: Is a large caliber vessel and is dominant vessel. The RCA in the midportion is diffusely diseased up to about 60%. Left main: As mild disease only. It a calcified left main The left circumflex: The proximal left circumflex has a lesion appears to be in the range of 30%. Gives rises into an OM1 which has mild disease only. The circumflex distally gives rise into a small going to which also appeared to be angiographically normal. The left anterior descending artery: Is a large caliber vessel. The proximal LAD appears to be calcified was mild to moderate diffuse disease. The mid LAD between the bifurcation of first and second diagonal branches has a lesion appeared to be in the range of 99.9%. HEMODYNAMICS: [] PCI OF THE LAD: Anticoagulation was initiated using heparin with continuous ACT monitoring. Subsequently I did engage the left main using an EBU 3.5 guiding catheter. I did wire the LAD using a whisper wire. After that I did attempt 2.5 x 12 mm balloon and the balloon would not cross the lesion in the LAD. At that point with adjunctive use of guidewire I was able to advance initially 1.5 mm balloon and subsequently 2.0 balloon and then 3.0 balloon. Then I deployed 3.25 x 18 mm stent where the stent was positioned under fluoroscopy guidance and deployed under its nominal pressure. The following angiogram showed distal edge dissection which I decided to cover with another stent. I was able to advance 3.0 x 18 mm stent with overlap about 2 mm between the first and second stents. The second stent was deployed under 10 alecia for 20 seconds. Then the area of overlap was dilated using the stent balloon. The following angiogram showed good angiographic results but I decided to post-dilate the stented segment using 3.5 mm noncompliant balloon which was inflated under 18 alecia for 20 seconds. Final angiogram showed good angiographic results was HATTIE-3 flow in the LAD but there was pinched in the diagonal which was a second diagonal with a lesion appeared to be in the range of 60%. It has HATTIE 3 flow. Because we reached or maximum also contrast and because the patient was asymptomatic with resolving ST changes we decided to stop. This lesion would be addressed down the line if the patient remains symptomatic. CONCLUSION: Critical disease involving the mid LAD with extremely calcified and eccentric lesion Successful stenting of the mid LAD using 3.25 x 18 and 3.0 x 18 mm Xience DANNY with an excellent angiographic results. Intermediate lesion involving the RCA with a long tubular lesion POSTPROCEDURE MANAGEMENT: #1 dual antiplatelet therapy using aspirin and Effient for 12 month #2 aggressive cholesterol control #3 follow-up with the patient
[2022-01-10] MEDS ORDERED: SODIUM CHLORIDE 0.9% 1,000 ML in EMPTY BAG 1 BAG IV SCH (14:15)
--- NOTE | 2022-01-10 14:21 | P.PN ---
Subjective Progress Note Date: 01/10/22 This is a 61-year-old male patient, known history of CHF with a previous LV ejection fraction being in the order of 40% on echocardiogram that was done in January 2021. The patient also had a cardiac stress test revealing anteroseptal ischemia with an ejection fraction of 34%. Nevertheless, back then , he did not want to do any further treatment. He did not pursue any treatment. It is not pursue a cardiac catheterization. Over the past 1 week, the patient has been having worsening shortness of breath. This has been noted by the family. No chest pain. No angina. No palpitations. No sweating. No arm or neck pain. Early this morning, the patient became very short of breath and he arrived to the emergency department in significant respiratory distress. The patient was unresponsive at time of arrival. He was immediately intubated and placed on mechanical ventilator. His chest x-ray was consistent with pulmonary edema. The initial chest x-ray was consistent with pulmonary edema. EKG showed atrial flutter with rapid ventricular response and the patient had voltage criteria of LVH. . The proBNP level was 4017. Troponin initially was at 0.09 and subsequently came back at 1.5. The His systolic blood pressure was as high as 150-113 and later on it was also noted to be at 223/184. The patient was immediately intubated and placed on a mechanical ventilator and the patient was also started on diuretics. Post intubation blood gases showed a patient of 7.21 with a pCO2 of 67 pO2 of 63 and this was identified to percent and currently the patient is an assist-control mode at the rate of 16 with tidal volume of 500 and FiO2 of 60% with a PEEP of 5. At this point in time, the patient is sedated with propofol which is currently running at 25 mcg/kg per minute. Cardiac r hythm is sinus. The patient was started on Lasix 40 mg IV every 8 hours and the patient is producing excellent urine output. The patient is also on IV heparin. Cardiology is on the case. Echocardiogram is in progress. Patient was also started on Estrace 1 mg by mouth daily and statins in the form of Lipitor 40 mg by mouth daily. He is a chronic smoker. On 01/09/2022, I'm seeing the patient for a follow-up regarding acute hypoxic respiratory failure, acute pulmonary edema, acute congestion heart failure and acute non-ST segment elevation myocardial infarction. This morning, the patient is on propofol which is running at 35 mcg/kg per minute and the patient is adequately sedated for now. The patient is hemodynamically stable on no pressors. Troponin peaked at 4.8 as the patient suffered an acute non-ST segment elevation myocardial infarctions the patient remains on examination as pirin and IV heparin and metoprolol. Echocardiogram showed impaired LV function and there was systolic heart failure with an ejection fraction of 30-35%. The patient's follow-up chest x-ray from today showing prominent pulmonary edema and the patient remains intubated on mechanical ventilator. This morning he is an assist-control mode rate of 60 with tidal volume of 500 and FiO2 of 40% with a P EEP of 5. Blood gas showed a pH of 7.42 with a pCO2 of 51 and pO2 of 80. The white cell count 11.7 with a hemoglobin of 14.8 and the plated count of 213. Sodium is at 141 and his serum bicarbonate 31 with a potassium level of 3.7. BUN is 19 with a creatinine of 1.2. The patient has adequate urine output. Patient is on IV Lasix 40 mg every 8 hours and the patient is producing good urine output for now. No other significant events overnight. On 01/10/2022, I'm seeing the patient for a follow-up. The patient the patient was extubated yesterday without any major difficulties. This morning, the patient is calm and comfortable and the patient is currently on 2 L about 2 by nasal cannula. A chest x-ray still showing some mild interstitial edema and the patient has some ongoing contact lung bases bilaterally. The patient is to have any chest pain. The patient on no pressors for now. The patient is feeling well and is free of any chest pain. Suffered a acute non-ST segment elevation myocardial infarctions and the patient has also impaired LV function with an ejection fraction of 30-35%. The patient has no fever chills or night sweats. No mentation. Sodium level is at 141 with a potassium level of 3.6. BUN is at 36 with a creatinine of 1.1. Hemoglobin is at 14.5 and a white cell count is at 12.2. Platelet count is at 202. No nausea. Vomiting. No emesis. The patient is going to have a cardiac catheterization done. Objective - Vital Signs Vital signs: Vital Signs Temp 98.7 F 08/12/22 12:00 Pulse 70 01/10/22 12:00 Resp 20 01/10/22 12:00 BP 128/86 01/10/22 12:00 Pulse Ox 91 L 01/10/22 12:00 FiO2 40 01/09/22 11:16 Intake & Output 01/09/22 01/10/22 01/10/22 18:59 06:59 18:59 Intake Total 2681.369 1217.28 1450 Output Total 1495 1720 1060 Balance 1186.369 -502.72 390 Weight 93.4 kg Intake: IV 2396.307 207.28 1100 Heparin Sod,Pork in 0.45% 1950.08 177.28 NaCl 25,000 unit In 0.45 % NaCl 1 250ml.bag @ 10. 537 UNITS/KG/HR 10 mls/hr IV .Q24H [facility] Rx#: [id number] NS 360 30 400 propofoL 1,000 mg In 86.227 Empty Bag 1 bag @ 5 MCG/ KG/MIN 2.847 mls/hr IV . Q24H [facility] Rx#:[id number] Intake, IV Titration 285.062 250 Amount Heparin Sod,Pork in 0.45% 177.28 250 NaCl 25,000 unit In 0.45 % NaCl 1 250ml.bag @ 10. 537 UNITS/KG/HR 10 mls/hr IV .Q24H [facility] Rx#: [id number] propofoL 1,000 mg In 107.782 Empty Bag 1 bag @ 5 MCG/ KG/MIN 2.847 mls/hr IV . Q24H [facility] Rx#:[id number] Oral 760 350 Output: Gastric Drainage 20 Urine 1475 1720 1060 Other: Voiding Method Indwelling Catheter Indwelling Catheter Indwelling Catheter - Exam Calm and comfortable on 2 L of oxygen by nasal cannula Head exam was generally normal. There was no scleral icterus or corneal arcus. Mucous membranes were moist. Neck was supple and without jugular venous distension, thyromegaly, or carotid bruits. Carotids were easily palpable bilaterally. There was no adenopathy. Positive JVDs are noted and the patient has a orogastric and orotracheal tube are both being in good location. Lungs sounds are clear admission lung bases along with some crackles in lung bases bilaterally. Cardiac exam revealed the PMI to be normally situated and sized. The rhythm was regular and no extrasystoles were noted during several minutes of auscultation. The first and second heart sounds were normal and physiologic splitting of the second heart sound was noted. There were no murmurs, rubs, clicks, or gallops. Abdominal exam revealed normal bowel sounds. The abdomen was soft, non-tender, and without masses, organomegaly, or appreciable enlargement of the abdominal aorta. Examination of the extremities revealed easily palpable radial, femoral and pedal pulses. There was no cyanosis, clubbing or edema. Examination of the skin revealed no evidence of significant rashes, suspicious appearing nevi or other concerning lesions. Neurologically, the patient is awake and alert and the patient does not have any focal neurological deficit. Cranial nerves are essentially intact. - Labs CBC & Chem 7: 01/10/22 06:30 01/10/22 06:30 Labs: Abnormal Lab Results - Last 24 Hours (Table) 01/09/22 01/09/22 01/10/22 Range/Units 17:46 20:25 06:30 WBC (3.8-10.6) k/uL APTT 46.8 H (22.0-30.0) sec Carbon Dioxide (22-30) mmol/L BUN (9-20) mg/dL Glucose (74-99) mg/dL POC Glucose (mg/dL) 144 H 147 H (70-110) mg/dL 01/10/22 01/10/22 01/10/22 Range/Units 06:30 06:30 07:00 WBC 12.2 H (3.8-10.6) k/uL APTT (22.0-30.0) sec Carbon Dioxide 34 H (22-30) mmol/L BUN 36 H (9-20) mg/dL Glucose 159 H (74-99) mg/dL POC Glucose (mg/dL) 141 H (70-110) mg/dL 01/10/22 Range/Units 11:45 WBC (3.8-10.6) k/uL APTT (22.0-30.0) sec Carbon Dioxide (22-30) mmol/L BUN (9-20) mg/dL Glucose (74-99) mg/dL POC Glucose (mg/dL) 145 H (70-110) mg/dL Microbiology - Last 24 Hours (Table) 01/08/22 04:48 Gram Stain - Final Sputum Sputum Culture - Final Assessment and Plan Plan: Acute hypoxic respiratory failure secondary to pulmonary edema, extubated currently on 2 L of oxygen by nasal cannula Acute decompensated CHF, consistent with systolic heart failure as the patient is known to have some mild impairment of the LV function with an ejection fraction of 40-45% based on her present cardiac up from January 2021, repeat echocardiogram showed further impairment of LV function patient ejection frac tion is around 30-35% Acute non-ST segment elevation myocardial infarction, currently on IV heparin and aspirin and beta blockers. Troponin peaked at 4.8 Acute atrial flutter with RVR, improved and the patient's cardiac rhythm is sinus Hypertension with elevated blood pressure, improved Chronic smoker Plan Patient was extubated yesterday and currently on oxygen at 2 L Continue Lasix 40 mg by mouth twice a day IV heparin will be continued Cardiac catheterization today Metoprolol 25 mg by mouth twice a day Aldactone 25 mg by mouth daily Continue aspirin Continue high-dose statins Further recommendations based on results of the cardiac catheterization
[2022-01-10] MEDS: lisinopriL 5 MG TAB PO SCH ×2 (17:15→20:44)
[2022-01-10] MEDS: SPIRONOLACTONE 25 MG TAB PO SCH (17:15)
[2022-01-10 17:20] LABS: Glucose,Whole Blood 199 mg/dL (70-110)
[2022-01-10 20:25] LABS: Glucose,Whole Blood 152 mg/dL (70-110)
--- NOTE | 2022-01-11 04:32 | P.PN ---
Subjective Progress Note Date: 01/10/22 Patient is a 61-year-old male with a known history of coronary artery disease and abdominal myocardial perfusion imaging in January 2021, patient opted for medical management and echocardiogram showed ejection fraction 40% presents to ER with complaints of sudden onset of severe shortness of breath last night. Patient has been having worsening breathing status for the past 1 week. Patient was unresponsive at the time of arrival. He was immediately intubated and placed on mechanical ventilator. Chest x-ray showed diffuse pulmonary interstitial edema which could be acute pneumonia or acute heart failure. CT head and cervical spine showed spondylitic changes in the mid and lower cervical spine. No fracture. Negative CT scan of the brain. Ethmoid sinusitis. CT of the thoracic aorta is negative. There is pulmonary edema with small pleural effusions and bilateral pulmonary infiltrates and atelectasis. This could be congestive heart failure. EKG showed atrial flutter/tachycardia with rapid ventricle response. On admission patient was tachycardic. Blood pressure was 158/113 mmHg Laboratory test showed WBC 10.9 hemoglobin level of 16.6 platelets 267 INR 1.2 ABG showed pH 7.21 PCO2 67 PO2 363 Sodium 140 potassium 4.6 chloride 103 bicarb is 20 BUN 18 and creatinine 1.23 and blood sugar is 325 Lactic acid 5.4 magnesium 2.5, proBNP is 4070 Troponin 0.096, 01.560, 4.82 01/09/2022 Patient is seen and evaluated and follow-up continues to be the ICU with cardiology and pulmonary skin toggler following closely. Patient was intubated with weaning parameters within normal limits and just underwent successful extubation and is currently maintained on 3 L via nasal cannula maintaining oxygen saturation above 91%. Patient continues on IV Lasix along with IV heparin with cardiology following as well. Patient needs to have cardiac catheterization as he was hospitalized previously recommending this although patient wanted to continue with maximizing medical management. Patient does have a history of some noncompliance. Blood sugars were elevated on admission and recommend continue with Accu-Cheks before meals and at bedtime and sliding scale as needed. Follow up on hemoglobin A1c was 6.0 and will not initiate new medications at this time but continue to monitor with sliding scale and have patient follow-up in the outpatient setting. Patient denies any previous history of diabetes. Patient is afebrile and denies chest pain or palpitations. Patient is currently nothing by mouth per protocol status post extubation and continues to ask for food. 01/10/2022 Patient is seen this morning and continues to be in the ICU with cardiology and pulmonary following. Patient is continued on 2L Via NC and tolerating. Patient is continued on cardiac medications along with IV heparin and cardiology following and planning on cardiac catheterization. Patient is currently NPO for the procedure. Labs reviewed and kidney functions with some improvement. Patient has been transitioned to oral lasix and diuresing well. Will await cardiac report. Encouraged increased activity as tolerated. Patient denies chest pain or palpitations, patient is afebrile. Patient denies nausea or vomiting. Review of systems: Constitutional: No reports of fatigue, fever, or chills Cardiovascular: No reports of chest pain or palpitations Respiratory: reports of shortness of breath and occasional cough,with no worsening GI: No reports of nausea, vomiting, or diarrhea : No reports of dysuria or retention Neurovascular: reports of weakness All medications have been reviewed Active Medications Al Hydroxide/Mg Hydroxide (Mag Hydrox/Al Hydrox/Simeth 30 Ml Cup) 30 ml PO Q4HR PRN PRN Reason: Heartburn Albuterol/Ipratropium (Ipratropium-Albuterol 3 Ml Neb) 3 ml INHALATION RT-QID [facility] Last Admin: 01/10/22 19:34 Dose: 3 ml Alprazolam (Alprazolam 0.25 Mg Tab) 0.25 mg PO Q6HR PRN PRN Reason: Mild Anxiety Alprazolam (Alprazolam 0.5 Mg Tab) 0.5 mg PO Q6HR PRN PRN Reason: Moderate Anxiety Aspirin (Aspirin 81 Mg) 81 mg PO DAILY [facility] Last Admin: 01/10/22 08:02 Dose: 81 mg Atorvastatin Calcium (Atorvastatin 40 Mg Tab) 40 mg PO DAILY [facility] Last Admin: 01/10/22 08:02 Dose: 40 mg Atropine Sulfate (Atropine Sulfate 0.1 Mg/Ml 10ml Syringe) 0.5 mg IV ONCE PRN PRN Reason: Symptomatic Bradycardia Dextrose/Water (Dextrose 50% Syringe 50 Ml) 25 ml IVP PER PROTOCOL PRN; Protocol PRN Reason: Hypoglycemia Dextrose/Water (Dextrose 50% Syringe 50 Ml) 50 ml IVP PER PROTOCOL PRN; Protocol PRN Reason: Hypoglycemia Furosemide (Furosemide 40 Mg Tab) 40 mg PO BID@0900,1600 [facility] Last Admin: 01/10/22 17:15 Dose: 40 mg Heparin Sodium (Porcine) (Heparin Sodium 1,000 Un/Ml (10ml Vl)) 0 unit IV PER PROTOCOL PRN; Protocol PRN Reason: Low PTT Last Admin: 01/08/22 16:25 Dose: 2,370 unit Propofol 1,000 mg/ IV Solution 100 mls @ 2.847 mls/hr IV .Q24H [facility]; Protocol Last Titration: 01/09/22 11:00 Dose: 0 mcg/kg/min, 0 mls/hr Heparin Sodium/Sodium Chloride (25,000 unit/ Sodium Chloride) 250 mls @ 10 mls/hr IV .Q24H [facility]; Protocol Last Admin: 01/10/22 04:16 Dose: 12.537 units/kg/hr, 11.898 mls/hr Insulin Aspart (Insulin Aspart (Novolog) 100 Unit/Ml Vial) 0 unit SQ ACHS [facility]; Protocol Last Admin: 01/10/22 20:32 Dose: 1 unit Lisinopril (Lisinopril 5 Mg Tab) 5 mg PO BID [facility] Last Admin: 01/10/22 20:44 Dose: 5 mg Metoprolol Tartrate (Metoprolol Tartrate 25 Mg Tab) 25 mg PO BID [facility] Last Admin: 01/10/22 20:44 Dose: 25 mg Miscellaneous Information (Rx Info: Iv Contrast Was Given 1 Each Misc) 1 each MISCELLANE DAILY PRN PRN Reason: Per Protocol Stop: 01/12/22 14:02 Morphine Sulfate (Morphine Sulfate 4 Mg/Ml Syringe) 4 mg IV Q4HR PRN PRN Reason: Pain Scale 8 to 10 Naloxone HCl (Naloxone 0.4 Mg/Ml 1 Ml Vial) 0.2 mg IV Q2M PRN PRN Reason: Opioid Reversal Nitroglycerin (Nitroglycerin Sl Tabs 0.4 Mg Tab) 0.4 mg SUBLINGUAL Q5M PRN PRN Reason: Chest Pain Ondansetron HCl (Ondansetron 4 Mg/2 Ml Vial) 4 mg IVP Q6HR PRN PRN Reason: Nausea And Vomiting Pantoprazole Sodium (Pantoprazole 40 Mg/10 Ml Vial) 40 mg IV DAILY [facility] Last Admin: 01/10/22 08:02 Dose: 40 mg Prasugrel (Prasugrel 10 Mg Tab) 10 mg PO DAILY [facility]; Protocol Spironolactone (Spironolactone 25 Mg Tab) 25 mg PO DAILY [facility] Last Admin: 01/10/22 17:15 Dose: Not Given Zolpidem Tartrate (Zolpidem 5 Mg Tab) 5 mg PO HS PRN PRN Reason: Insomnia PHYSICAL EXAMINATION: Constitutional: Patient is awake alert and oriented 3 maintained on 2 L via nasal cannula. Well developed, well nourished, obese HEENT: Normocephalic. Neck is supple. Pupils reactive. Nostrils clear. Oral cavity is moist. Neck reveals no JVD, carotid bruits, or thyromegaly. CHEST EXAMINATION: Trachea is central. Symmetrical expansion. Bibasilar diminished sounds with some faint crackles at the bases. No wheezing. CARDIAC: S1, S2 muffled ABDOMEN: Soft. Bowel sounds present. Nontender. No organomegaly. No abdominal bruits. Extremities: reveal trace pedal edema. No clubbing or cyanosis Neurologically patient is awake, calm, cooperative, No gross focal deficits noted Skin: No rash or skin lesions. Psychiatric: Cooperative, nonsuicidal Musculoskeletal: No joint swelling or deformity. Assessment: Acute hypoxic respiratory failure secondary to CHF exacerbation. Requiring mechanical ventilation, patient was extubated on 01/09/2022 Acute on chronic CHF with systolic dysfunction ejection fraction 40% Acute non-ST elevated [place] History of abnormal MPI in January 2021. Patient opted for medical management at that time. New onset atrial flutter with rapid ventricular rate. Correlate for sinus node. Hyperglycemia. Possible new onset pre-diabetes. Hemoglobin A1c is 6.0 Uncontrolled hypertension History of smoking Medication noncompliance GI and DVT prophylaxis. Full code Plan: Recommend to continue with telemetry monitoring and ICU management at this time as patient was recently extubated yesterday and patient continues to require oxygen via nasal cannula at 2 L and does not normally wear any oxygen at home. Patient is transitioned to oral Lasix along with IV heparin and will continue. Cardiology following and patient will undergo cardiac catheterization today. Await report. Blood sugars were elevated and recommend continue with Accu- Cheks before meals and at bedtime and sliding scale. Patient denies history of diabetes may be a component of new onset prediabetes is hemoglobin A1c is found to be 6.0. We'll continue with sliding scale for now and have patient follow-up in the outpatient setting with primary care provider once stabilized. Recommend chest x-ray in the a.m. and repeat labs. Recommend to continue monitoring intake and output closely Recommend continue telemetry monitoring Follow up on cardiac cath report Due to multiple complex medical issues, prognosis is guarded The impression and plan of care has been dictated as a scribe by Harper Frank, Nurse Practitioner as directed. Dr. Axel MD I have performed a history and examination and MDM of this patient, discussed the same with the dictator, and agree with the dictator's assessment and plan as written ,documented as a scribe. Based on total visit time, I have performed more than 50% of the visit. Objective - Vital Signs Vital signs: Vital Signs Temp 98.8 F 01/10/22 04:00 Pulse 98 01/10/22 07:42 Resp 12 01/10/22 07:00 BP 131/89 01/10/22 07:00 Pulse Ox 92 L 01/10/22 07:31 FiO2 40 01/09/22 11:16 Intake & Output 01/09/22 01/10/22 01/10/22 18:59 06:59 18:59 Intake Total 2681.369 1217.28 Output Total 1495 1720 60 Balance 1186.369 -502.72 -60 Weight 93.4 kg Intake: IV 2396.307 207.28 Heparin Sod,Pork in 0.45% 1950.08 177.28 NaCl 25,000 unit In 0.45 % NaCl 1 250ml.bag @ 10. 537 UNITS/KG/HR 10 mls/hr IV .Q24H [facility] Rx#: [id number] NS 360 30 propofoL 1,000 mg In 86.227 Empty Bag 1 bag @ 5 MCG/ KG/MIN 2.847 mls/hr IV . Q24H [facility] Rx#:[id number] Intake, IV Titration 285.062 250 Amount Heparin Sod,Pork in 0.45% 177.28 250 NaCl 25,000 unit In 0.45 % NaCl 1 250ml.bag @ 10. 537 UNITS/KG/HR 10 mls/hr IV .Q24H [facility] Rx#: [id number] propofoL 1,000 mg In 107.782 Empty Bag 1 bag @ 5 MCG/ KG/MIN 2.847 mls/hr IV . Q24H [facility] Rx#:[id number] Oral 760 Output: Gastric Drainage 20 Urine 1475 1720 60 Other: Voiding Method Indwelling Catheter Indwelling Catheter - Labs CBC & Chem 7: 01/10/22 06:30 01/10/22 06:30 Labs: Abnormal Lab Results - Last 24 Hours (Table) 01/09/22 01/09/22 01/09/22 Range/Units 11:21 17:46 20:25 WBC (3.8-10.6) k/uL APTT (22.0-30.0) sec Carbon Dioxide (22-30) mmol/L BUN (9-20) mg/dL Glucose (74-99) mg/dL POC Glucose (mg/dL) 152 H 144 H 147 H (70-110) mg/dL 01/10/22 01/10/22 01/10/22 Range/Units 06:30 06:30 06:30 WBC 12.2 H (3.8-10.6) k/uL APTT 46.8 H (22.0-30.0) sec Carbon Dioxide 34 H (22-30) mmol/L BUN 36 H (9-20) mg/dL Glucose 159 H (74-99) mg/dL POC Glucose (mg/dL) (70-110) mg/dL 01/10/22 Range/Units 07:00 WBC (3.8-10.6) k/uL APTT (22.0-30.0) sec Carbon Dioxide (22-30) mmol/L BUN (9-20) mg/dL Glucose (74-99) mg/dL POC Glucose (mg/dL) 141 H (70-110) mg/dL Microbiology - Last 24 Hours (Table) 01/08/22 04:48 Gram Stain - Preliminary Sputum Sputum Culture - Preliminary
[2022-01-11 06:34] LABS: African American GFR (CKD) >90 (>60 ml/min/1.73 sqM); Anion Gap 5 mmol/L; Blood Urea Nitrogen 32 mg/dL (9-20); Calcium 8.5 mg/dL (8.4-10.2); Carbon Dioxide 37 mmol/L (22-30); Chloride 99 mmol/L (98-107); Glucose 115 mg/dL (74-99); Non-African American GFR(CKD) 78 (>60 ml/min/1.73 sqM); Potassium 4.1 mmol/L (3.5-5.1); Sodium 141 mmol/L (137-145)
[2022-01-11 06:56] LABS: Glucose,Whole Blood 121 mg/dL (70-110)
[2022-01-11] MEDS: INSULIN ASPART (NovoLOG) 100 UNIT/ML VIAL SQ SCH ×4 (06:57→20:48)
[2022-01-11] MEDS: IPRATROPIUM-ALBUTEROL 3 ML NEB INHALATION SCH ×4 (07:34→20:12)
--- NOTE | 2022-01-11 07:46 | XR ---
EXAMINATION TYPE: XR chest 1V portable DATE OF EXAM: 01/11/2022 Comparison: 01/10/2022 Clinical History: 61-year-old male CHF Findings: Heart borderline enlarged. Mild interstitial densities remain. Mild patchy retrocardiac opacity also remains. Patchy peripheral left basilar opacity shows some improvement. Impression: Similar COPD and pulmonary vascular congestion. Some patchy atelectasis or mild patchy pulmonary trudy a at the left base is similar to slightly improving.
--- NOTE | 2022-01-11 09:02 | P.PN ---
Subjective Progress Note Date: 01/11/22 PROGRESS NOTE The patient is a 61-year-old male who presented with acute respiratory distress, requiring mechanical ventilation. He remains intubated but following commands. He is in sinus mechanism. He is on the low dose of norepinephrine. His urine output is good. He has no evidence of malignant arrhythmia. His echocardiogram showed an ejection fraction of 30-35% with no mention of segmental wall motion. No significant valvular disease was noted. He has a prior history of cardiomyopathy with abnormal stress test a year ago. He has been seen by Dr. Whatley in the past and cardiac catheterization was recommended. His troponin peak was 4.8 January 10: The patient is extubated, feels well this morning, his breathing is better, he denies any chest discomfort, dizziness or palpitations. He continues to be in sinus mechanism. Hemodynamically he stable with good urinary output. He has no evidence of atrial fibrillation or ventricular tachycardia. He has evidence of cardiomyopathy on his echocardiogram. January 11: The patient underwent cardiac catheterization yesterday and was found to have severe obstructive disease in the mid LAD, underwent stenting of that vessel by Dr. Whatley. He was also found to have moderate severe disease in the RCA. He feels better today. He denies any chest discomfort, dizziness or palpitations. He is in sinus mechanism. He denies any nausea or vomiting. Hemodynamically he is stable. Medications: Aspirin once a day, Lipitor 40 mg daily, IV heparin, metoprolol tartrate 25 mg twice a day, Lasix 40 mg IV every 8 hours, lisinopril 5 mg twice a day, Effient 10 mg daily, Aldactone 25 mg daily PHYSICAL EXAMINATION: Blood pressure 136/80 heart rate 70, . LUNGS: Scattered rhonchi HEART: Regular rate and rhythm, S1, S2. No S3. systolic systolic ejection murmur ABDOMEN: Soft, nontender, no organomegaly EXTREMETIES: No edema, right radial pulse intact LAB: BUN 32, creatinine 1.04, potassium 4.1 IMPRESSION: 1. Respiratory failure with pulmonary edema, resolved 2. Non-STEMI, status post stenting of the mid LAD 3. Severe cardiomyopathy, 4. History of chronic tobacco use 5. History of hypertension 6. Moderate to significant disease in the RCA PLAN: 1. Continue present therapy 2. Transfer to telemetry 3. Increase physical activity 4. If stable probable discharge in the next 24-48 hours, the patient will be further evaluated as an outpatient for the need to undergo revascularization of his RCA. Objective - Vital Signs Vital signs: Vital Signs Temp 98.0 F 01/11/22 04:00 Pulse 77 01/11/22 07:46 Resp 29 H 01/11/22 07:00 BP 136/85 01/11/22 07:00 Pulse Ox 87 L 01/11/22 07:00 FiO2 40 01/09/22 11:16 Intake & Output 01/10/22 01/11/22 01/11/22 18:59 06:59 18:59 Intake Total 1750 675 Output Total 1700 1000 0 Balance 50 -325 0 Weight 91.6 kg Intake: IV 1400 675 NS 700 675 Oral 350 Output: Urine 1700 1000 0 Other: Voiding Method Indwelling Catheter # Voids 0 - Labs CBC & Chem 7: 01/10/22 06:30 01/11/22 06:07 Labs: Abnormal Lab Results - Last 24 Hours (Table) 01/10/22 01/10/22 01/10/22 Range/Units 11:45 17:18 20:24 Carbon Dioxide (22-30) mmol/L BUN (9-20) mg/dL Glucose (74-99) mg/dL POC Glucose (mg/dL) 145 H 199 H 152 H (70-110) mg/dL 01/11/22 01/11/22 Range/Units 06:07 06:54 Carbon Dioxide 37 H (22-30) mmol/L BUN 32 H (9-20) mg/dL Glucose 115 H (74-99) mg/dL POC Glucose (mg/dL) 121 H (70-110) mg/dL Microbiology - Last 24 Hours (Table) 01/08/22 04:48 Gram Stain - Final Sputum Sputum Culture - Final
[2022-01-11] MEDS: HEPARIN SOD,PORK IN 0.45% NACL 25,000 UNIT in 0.45% NACL 1 250ML.BAG IV SCH (09:23)
[2022-01-11] MEDS: ASPIRIN 81 MG PO SCH (10:23)
[2022-01-11] MEDS: lisinopriL 5 MG TAB PO SCH ×2 (10:23→21:03)
[2022-01-11] MEDS: FUROSEMIDE 40 MG TAB PO SCH ×2 (10:23→16:45)
[2022-01-11] MEDS: PANTOPRAZOLE 40 MG/10 ML VIAL IV SCH (10:23)
[2022-01-11] MEDS: PRASUGREL 10 MG TAB PO SCH (10:23)
[2022-01-11] MEDS: ATORVASTATIN 40 MG TAB PO SCH (10:23)
[2022-01-11] MEDS: SPIRONOLACTONE 25 MG TAB PO SCH (10:23)
[2022-01-11 11:22] VITALS: BMI 33.5
--- NOTE | 2022-01-11 11:31 | P.PN ---
Subjective Progress Note Date: 01/11/22 This is a 61-year-old male patient, known history of CHF with a previous LV ejection fraction being in the order of 40% on echocardiogram that was done in January 2021. The patient also had a cardiac stress test revealing anteroseptal ischemia with an ejection fraction of 34%. Nevertheless, back then , he did not want to do any further treatment. He did not pursue any treatment. It is not pursue a cardiac catheterization. Over the past 1 week, the patient has been having worsening shortness of breath. This has been noted by the family. No chest pain. No angina. No palpitations. No sweating. No arm or neck pain. Early this morning, the patient became very short of breath and he arrived to the emergency department in significant respiratory distress. The patient was unresponsive at time of arrival. He was immediately intubated and placed on mechanical ventilator. His chest x-ray was consistent with pulmonary edema. The initial chest x-ray was consistent with pulmonary edema. EKG showed atrial flutter with rapid ventricular response and the patient had voltage criteria of LVH. . The proBNP level was 4017. Troponin initially was at 0.09 and subsequently came back at 1.5. The His systolic blood pressure was as high as 150-113 and later on it was also noted to be at 223/184. The patient was immediately intubated and placed on a mechanical ventilator and the patient was also started on diuretics. Post intubation blood gases showed a patient of 7.21 with a pCO2 of 67 pO2 of 63 and this was identified to percent and currently the patient is an assist-control mode at the rate of 16 with tidal volume of 500 and FiO2 of 60% with a PEEP of 5. At this point in time, the patient is sedated with propofol which is currently running at 25 mcg/kg per minute. Cardiac r hythm is sinus. The patient was started on Lasix 40 mg IV every 8 hours and the patient is producing excellent urine output. The patient is also on IV heparin. Cardiology is on the case. Echocardiogram is in progress. Patient was also started on Estrace 1 mg by mouth daily and statins in the form of Lipitor 40 mg by mouth daily. He is a chronic smoker. On 01/09/2022, I'm seeing the patient for a follow-up regarding acute hypoxic respiratory failure, acute pulmonary edema, acute congestion heart failure and acute non-ST segment elevation myocardial infarction. This morning, the patient is on propofol which is running at 35 mcg/kg per minute and the patient is adequately sedated for now. The patient is hemodynamically stable on no pressors. Troponin peaked at 4.8 as the patient suffered an acute non-ST segment elevation myocardial infarctions the patient remains on examination as pirin and IV heparin and metoprolol. Echocardiogram showed impaired LV function and there was systolic heart failure with an ejection fraction of 30-35%. The patient's follow-up chest x-ray from today showing prominent pulmonary edema and the patient remains intubated on mechanical ventilator. This morning he is an assist-control mode rate of 60 with tidal volume of 500 and FiO2 of 40% with a P EEP of 5. Blood gas showed a pH of 7.42 with a pCO2 of 51 and pO2 of 80. The white cell count 11.7 with a hemoglobin of 14.8 and the plated count of 213. Sodium is at 141 and his serum bicarbonate 31 with a potassium level of 3.7. BUN is 19 with a creatinine of 1.2. The patient has adequate urine output. Patient is on IV Lasix 40 mg every 8 hours and the patient is producing good urine output for now. No other significant events overnight. On 01/10/2022, I'm seeing the patient for a follow-up. The patient the patient was extubated yesterday without any major difficulties. This morning, the patient is calm and comfortable and the patient is currently on 2 L about 2 by nasal cannula. A chest x-ray still showing some mild interstitial edema and the patient has some ongoing contact lung bases bilaterally. The patient is to have any chest pain. The patient on no pressors for now. The patient is feeling well and is free of any chest pain. Suffered a acute non-ST segment elevation myocardial infarctions and the patient has also impaired LV function with an ejection fraction of 30-35%. The patient has no fever chills or night sweats. No mentation. Sodium level is at 141 with a potassium level of 3.6. BUN is at 36 with a creatinine of 1.1. Hemoglobin is at 14.5 and a white cell count is at 12.2. Platelet count is at 202. No nausea. Vomiting. No emesis. The patient is going to have a cardiac catheterization done. 01/11/2022, patient is being seen for a follow-up. Resting comfortably in bed. No chest pain. Post cardiac catheterization and insertion of 2 stents in the LAD. No cardiac arrhythmias. Currently on aspirin and Effient. The patient is also on metoprolol 25 mg by mouth twice a day. He is on room air oxygen. When he sleeps, he desaturated to 88%. When awake, pulse ox is above 90%. No fever. No chills. Hemodynamically stable. No chest pain. Blood work from today shows a BUN of 32 with a creatinine of 1.04 and sodium level is at 141. Surgical sites at the level of the radial artery on the right is intact and stable for now. Objective - Vital Signs Vital signs: Vital Signs Temp 98.0 F 01/11/22 04:00 Pulse 77 01/11/22 07:46 Resp 29 H 01/11/22 07:00 BP 136/85 01/11/22 07:00 Pulse Ox 87 L 01/11/22 07:00 FiO2 40 01/09/22 11:16 Intake & Output 01/10/22 01/11/22 01/11/22 18:59 06:59 18:59 Intake Total 1750 675 Output Total 1700 1000 0 Balance 50 -325 0 Weight 91.6 kg 91.6 kg Intake: IV 1400 675 NS 700 675 Oral 350 Output: Urine 1700 1000 0 Other: Voiding Method Indwelling Catheter # Voids 0 - Exam Calm and comfortable on room air oxygen Head exam was generally normal. There was no scleral icterus or corneal arcus. Mucous membranes were moist. Neck was supple and without jugular venous distension, thyromegaly, or carotid bruits. Carotids were easily palpable bilaterally. There was no adenopathy. Positive JVDs are noted and the patient has a orogastric and orotracheal tube are both being in good location. Lungs sounds are clear admission lung bases along with some crackles in lung bases bilaterally. Cardiac exam revealed the PMI to be normally situated and sized. The rhythm was regular and no extrasystoles were noted during several minutes of auscultation. The first and second heart sounds were normal and physiologic splitting of the second heart sound was noted. There were no murmurs, rubs, clicks, or gallops. Abdominal exam revealed normal bowel sounds. The abdomen was soft, non-tender, and without masses, organomegaly, or appreciable enlargement of the abdominal aorta. Examination of the extremities revealed easily palpable radial, femoral and pedal pulses. There was no cyanosis, clubbing or edema. Examination of the skin revealed no evidence of significant rashes, suspicious appearing nevi or other concerning lesions. Neurologically, the patient is awake and alert and the patient does not have any focal neurological deficit. Cranial nerves are essentially intact. - Labs CBC & Chem 7: 01/10/22 06:30 01/11/22 06:07 Labs: Abnormal Lab Results - Last 24 Hours (Table) 01/10/22 01/10/22 01/10/22 Range/Units 11:45 17:18 20:24 Carbon Dioxide (22-30) mmol/L BUN (9-20) mg/dL Glucose (74-99) mg/dL POC Glucose (mg/dL) 145 H 199 H 152 H (70-110) mg/dL 01/11/22 01/11/22 Range/Units 06:07 06:54 Carbon Dioxide 37 H (22-30) mmol/L BUN 32 H (9-20) mg/dL Glucose 115 H (74-99) mg/dL POC Glucose (mg/dL) 121 H (70-110) mg/dL Microbiology - Last 24 Hours (Table) 01/08/22 04:48 Gram Stain - Final Sputum Sputum Culture - Final Assessment and Plan Plan: Acute hypoxic respiratory failure secondary to pulmonary edema, currently on room air oxygen Acute decompensated CHF, consistent with systolic heart failure as the patient is known to have some mild impairment of the LV function with an ejection fraction of 40-45% based on her present cardiac up from January 2021, repeat echocardiogram showed further impairment of LV function patient ejection fraction is around 30-35% Coronary artery disease Acute non-ST segment elevation myocardial infarction, currently on IV heparin and aspirin and beta blockers. Troponin peaked at 4.8, post cardiac catheterization and successful stenting of the mid LAD 2 with good results Acute atrial flutter with RVR, improved and the patient's cardiac rhythm is sinus Hypertension with elevated blood pressure, improved Chronic smoker Plan Continue using incentive spirometer Continue aspirin and Effient Monitor the cardiac rhythm Metoprolol 25 mg by mouth twice a day Aldactone 25 mg by mouth daily Continue aspirin Continue high-dose statins Transfer this patient out of the intensive care unit
[2022-01-11 11:52] LABS: Glucose,Whole Blood 105 mg/dL (70-110)
[2022-01-11] MEDS: METOPROLOL TARTRATE 25 MG TAB PO SCH ×3 (11:53→21:04)
[2022-01-11 16:43] LABS: Glucose,Whole Blood 104 mg/dL (70-110)
[2022-01-11 20:45] LABS: Glucose,Whole Blood 132 mg/dL (70-110)
[2022-01-12 06:26] LABS: Glucose,Whole Blood 114 mg/dL (70-110)
[2022-01-12] MEDS: INSULIN ASPART (NovoLOG) 100 UNIT/ML VIAL SQ SCH ×2 (06:33→12:29)
[2022-01-12 07:04] LABS: African American GFR (CKD) >90 (>60 ml/min/1.73 sqM); Anion Gap 8 mmol/L; Blood Urea Nitrogen 25 mg/dL (9-20); Calcium 8.4 mg/dL (8.4-10.2); Carbon Dioxide 34 mmol/L (22-30); Chloride 97 mmol/L (98-107); Glucose 101 mg/dL (74-99); Non-African American GFR(CKD) 82 (>60 ml/min/1.73 sqM); Potassium 3.6 mmol/L (3.5-5.1); Sodium 139 mmol/L (137-145)
[2022-01-12] MEDS: IPRATROPIUM-ALBUTEROL 3 ML NEB INHALATION SCH ×4 (07:38→20:40)
[2022-01-12] MEDS: HEPARIN SOD,PORK IN 0.45% NACL 25,000 UNIT in 0.45% NACL 1 250ML.BAG IV SCH (08:24)
[2022-01-12] MEDS: PANTOPRAZOLE 40 MG/10 ML VIAL IV SCH (08:44)
[2022-01-12] MEDS: SPIRONOLACTONE 25 MG TAB PO SCH (08:45)
[2022-01-12] MEDS: ASPIRIN 81 MG PO SCH (08:45)
[2022-01-12] MEDS: FUROSEMIDE 40 MG TAB PO SCH ×2 (08:45→16:18)
[2022-01-12] MEDS: PRASUGREL 10 MG TAB PO SCH (08:45)
[2022-01-12] MEDS: METOPROLOL TARTRATE 12.5 MG TAB PO SCH ×2 (08:45→20:03)
[2022-01-12] MEDS: ATORVASTATIN 40 MG TAB PO SCH (08:45)
[2022-01-12] MEDS: lisinopriL 5 MG TAB PO SCH ×2 (08:45→20:03)
--- NOTE | 2022-01-12 09:03 | XR ---
EXAMINATION TYPE: XR chest 1V portable DATE OF EXAM: 01/12/2022 Comparison: 01/11/2022 Clinical History: 61-year-old male low grade fever Findings: Heart upper limits of normal in size. Aorta within normal limits. Diffuse interstitial density persis ts. Some minimal patchy density remains at the left base. No janki consolidation or pleural effusion. Impression: Similar interstitial density could reflect residual mild pulmonary vascular congestion. Given the pat ient's low-grade fever, correlate to exclude bronchitis or atypical ammonia. Some patchy atelectasis or mild patchy pulmonary edema and the left base is also unchanged.
--- NOTE | 2022-01-12 09:53 | P.PN ---
Subjective Progress Note Date: 01/12/22 PROGRESS NOTE The patient is a 61-year-old male who presented with acute respiratory distress, requiring mechanical ventilation. He remains intubated but following commands. He is in sinus mechanism. He is on the low dose of norepinephrine. His urine output is good. He has no evidence of malignant arrhythmia. His echocardiogram showed an ejection fraction of 30-35% with no mention of segmental wall motion. No significant valvular disease was noted. He has a prior history of cardiomyopathy with abnormal stress test a year ago. He has been seen by Dr. Whatley in the past and cardiac catheterization was recommended. His troponin peak was 4.8 January 10: The patient is extubated, feels well this morning, his breathing is better, he denies any chest discomfort, dizziness or palpitations. He continues to be in sinus mechanism. Hemodynamically he stable with good urinary output. He has no evidence of atrial fibrillation or ventricular tachycardia. He has evidence of cardiomyopathy on his echocardiogram. January 11: The patient underwent cardiac catheterization yesterday and was found to have severe obstructive disease in the mid LAD, underwent stenting of that vessel by Dr. Whatley. He was also found to have moderate severe disease in the RCA. He feels better today. He denies any chest discomfort, dizziness or palpitations. He is in sinus mechanism. He denies any nausea or vomiting. Hemodynamically he is stable. January 12: The patient is feeling well this morning, ambulating in the room without difficulties. He is complaining of discomfort in the site of his venous access in the right brachial area. He has mild redness. He denies any chest discomfort, dizziness or palpitations. He continues to be in sinus mechanism. He is hemodynamically stable. Medications: Aspirin once a day, Lipitor 40 mg daily, IV heparin, metoprolol tartrate 12.5 mg twice a day, Lasix 40 by mouth twice a day, lisinopril 5 mg twice a day, Effient 10 mg daily, Aldactone 25 mg daily PHYSICAL EXAMINATION: Blood pressure 136/80 heart rate 70, . LUNGS: Scattered rhonchi HEART: Regular rate and rhythm, S1, S2. No S3. systolic systolic ejection murmur ABDOMEN: Soft, nontender, no organomegaly EXTREMETIES: No edema, right brachial venous axis redness and tenderness LAB: BUN 25, creatinine 1, potassium 3.6 IMPRESSION: 1. Respiratory failure with pulmonary edema, resolved 2. Non-STEMI, status post stenting of the mid LAD 3. Severe cardiomyopathy, 4. History of chronic tobacco use 5. History of hypertension 6. Moderate to significant disease in the RCA 7. Cellulitis of right brachial vein axis PLAN: 1. Continue present therapy 2. Transfer to telemetry 3. Increase physical activity 4. Add antibiotics 5. If stable probable discharge home tomorrow to be evaluated as an outpatient for RCA intervention. Objective - Vital Signs Vital signs: Vital Signs Temp 98.4 F 01/12/22 08:00 Pulse 73 01/12/22 08:00 Resp 18 01/12/22 08:00 BP 146/96 01/12/22 08:00 Pulse Ox 92 L 01/12/22 08:00 FiO2 40 01/09/22 11:16 Intake & Output 01/11/22 01/12/22 01/12/22 18:59 06:59 18:59 Intake Total 840 360 Output Total 0 Balance 840 360 Weight 91.6 kg 91.2 kg Intake: Oral 840 360 Output: Urine 0 Other: Voiding Method Toilet Toilet # Voids 1 8 # Bowel Movements 1 - Labs CBC & Chem 7: 01/10/22 06:30 01/12/22 06:30 Labs: Abnormal Lab Results - Last 24 Hours (Table) 01/11/22 01/12/22 01/12/22 Range/Units 20:44 06:24 06:30 Chloride 97 L (98-107) mmol/L Carbon Dioxide 34 H (22-30) mmol/L BUN 25 H (9-20) mg/dL Glucose 101 H (74-99) mg/dL POC Glucose (mg/dL) 132 H 114 H (70-110) mg/dL
[2022-01-12] MEDS: CEPHALEXIN 500 MG CAP PO SCH ×2 (10:11→20:03)
--- NOTE | 2022-01-12 11:09 | P.PN ---
Subjective Progress Note Date: 01/12/22 This is a 61-year-old male patient, known history of CHF with a previous LV ejection fraction being in the order of 40% on echocardiogram that was done in January 2021. The patient also had a cardiac stress test revealing anteroseptal ischemia with an ejection fraction of 34%. Nevertheless, back then , he did not want to do any further treatment. He did not pursue any treatment. It is not pursue a cardiac catheterization. Over the past 1 week, the patient has been having worsening shortness of breath. This has been noted by the family. No chest pain. No angina. No palpitations. No sweating. No arm or neck pain. Early this morning, the patient became very short of breath and he arrived to the emergency department in significant respiratory distress. The patient was unresponsive at time of arrival. He was immediately intubated and placed on mechanical ventilator. His chest x-ray was consistent with pulmonary edema. The initial chest x-ray was consistent with pulmonary edema. EKG showed atrial flutter with rapid ventricular response and the patient had voltage criteria of LVH. . The proBNP level was 4017. Troponin initially was at 0.09 and subsequently came back at 1.5. The His systolic blood pressure was as high as 150-113 and later on it was also noted to be at 223/184. The patient was immediately intubated and placed on a mechanical ventilator and the patient was also started on diuretics. Post intubation blood gases showed a patient of 7.21 with a pCO2 of 67 pO2 of 63 and this was identified to percent and currently the patient is an assist-control mode at the rate of 16 with tidal volume of 500 and FiO2 of 60% with a PEEP of 5. At this point in time, the patient is sedated with propofol which is currently running at 25 mcg/kg per minute. Cardiac r hythm is sinus. The patient was started on Lasix 40 mg IV every 8 hours and the patient is producing excellent urine output. The patient is also on IV heparin. Cardiology is on the case. Echocardiogram is in progress. Patient was also started on Estrace 1 mg by mouth daily and statins in the form of Lipitor 40 mg by mouth daily. He is a chronic smoker. On 01/09/2022, I'm seeing the patient for a follow-up regarding acute hypoxic respiratory failure, acute pulmonary edema, acute congestion heart failure and acute non-ST segment elevation myocardial infarction. This morning, the patient is on propofol which is running at 35 mcg/kg per minute and the patient is adequately sedated for now. The patient is hemodynamically stable on no pressors. Troponin peaked at 4.8 as the patient suffered an acute non-ST segment elevation myocardial infarctions the patient remains on examination as pirin and IV heparin and metoprolol. Echocardiogram showed impaired LV function and there was systolic heart failure with an ejection fraction of 30-35%. The patient's follow-up chest x-ray from today showing prominent pulmonary edema and the patient remains intubated on mechanical ventilator. This morning he is an assist-control mode rate of 60 with tidal volume of 500 and FiO2 of 40% with a P EEP of 5. Blood gas showed a pH of 7.42 with a pCO2 of 51 and pO2 of 80. The white cell count 11.7 with a hemoglobin of 14.8 and the plated count of 213. Sodium is at 141 and his serum bicarbonate 31 with a potassium level of 3.7. BUN is 19 with a creatinine of 1.2. The patient has adequate urine output. Patient is on IV Lasix 40 mg every 8 hours and the patient is producing good urine output for now. No other significant events overnight. On 01/10/2022, I'm seeing the patient for a follow-up. The patient the patient was extubated yesterday without any major difficulties. This morning, the patient is calm and comfortable and the patient is currently on 2 L about 2 by nasal cannula. A chest x-ray still showing some mild interstitial edema and the patient has some ongoing contact lung bases bilaterally. The patient is to have any chest pain. The patient on no pressors for now. The patient is feeling well and is free of any chest pain. Suffered a acute non-ST segment elevation myocardial infarctions and the patient has also impaired LV function with an ejection fraction of 30-35%. The patient has no fever chills or night sweats. No mentation. Sodium level is at 141 with a potassium level of 3.6. BUN is at 36 with a creatinine of 1.1. Hemoglobin is at 14.5 and a white cell count is at 12.2. Platelet count is at 202. No nausea. Vomiting. No emesis. The patient is going to have a cardiac catheterization done. 01/11/2022, patient is being seen for a follow-up. Resting comfortably in bed. No chest pain. Post cardiac catheterization and insertion of 2 stents in the LAD. No cardiac arrhythmias. Currently on aspirin and Effient. The patient is also on metoprolol 25 mg by mouth twice a day. He is on room air oxygen. When he sleeps, he desaturated to 88%. When awake, pulse ox is above 90%. No fever. No chills. Hemodynamically stable. No chest pain. Blood work from today shows a BUN of 32 with a creatinine of 1.04 and sodium level is at 141. Surgical sites at the level of the radial artery on the right is intact and stable for now. 01/12/2022, the patient is awake and alert and the patient has no specific complaints. He is free of any chest pain. Hemodynamically stable. He has developed some cellulitis of the right upper extremity at the site of IV line insertion. He is radial artery pulses adequate. No hematoma. The patient is currently on a combination of aspirin and Effient. The patient has also been on metoprolol 12.5 mg twice a day. He is on Aldactone. Sleeping well. Ambulating. Cardiac rhythm is sinus. Blood work is also stable. The patient has a BUN of 25 and a creatinine of 1.0 with a sodium level of 139 Objective - Vital Signs Vital signs: Vital Signs Temp 98.4 F 01/12/22 08:00 Pulse 73 01/12/22 08:00 Resp 18 01/12/22 08:00 BP 146/96 01/12/22 08:00 Pulse Ox 92 L 01/12/22 08:00 FiO2 40 01/09/22 11:16 Intake & Output 01/11/22 01/12/22 01/12/22 18:59 06:59 18:59 Intake Total 840 360 Output Total 0 Balance 840 360 Weight 91.6 kg 91.2 kg Intake: Oral 840 360 Output: Urine 0 Other: Voiding Method Toilet Toilet # Voids 1 8 # Bowel Movements 1 - Exam Calm and comfortable on room air oxygen Head exam was generally normal. There was no scleral icterus or corneal arcus. Mucous membranes were moist. Neck was supple and without jugular venous distension, thyromegaly, or carotid bruits. Carotids were easily palpable bilaterally. There was no adenopathy. Positive JVDs are noted and the patient has a orogastric and orotracheal tube are both being in good location. Lungs sounds are clear admission lung bases along with some crackles in lung bases bilaterally. Cardiac exam revealed the PMI to be normally situated and sized. The rhythm was regular and no extrasystoles were noted during several minutes of auscultation. The first and second heart sounds were normal and physiologic splitting of the second heart sound was noted. There were no murmurs, rubs, clicks, or gallops. Abdominal exam revealed normal bowel sounds. The abdomen was soft, non-tender, and without masses, organomegaly, or appreciable enlargement of the abdominal aorta. Examination of the extremities revealed easily palpable radial, femoral and pedal pulses. There was no cyanosis, clubbing or edema. Examination of the skin revealed no evidence of significant rashes, suspicious appearing nevi or other concerning lesions. Neurologically, the patient is awake and alert and the patient does not have any focal neurological deficit. Cranial nerves are essentially intact. - Labs CBC & Chem 7: 01/10/22 06:30 01/12/22 06:30 Labs: Abnormal Lab Results - Last 24 Hours (Table) 01/11/22 01/12/22 01/12/22 Range/Units 20:44 06:24 06:30 Chloride 97 L (98-107) mmol/L Carbon Dioxide 34 H (22-30) mmol/L BUN 25 H (9-20) mg/dL Glucose 101 H (74-99) mg/dL POC Glucose (mg/dL) 132 H 114 H (70-110) mg/dL Assessment and Plan Plan: Acute hypoxic respiratory failure secondary to pulmonary edema, currently on room air oxygen Acute decompensated CHF, consistent with systolic heart failure as the patient is known to have some mild impairment of the LV function with an ejection fraction of 40-45% based on her present cardiac up from January 2021, repeat echocardiogram showed further impairment of LV function patient ejection fraction is around 30-35% Coronary artery disease Acute non-ST segment elevation myocardial infarction, currently on IV heparin and aspirin and beta blockers. Troponin peaked at 4.8, post cardiac catheterization and successful stenting of the mid LAD 2 with good results Acute atrial flutter with RVR, improved and the patient's cardiac rhythm is sinu s Hypertension with elevated blood pressure, improved Chronic smoker Cellulitis of the right upper extremity antecubital area Plan Clinically unchanged, stable, free of any chest pain Continue using incentive spirometer Monitor the cardiac rhythm Metoprolol 25 mg by mouth twice a day Aldactone 25 mg by mouth daily Start the patient on Keflex 500 mg twice a day Continue aspirin and Effient Continue high-dose statins Transfer this patient out of the intensive care unit
[2022-01-12 11:59] LABS: Glucose,Whole Blood 100 mg/dL (70-110)
[2022-01-12 13:21] LABS: Appearance,Urine Clear (Clear); Bilirubin,Urine Negative (Negative); Blood,Urine Moderate (Negative); Color,Urine Light Yellow; Glucose,Urine (UA) Negative (Negative); Ketones,Urine Negative (Negative); Leukocyte Esterase,Urine Negative (Negative); Nitrite,Urine Negative (Negative); PH, Urine 7.5 (5.0-8.0); Protein,Urine Negative (Negative); RBC,Urine 14 /hpf (0-5); Specific Gravity,Urine 1.009 (1.001-1.035); Urobilinogen,Urine <2.0 mg/dL (<2.0); WBC,Urine 1 /hpf (0-5)
[2022-01-13 06:41] LABS: HCT 52.7 % (39.0-53.0); HGB 17.1 gm/dL (13.0-17.5); MCH 30.7 pg (25.0-35.0); MCHC 32.5 g/dL (31.0-37.0); MCV 94.4 fL (80.0-100.0); Mean Platelet Volume 8.3; Platelet Count 204 k/uL (150-450); RBC 5.58 m/uL (4.30-5.90); RDW 13.4 % (11.5-15.5); WBC 11.9 k/uL (3.8-10.6)
[2022-01-13 06:49] LABS: Calcium 9.2 mg/dL (8.4-10.2); Potassium 4.1 mmol/L (3.5-5.1)
[2022-01-13] MEDS: IPRATROPIUM-ALBUTEROL 3 ML NEB INHALATION SCH (07:48)
[2022-01-13] MEDS: HEPARIN SOD,PORK IN 0.45% NACL 25,000 UNIT in 0.45% NACL 1 250ML.BAG IV SCH (08:10)
[2022-01-13] MEDS: SPIRONOLACTONE 25 MG TAB PO SCH (08:15)
[2022-01-13] MEDS: CEPHALEXIN 500 MG CAP PO SCH (08:15)
[2022-01-13] MEDS: PRASUGREL 10 MG TAB PO SCH (08:15)
[2022-01-13] MEDS: ATORVASTATIN 40 MG TAB PO SCH (08:15)
[2022-01-13] MEDS: ASPIRIN 81 MG PO SCH (08:15)
[2022-01-13] MEDS: lisinopriL 5 MG TAB PO SCH (08:16)
[2022-01-13] MEDS: FUROSEMIDE 40 MG TAB PO SCH (08:16)
[2022-01-13] MEDS: PANTOPRAZOLE 40 MG/10 ML VIAL IV SCH (08:16)
--- NOTE | 2022-01-13 08:17 | P.PN ---
Subjective PROGRESS NOTE The patient is a 61-year-old male who presented with acute respiratory distress, requiring mechanical ventilation. He remains intubated but following commands. He is in sinus mechanism. He is on the low dose of norepinephrine. His urine output is good. He has no evidence of malignant arrhythmia. His echocardiogram showed an ejection fraction of 30-35% with no mention of segmental wall motion. No significant valvular disease was noted. He has a prior history of cardiomyopathy with abnormal stress test a year ago. He has been seen by Dr. Whatley in the past and cardiac catheterization was recommended. His troponin peak was 4.8 January 10: The patient is extubated, feels well this morning, his breathing is better, he denies any chest discomfort, dizziness or palpitations. He continues to be in sinus mechanism. Hemodynamically he stable with good urinary output. He has no evidence of atrial fibrillation or ventricular tachycardia. He has evidence of cardiomyopathy on his echocardiogram. January 11: The patient underwent cardiac catheterization yesterday and was found to have severe obstructive disease in the mid LAD, underwent stenting of that vessel by Dr. Whatley. He was also found to have moderate severe disease in the RCA. He feels better today. He denies any chest discomfort, dizziness or palpitations. He is in sinus mechanism. He denies any nausea or vomiting. Hemodynamically he is stable. January 12: The patient is feeling well this morning, ambulating in the room without difficulties. He is complaining of discomfort in the site of his venous access in the right brachial area. He has mild redness. He denies any chest discomfort, dizziness or palpitations. He continues to be in sinus mechanism. He is hemodynamically stable. 01/13 Patient seen and examined. He denies any chest pain or pressure. Has been on Lasix twice a day however denies any orthopnea or lower extremity edema. Has been walking the halls without any difficulty. PHYSICAL EXAMINATION: Vitals reviewed LUNGS: Scattered rhonchi HEART: Regular rate and rhythm, S1, S2. No S3. systolic systolic ejection murmur ABDOMEN: Soft, nontender, no organomegaly EXTREMETIES: No edema, right brachial venous axis redness and tenderness IMPRESSION: 1. Respiratory failure with pulmonary edema, resolved 2. Non-STEMI, status post stenting of the mid LAD 3. Acute on chronic systolic heart failure, improved 4. History of chronic tobacco use 5. History of hypertension 6. Moderate to significant disease in the RCA 7. Cellulitis of right brachial vein axis PLAN: Continue dual antiplatelets and the heart failure regimen. Decrease Lasix to once a day. Increase Metoprolol to 25 bid. RCA to be further evaluated as an o utpatient. Stable for discharge home today outpatient follow-up in one week. Objective - Vital Signs Vital signs: Vital Signs Temp 98.5 F 01/13/22 04:00 Pulse 68 01/13/22 08:03 Resp 20 01/13/22 04:00 BP 128/89 01/13/22 04:00 Pulse Ox 93 L 01/13/22 04:00 FiO2 40 01/09/22 11:16 Intake & Output 01/12/22 01/13/22 01/13/22 18:59 06:59 18:59 Intake Total 540 600 Balance 540 600 Weight 89.9 kg Intake: Oral 540 600 Other: Voiding Method Toilet Toilet Toilet # Voids 5 6 # Bowel Movements 1 - Labs CBC & Chem 7: 01/13/22 06:11 01/13/22 06:11 Labs: Abnormal Lab Results - Last 24 Hours (Table) 01/12/22 01/13/22 01/13/22 Range/Units 12:38 06:11 06:11 WBC 11.9 H (3.8-10.6) k/uL Chloride 97 L (98-107) mmol/L Carbon Dioxide 35 H (22-30) mmol/L BUN 26 H (9-20) mg/dL Glucose 112 H (74-99) mg/dL Urine Blood Moderate H (Negative) Urine RBC 14 H (0-5) /hpf
[2022-01-13 08:21] VITALS: BP 121/97; PULSE 85; RESP 18; TEMP 98.2
[2022-01-13] MEDS ORDERED: METOPROLOL TARTRATE 25 MG TAB PO SCH (09:00)
[2022-01-13] MEDS ORDERED: FUROSEMIDE 40 MG TAB PO SCH (09:00)
--- NOTE | 2022-01-13 12:51 | P.DS ---
Providers Date of admission: 01/08/22 05:56 Expected date of discharge: 01/13/22 Attending physician: Sherine Mata Consults: 01/08/22 05:56 Consult Physician Routine Consulting Provider: Jadon Le Consult Reason/Comments: icu Do you want consulting provider notified?: Yes Consult Physician Routine Consulting Provider: Dong Cortez Consult Reason/Comments: chf Do you want consulting provider notified?: Yes 01/10/22 14:02 Consult Physician Routine Consulting Provider: [facility] Consult Reason/Comments: Post Interventional Patient Do you want consulting provider notified?: Already Contacted Primary care physician: Elly Toney [facility] Course: Final diagnosis Acute hypoxic respiratory failure secondary to CHF exacerbation. Requiring mechanical ventilation, patient was extubated on 01/09/2022 Acute on chronic CHF with systolic dysfunction ejection fraction 40% Acute non-ST elevated ME Status post cardiac catheterization with successful stenting to the mid LAD and moderate to severe disease noted in the RCA History of abnormal MPI in January 2021. Patient opted for medical management at that time. New onset atrial flutter with rapid ventricular rate. Currently rate controlled Hyperglycemia. Possible new onset pre-diabetes. Hemoglobin A1c is 6.0 Uncontrolled hypertension History of smoking Medication noncompliance GI and DVT prophylaxis Full code Discharge disposition Patient is being discharged in a stable condition with guarded prognosis to home. Patient will follow-up with Dr. Toney in the outpatient setting upon discharge. Patient is to follow-up with cardiology Dr. Shoemaker as well as pulmonary in the outpatient setting as scheduled. Patient will continue on cardiac medications as mentioned below and will also continue on a short course of Keflex 500 mg 3 times a day for the next 5 days. Recommend follow-up labs of CBC BMP in the outpatient setting in 2-3 days. Total time taken is greater than 35 minutes. Hospital course This is a 61-year-old male who was recently admitted with increasing shortness of breath on onset requiring mechanical ventilation on admission. Patient was hospitalized and closely monitored in the ICU with cardiology and pulmonary following. Patient had previous admission with some reduced for ejection fraction and heart failure with interventions being planned although patient opted for medical management and had not followed up since. Patient started having worsening shortness of breath and on the day of admission was rushed here to the hospital after being found unresponsive and placed on mechanical ventilation. Chest x-ray showed some pulmonary interstitial edema and acute heart failure. Cardiology had been following recommend cardiac catheterization and patient was agreeable and underwent successful stenting of the LAD with Dr. Whatley. Patient also with moderate severe disease in the RCA and will need close outpatient follow-up. Patient will continue on Lasix daily and other mentioned cardiac medications on discharge. Prescriptions also provided for follow-up labs to monitor electrolytes and kidney functions outpatient. Patient reports to feeling much better and extremely anxious to be discharged. Patient has been cleared by cardiology this morning along with pulmonary and will follow-up with them in the outpatient setting. Spouse or significant other at the bedside and discussed at length about discharge planning and follow-up appointments. Patient's blood sugars were mildly elevated although controlled during hospitalization and hemoglobin A1c was 6.0 recommend consistent carb and cardiac healthy diet and follow-up with primary care provider Dr. Toney to discuss these findings. Patient verbalized understanding. Currently no reports of chest pain, shortness of breath, or palpitations. Patient is afebrile. No reports of nausea or vomiting and patient is tolerating diet. Patient will be discharged home today. Physical exam: Gen: This is a 61-year-old male awake, alert and oriented 3, well-developed, well-nourished. Obese. HEENT: Head is atraumatic, normocephalic. Pupils equal, round. Sclerae is anicteric. NECK: Supple. No JVD. No lymphadenopathy. No thyromegaly. LUNGS: Diminished breath sounds bilaterally with no wheezing or rhonchi noted. No intercostal retractions. HEART: Regular rate and rhythm. No murmur. ABDOMEN: Soft. Obese. Bowel sounds are present. No masses. No tenderness. EXTREMITIES: No pedal edema. No calf tenderness. NEUROLOGICAL: Patient is awake, alert and oriented x3. Cranial nerves 2 through 12 are grossly intact. Please refer to medication reconciliation sheet for a list of medications. The impression and plan of care has been dictated by Harper Frank, Nurse Practitioner as directed. Dr. Axel MD I have performed a history and examination and MDM of this patient, discussed the same with the dictator, and agree with the dictator's assessment and plan as written ,documented as a scribe. Based on total visit time, I have performed more than 50% of the visit. Patient Condition at Discharge: Stable Plan - Discharge Summary New Discharge Prescriptions: New Spironolactone [Aldactone] 25 mg PO DAILY #30 tab Aspirin 81 mg PO DAILY #30 tab Cephalexin [Keflex] 500 mg PO TID 5 Days #15 cap lisinopriL [Zestril] 5 mg PO BID #60 tab Prasugrel [Effient] 10 mg PO DAILY 30 Days #30 tab Furosemide [Lasix] 40 mg PO DAILY #30 tab Atorvastatin [Lipitor] 40 mg PO DAILY #30 tab Metoprolol Tartrate [Lopressor] 25 mg PO BID #60 tab Nitroglycerin Sl Tabs [Nitrostat] 0.4 mg SUBLINGUAL Q5M PRN #30 tab PRN Reason: Chest Pain Albuterol Inhaler [Ventolin Hfa Inhaler] 1 puff INHALATION RT-QID 30 Days #8 gm Discharge Medication List Albuterol Inhaler [Ventolin Hfa Inhaler] 1 puff INHALATION RT-QID 30 Days #8 gm 01/13/22 [Rx] Aspirin 81 mg PO DAILY #30 tab 01/13/22 [Rx] Atorvastatin [Lipitor] 40 mg PO DAILY #30 tab 01/13/22 [Rx] Cephalexin [Keflex] 500 mg PO TID 5 Days #15 cap 01/13/22 [Rx] Furosemide [Lasix] 40 mg PO DAILY #30 tab 01/13/22 [Rx] Metoprolol Tartrate [Lopressor] 25 mg PO BID #60 tab 01/13/22 [Rx] Nitroglycerin Sl Tabs [Nitrostat] 0.4 mg SUBLINGUAL Q5M PRN #30 tab 01/13/22 [Rx] Prasugrel [Effient] 10 mg PO DAILY 30 Days #30 tab 01/13/22 [Rx] Spironolactone [Aldactone] 25 mg PO DAILY #30 tab 01/13/22 [Rx] lisinopriL [Zestril] 5 mg PO BID #60 tab 01/13/22 [Rx] Follow up Appointment(s)/Referral(s): Caden Shoemaker DO [STAFF PHYSICIAN] - 01/20/22 5:15 pm Elly Toney MD [Primary Care Provider] - 01/16/22 10:40 am Jadon Le MD [STAFF PHYSICIAN] - 01/22/22 1:00 pm (With Dr Sewell) Ambulatory/Diagnostic Orders: Complete Blood Count w/diff [LAB.AMB] Time Frame: 3 Days, Location: None Selected Patient Instructions/Handouts: COPD (Chronic Obstructive Pulmonary Disease) (DC), Heart Catheterization (DC) Activity/Diet/Wound Care/Special Instructions: activity limited until follow up follow up with primary care provider on discharge follow up with cardiology in one week follow up with pulmonary in 1-2 weeks continue taking medications as prescribed continue heart healthy/ consistent carb diet use good rx at pharmacy for inhaler if not covered by insurance Discharge Disposition: HOME SELF-CARE
--- NOTE | 2022-01-13 13:04 | P.PN ---
Subjective Progress Note Date: 01/13/22 Principal diagnosis: Acute hypoxic failure secondary to acute on chronic systolic congestive heart failure 01/12/2022, the patient is awake and alert and the patient has no specific complaints. He is free of any chest pain. Hemodynamically stable. He has developed some cellulitis of the right upper extremity at the site of IV line insertion. He is radial artery pulses adequate. No hematoma. The patient is currently on a combination of aspirin and Effient. The patient has also been on metoprolol 12.5 mg twice a day. He is on Aldactone. Sleeping well. Ambulating. Cardiac rhythm is sinus. Blood work is also stable. The patient has a BUN of 25 and a creatinine of 1.0 with a sodium level of 139 Reevaluated today on 01/13/22, patient seems to be doing well, asymptomatic, on room air, patient would like to be discharged home. He does have cellulitis of the right upper extremity, and this is at the site of his IV line insertion, patient is on antibiotics orally. Objective - Vital Signs Vital signs: Vital Signs Temp 98.2 F 01/13/22 08:00 Pulse 68 01/13/22 08:03 Resp 18 01/13/22 08:00 BP 121/97 01/13/22 08:00 Pulse Ox 91 L 01/13/22 08:00 FiO2 40 01/09/22 11:16 Intake & Output 01/12/22 01/13/22 01/13/22 18:59 06:59 18:59 Intake Total 540 600 Balance 540 600 Weight 89.9 kg Intake: Oral 540 600 Other: Voiding Method Toilet Toilet Toilet # Voids 5 6 # Bowel Movements 1 - Exam Physical Exam: Revealed a 61-year-old white male in no distress. HEENT:[Neck is supple.] [No neck masses.] [No thyromegaly.] [No JVD.] Chest: [Clear throughout, no crackles, no rhonchi, no wheezes.] Cardiac Exam: [Normal S1 and S2, no S3 gallop, no murmur.] Abdomen: [Soft, nontender, no megaly, no rebound, no guarding, normal bowel sounds.] Extremities: [No clubbing, no edema, no cyanosis.] There is evidence of mild cellulitis/superficial thrombophlebitis in the right brachial area. Neurological Exam: [No focal neurologic deficit.] - Labs CBC & Chem 7: 01/13/22 06:11 01/13/22 06:11 Labs: Abnormal Lab Results - Last 24 Hours (Table) 01/12/22 01/13/22 01/13/22 Range/Units 12:38 06:11 06:11 WBC 11.9 H (3.8-10.6) k/uL Chloride 97 L (98-107) mmol/L Carbon Dioxide 35 H (22-30) mmol/L BUN 26 H (9-20) mg/dL Glucose 112 H (74-99) mg/dL Urine Blood Moderate H (Negative) Urine RBC 14 H (0-5) /hpf Assessment and Plan Assessment: Impression: Acute hypoxic respiratory failure secondary to acute on chronic systolic congestive heart failure ejection fraction of 30-35%. Acute non-ST elevation myocardial infarction Atrial fibrillation/flutter Hypertension Chronic smoker Cellulitis of the right upper extremity in the antecubital area. Recommendation: Continue present supportive care measures Continue oral antibiotics Continue cardiac meds including metoprolol and Aldactone aspirin and Effient Agree with discharge planning if cleared by cardiology. Time with Patient: Less than 30
[2022-01-14] MEDS ORDERED: PANTOPRAZOLE 40 MG TABLET PO SCH (07:30)
--- NOTE | 2022-01-15 07:31 | CDI ---
Documentation Clarification Form Date: 01/15/22 From: Airam Middleton Admit Date: 01/08/2022 05:56:00 AM Patient Name: Manas Parikh Visit Number: [id number] Discharge Date: 01/13/2022 10:40:00 AM ATTENTION: The Clinical Documentation Specialists (CDI) and [facility] Coding Staff appreciate your assistance in clarifying documentation. Please respond to the clarification below the line at the bottom and electronically sign. The CDI & [facility] Coding staff will review the response and follow-up if needed. Please note: Queries are made part of the Legal Health Record. If you have any questions, please contact the author of this message via ITS. Dr. Sherine Mata, Atrial Flutter is documented in the H&P, numerous PNs and the DS. Additional clarification regarding the type of Atrial Flutter is requested. History/Risk factors: HTN heart disease w acute on chronic systolic CHF, NSTEMI, acute hypoxic respiratory failure, cardiomyopathy, COPD, CAD Clinical Indicators: New onset atrial flutter with rapid ventricular rate. EKG showed atrial flutter with rapid ventricular response and the patient had voltage criteria of LVH. EKG/telemetry: Atrial flutter/tachycardia w RVR w aberrant conduction or ventricular premature complexes. Vent rate 131 BPM, WI int 8 ms, QRS 98 ms, QT/QTc 266/343 ms Treatment: Heparin, Vasotec, Lopressor, Lisinopril, ASA Please clarify the type of Atrial Flutter, if known: [ ] Typical/Type I [ ] Atypical/Type II [ ] Other, please specify [ ] Unable to determine not mine MTDD
--- NOTE | 2022-01-21 09:57 | CDI ---
Documentation Clarification Form Date: 01/15/2022 07:31:00 AM From: Airam Middleton Admit Date: 01/08/2022 05:56:00 AM Patient Name: Manas Parikh Visit Number: [id number] Discharge Date: 01/13/2022 10:40:00 AM ATTENTION: The Clinical Documentation Specialists (CDI) and [facility] Coding Staff appreciate your assistance in clarifying documentation. Please respond to the clarification below the line at the bottom and electronically sign. The CDI & [facility] Coding staff will review the response and follow-up if needed. Please note: Queries are made part of the Legal Health Record. If you have any questions, please contact the author of this message via ITS. Dr. Rosmery Reyna, Atrial Flutter is documented in the H&P, numerous PNs and the DS. Additional clarification regarding the type of Atrial Flutter is requested. History/Risk factors: HTN heart disease w acute on chronic systolic CHF, NSTEMI, acute hypoxic respiratory failure, cardiomyopathy, COPD, CAD Clinical Indicators: New onset atrial flutter with rapid ventricular rate. EKG showed atrial flutter with rapid ventricular response and the patient had voltage criteria of LVH. EKG/telemetry: Atrial flutter/tachycardia w RVR w aberrant conduction or ventricular premature complexes. Vent rate 131 BPM, VT int 8 ms, QRS 98 ms, QT/QTc 266/343 ms Treatment: Heparin, Vasotec, Lopressor, Lisinopril, ASA Please clarify the type of Atrial Flutter, if known: [ ] Typical/Type I [ ] Atypical/Type II [ ] Other, please specify [ x ] Unable to determine MTDD
--- NOTE | 2022-02-04 01:39 | P.PN ---
Subjective Progress Note Date: 01/11/22 Patient is a 61-year-old male with a known history of coronary artery disease and abdominal myocardial perfusion imaging in January 2021, patient opted for medical management and echocardiogram showed ejection fraction 40% presents to ER with complaints of sudden onset of severe shortness of breath last night. Patient has been having worsening breathing status for the past 1 week. Patient was unresponsive at the time of arrival. He was immediately intubated and placed on mechanical ventilator. Chest x-ray showed diffuse pulmonary interstitial edema which could be acute pneumonia or acute heart failure. CT head and cervical spine showed spondylitic changes in the mid and lower cervical spine. No fracture. Negative CT scan of the brain. Ethmoid sinusitis. CT of the thoracic aorta is negative. There is pulmonary edema with small pleural effusions and bilateral pulmonary infiltrates and atelectasis. This could be congestive heart failure. EKG showed atrial flutter/tachycardia with rapid ventricle response. On admission patient was tachycardic. Blood pressure was 158/113 mmHg Laboratory test showed WBC 10.9 hemoglobin level of 16.6 platelets 267 INR 1.2 ABG showed pH 7.21 PCO2 67 PO2 363 Sodium 140 potassium 4.6 chloride 103 bicarb is 20 BUN 18 and creatinine 1.23 and blood sugar is 325 Lactic acid 5.4 magnesium 2.5, proBNP is 4070 Troponin 0.096, 01.560, 4.82 01/09/2022 Patient is seen and evaluated and follow-up continues to be the ICU with cardiology and pulmonary plywood matcher following closely. Patient was intubated with weaning parameters within normal limits and just underwent successful extubation and is currently maintained on 3 L via nasal cannula maintaining o xygen saturation above 91%. Patient continues on IV Lasix along with IV heparin with cardiology following as well. Patient needs to have cardiac catheterization as he was hospitalized previously recommending this although patient wanted to continue with maximizing medical management. Patient does have a history of some noncompliance. Blood sugars were elevated on admission and recommend continue with Accu-Cheks before meals and at bedtime and sliding scale as needed. Follow up on hemoglobin A1c was 6.0 and will not initiate new medications at this time but continue to monitor with sliding scale and have patient follow-up in the outpatient setting. Patient denies any previous history of diabetes. Patient is afebrile and denies chest pain or palpitations. Patient is currently nothing by mouth per protocol status post extubation and continues to ask for food. 01/10/2022 Patient is seen this morning and continues to be in the ICU with cardiology and pulmonary following. Patient is continued on 2L Via NC and tolerating. Patient is continued on cardiac medications along with IV heparin and cardiology following and planning on cardiac catheterization. Patient is currently NPO for the procedure. Labs reviewed and kidney functions with some improvement. Patient has been transitioned to oral lasix and diuresing well. Will await cardiac report. Encouraged increased activity as tolerated. Patient denies chest pain or palpitations, patient is afebrile. Patient denies nausea or vomiting. 01/11/2022 Patient is currently resting in the bed. Status post cardiac catheterization an d stent placement to LAD x2. No arrhythmias noted overnight. Patient is on dual antiplatelets currently on aspirin and Effient. Currently on metoprolol 20 mg twice daily. Currently on room air. No complaints of cough or sputum production. No fever no chills. Hemodynamically stable. Laboratory test showed sodium 141 potassium 4.1 chloride 99 bicarb is 37 BUN 32 and creatinine 1.04 and blood sugar is 115. Calcium 8.4. Pulmonary and cardiology is on board. Review of systems: Constitutional: No reports of fatigue, fever, or chills Cardiovascular: No reports of chest pain or palpitations Respiratory: reports of shortness of breath and occasional cough,with no worsening GI: No reports of nausea, vomiting, or diarrhea : No reports of dysuria or retention Neurovascular: reports of weakness All medications have been reviewed PHYSICAL EXAMINATION: Constitutional: Patient is awake alert and oriented 3 maintained on 2 L via nasal cannula. Well developed, well nourished, obese HEENT: Normocephalic. Neck is supple. Pupils reactive. Nostrils clear. Oral cavity is moist. Neck reveals no JVD, carotid bruits, or thyromegaly. CHEST EXAMINATION: Trachea is central. Symmetrical expansion. Bibasilar diminished sounds with some faint crackles at the bases. No wheezing. CARDIAC: S1, S2 muffled ABDOMEN: Soft. Bowel sounds present. Nontender. No organomegaly. No abdominal bruits. Extremities: reveal trace pedal edema. No clubbing or cyanosis Neurologically patient is awake, calm, cooperative, No gross focal deficits noted Skin: No rash or skin lesions. Psychiatric: Cooperative, nonsuicidal Musculoskeletal: No joint swelling or deformity. Assessment: Acute hypoxic respiratory failure secondary to CHF exacerbation. Requiring mechanical ventilation, patient was extubated on 01/09/2022 Acute on chronic CHF with systolic dysfunction ejection fraction 40% Acute non-ST elevated [place] History of abnormal MPI in January 2021. Patient opted for medical management at that time. New onset atrial flutter with rapid ventricular rate. Correlate for sinus node. Hyperglycemia. Possible new onset pre-diabetes. Hemoglobin A1c is 6.0 Uncontrolled hypertension History of smoking Medication noncompliance GI and DVT prophylaxis. Full code Plan: Recommend to continue with telemetry monitoring and ICU management at this time as patient was recently extubated yesterday and patient continues to require oxygen via nasal cannula at 2 L and does not normally wear any oxygen at home. Patient is transitioned to oral Lasix along with IV heparin and will continue. Cardiology following and patient will undergo cardiac catheterization today. Await report. Blood sugars were elevated and recommend continue with Accu- Cheks before meals and at bedtime and sliding scale. Patient denies history of diabetes may be a component of new onset prediabetes is hemoglobin A1c is found to be 6.0. We'll continue with sliding scale for now and have patient follow-up in the outpatient setting with primary care provider once stabilized. Recommend chest x-ray in the a.m. and repeat labs. Recommend to continue monitoring intake and output closely Recommend continue telemetry monitoring Follow up on cardiac cath report Due to multiple complex medical issues, prognosis is guarded Objective - Vital Signs Vital signs: Vital Signs Temp 98.6 F 01/11/22 20:00 Pulse 58 L 01/11/22 20:23 Resp 22 01/11/22 20:00 BP 143/91 01/11/22 20:00 Pulse Ox 93 L 01/11/22 20:00 FiO2 40 01/09/22 11:16 Intake & Output 01/11/22 01/11/22 01/12/22 06:59 18:59 06:59 Intake Total 675 840 120 Output Total 1000 0 Balance -325 840 120 Weight 91.6 kg 91.6 kg Intake: IV 675 NS 675 Oral 840 120 Output: Urine 1000 0 Other: Voiding Method Toilet Toilet # Voids 0 1 3 # Bowel Movements 1 - Labs CBC & Chem 7: 01/13/22 06:11 01/13/22 06:11 Labs: Abnormal Lab Results - Last 24 Hours (Table) 01/11/22 01/11/22 01/11/22 Range/Units 06:07 06:54 20:44 Carbon Dioxide 37 H (22-30) mmol/L BUN 32 H (9-20) mg/dL Glucose 115 H (74-99) mg/dL POC Glucose (mg/dL) 121 H 132 H (70-110) mg/dL
--- NOTE | 2022-02-04 01:41 | P.PN ---
Subjective Progress Note Date: 01/12/22 Patient is a 61-year-old male with a known history of coronary artery disease and abdominal myocardial perfusion imaging in January 2021, patient opted for medical management and echocardiogram showed ejection fraction 40% presents to ER with complaints of sudden onset of severe shortness of breath last night. Patient has been having worsening breathing status for the past 1 week. Patient was unresponsive at the time of arrival. He was immediately intubated and placed on mechanical ventilator. Chest x-ray showed diffuse pulmonary interstitial edema which could be acute pneumonia or acute heart failure. CT head and cervical spine showed spondylitic changes in the mid and lower cervical spine. No fracture. Negative CT scan of the brain. Ethmoid sinusitis. CT of the thoracic aorta is negative. There is pulmonary edema with small pleural effusions and bilateral pulmonary infiltrates and atelectasis. This could be congestive heart failure. EKG showed atrial flutter/tachycardia with rapid ventricle response. On admission patient was tachycardic. Blood pressure was 158/113 mmHg Laboratory test showed WBC 10.9 hemoglobin level of 16.6 platelets 267 INR 1.2 ABG showed pH 7.21 PCO2 67 PO2 363 Sodium 140 potassium 4.6 chloride 103 bicarb is 20 BUN 18 and creatinine 1.23 and blood sugar is 325 Lactic acid 5.4 magnesium 2.5, proBNP is 4070 Troponin 0.096, 01.560, 4.82 01/09/2022 Patient is seen and evaluated and follow-up continues to be the ICU with cardiology and pulmonary marketing project coordinator following closely. Patient was intubated with weaning parameters within normal limits and just underwent successful extubation and is currently maintained on 3 L via nasal cannula maintaining o xygen saturation above 91%. Patient continues on IV Lasix along with IV heparin with cardiology following as well. Patient needs to have cardiac catheterization as he was hospitalized previously recommending this although patient wanted to continue with maximizing medical management. Patient does have a history of some noncompliance. Blood sugars were elevated on admission and recommend continue with Accu-Cheks before meals and at bedtime and sliding scale as needed. Follow up on hemoglobin A1c was 6.0 and will not initiate new medications at this time but continue to monitor with sliding scale and have patient follow-up in the outpatient setting. Patient denies any previous history of diabetes. Patient is afebrile and denies chest pain or palpitations. Patient is currently nothing by mouth per protocol status post extubation and continues to ask for food. 01/10/2022 Patient is seen this morning and continues to be in the ICU with cardiology and pulmonary following. Patient is continued on 2L Via NC and tolerating. Patient is continued on cardiac medications along with IV heparin and cardiology following and planning on cardiac catheterization. Patient is currently NPO for the procedure. Labs reviewed and kidney functions with some improvement. Patient has been transitioned to oral lasix and diuresing well. Will await cardiac report. Encouraged increased activity as tolerated. Patient denies chest pain or palpitations, patient is afebrile. Patient denies nausea or vomiting. 01/11/2022 Patient is currently resting in the bed. Status post cardiac catheterization an d stent placement to LAD x2. No arrhythmias noted overnight. Patient is on dual antiplatelets currently on aspirin and Effient. Currently on metoprolol 20 mg twice daily. Currently on room air. No complaints of cough or sputum production. No fever no chills. Hemodynamically stable. Laboratory test showed sodium 141 potassium 4.1 chloride 99 bicarb is 37 BUN 32 and creatinine 1.04 and blood sugar is 115. Calcium 8.4. Pulmonary and cardiology is on board. 01/12/2022 Patient denied any new complaints today. No complaints of chest pain. Shortness of breath improved. Currently patient is on room air. Currently be continued on dual antiplatelet agents. Metoprolol dose decreased to 12.5 mg twice daily. Able to ambulate in the room and tolerate oral intake. Laboratory test showed sodium 139 potassium 3.6 chloride 97 bicarb 34 BUN 25 and creatinine 1.0 and blood sugar is 101. Anticipate discharge in the next 24 hours. Review of systems: Constitutional: No reports of fatigue, fever, or chills Cardiovascular: No reports of chest pain or palpitations Respiratory: reports of shortness of breath and occasional cough,with no worsening GI: No reports of nausea, vomiting, or diarrhea : No reports of dysuria or retention Neurovascular: reports of weakness All medications have been reviewed PHYSICAL EXAMINATION: Constitutional: Patient is awake alert and oriented 3 maintained on 2 L via nasal cannula. Well developed, well nourished, obese HEENT: Normocephalic. Neck is supple. Pupils reactive. Nostrils clear. Oral cavity is moist. Neck reveals no JVD, carotid bruits, or thyromegaly. CHEST EXAMINATION: Trachea is central. Symmetrical expansion. Bibasilar diminished sounds with some faint crackles at the bases. No wheezing. CARDIAC: S1, S2 muffled ABDOMEN: Soft. Bowel sounds present. Nontender. No organomegaly. No abdominal bruits. Extremities: reveal trace pedal edema. No clubbing or cyanosis Neurologically patient is awake, calm, cooperative, No gross focal deficits noted Skin: No rash or skin lesions. Psychiatric: Cooperative, nonsuicidal Musculoskeletal: No joint swelling or deformity. Assessment: Acute hypoxic respiratory failure secondary to CHF exacerbation. Requiring mechanical ventilation, patient was extubated on 01/09/2022 Acute on chronic CHF with systolic dysfunction ejection fraction 40% Acute non-ST elevated [place] History of abnormal MPI in January 2021. Patient opted for medical management at that time. New onset atrial flutter with rapid ventricular rate. Correlate for sinus node. Hyperglycemia. Possible new onset pre-diabetes. Hemoglobin A1c is 6.0 Uncontrolled hypertension History of smoking Medication noncompliance GI and DVT prophylaxis. Full code Plan: Recommend to continue with telemetry monitoring and ICU management at this time as patient was recently extubated yesterday and patient continues to require oxygen via nasal cannula at 2 L and does not normally wear any oxygen at home. Patient is transitioned to oral Lasix along with IV heparin and will continue. Cardiology following and patient will undergo cardiac catheterization today. Await report. Blood sugars were elevated and recommend continue with Accu- Cheks before meals and at bedtime and sliding scale. Patient denies history of diabetes may be a component of new onset prediabetes is hemoglobin A1c is found to be 6.0. We'll continue with sliding scale for now and have patient follow-up in the outpatient setting with primary care provider once stabilized. Recommend chest x-ray in the a.m. and repeat labs. Recommend to continue monitoring intake and output closely Recommend continue telemetry monitoring Follow up on cardiac cath report Due to multiple complex medical issues, prognosis is guarded Objective - Vital Signs Vital signs: Vital Signs Temp 97.5 F L 01/12/22 20:00 Pulse 66 01/12/22 20:53 Resp 22 01/12/22 20:00 BP 135/94 01/12/22 20:00 Pulse Ox 92 L 01/12/22 20:00 FiO2 40 01/09/22 11:16 Intake & Output 01/12/22 01/12/22 01/13/22 06:59 18:59 06:59 Intake Total 360 540 240 Balance 360 540 240 Weight 91.2 kg Intake: Oral 360 540 240 Other: Voiding Method Toilet Toilet Toilet # Voids 8 5 3 # Bowel Movements 1 - Labs CBC & Chem 7: 01/13/22 06:11 01/13/22 06:11 Labs: Abnormal Lab Results - Last 24 Hours (Table) 01/12/22 01/12/22 01/12/22 Range/Units 06:24 06:30 12:38 Chloride 97 L (98-107) mmol/L Carbon Dioxide 34 H (22-30) mmol/L BUN 25 H (9-20) mg/dL Glucose 101 H (74-99) mg/dL POC Glucose (mg/dL) 114 H (70-110) mg/dL Urine Blood Moderate H (Negative) Urine RBC 14 H (0-5) /hpf
== END 2022-01-13 10:40 | disposition home or self-care (01) | DRG 246 ==
LOC: EC 04:11 → 2SICU 05:56
PROVIDERS: ADMIT Hospitalist; ATTEND Hospitalist
PROC: 5A1945Z Respiratory Ventilation, 24-96 Consecutive Hours (ICD-10-PCS; 2022-01-08)
PROC: 0BH17EZ Insertion of Endotracheal Airway into Trachea, Via Natural or Artificial Opening (ICD-10-PCS; 2022-01-08)
PROC: 0D9670Z Drainage of Stomach with Drainage Device, Via Natural or Artificial Opening (ICD-10-PCS; 2022-01-08)
PROC: B2111ZZ Fluoroscopy of Multiple Coronary Arteries using Low Osmolar Contrast (ICD-10-PCS; 2022-01-10)
PROC: 027035Z Dilation of Coronary Artery, One Artery with Two Drug-eluting Intraluminal Devices, Percutaneous Approach (ICD-10-PCS; principal; 2022-01-10 12:25)
PROC: 4A023N7 Measurement of Cardiac Sampling and Pressure, Left Heart, Percutaneous Approach (ICD-10-PCS; 2022-01-10 12:25)
DX: I11.0 Hypertensive heart disease with heart failure (principal); I21.4 Non-ST elevation (NSTEMI) myocardial infarction; I50.23 Acute on chronic systolic (congestive) heart failure; J96.01 Acute respiratory failure with hypoxia; J98.11 Atelectasis; T80.29XA Infection following other infusion, transfusion and therapeutic injection, initial encounter; L03.113 Cellulitis of right upper limb; I48.92 Unspecified atrial flutter; I42.9 Cardiomyopathy, unspecified; J44.9 Chronic obstructive pulmonary disease, unspecified; Z28.310 Unvaccinated for COVID-19; I25.10 Atherosclerotic heart disease of native coronary artery without angina pectoris; E78.00 Pure hypercholesterolemia, unspecified; R73.9 Hyperglycemia, unspecified; J32.2 Chronic ethmoidal sinusitis; T50.906A Underdosing of unspecified drugs, medicaments and biological substances, initial encounter; Z91.128 Patient's intentional underdosing of medication regimen for other reason; E66.9 Obesity, unspecified; Z68.33 Body mass index [BMI] 33.0-33.9, adult; Z91.19 Patient's noncompliance with other medical treatment and regimen; F17.210 Nicotine dependence, cigarettes, uncomplicated; Z71.6 Tobacco abuse counseling; Z88.0 Allergy status to penicillin; Z71.3 Dietary counseling and surveillance; Y84.8 Other medical procedures as the cause of abnormal reaction of the patient, or of later complication, without mention of misadventure at the time of the procedure; Y92.230 Patient room in hospital as the place of occurrence of the external cause
CPT/HCPCS: 31500; 36415; 36600; 70450; 71045; 71275; 72125; 74174; 80048; 80053; 81001; 82805; 83036; 83605; 83735; 83880; 84100; 84484; 85025; 85027; 85610; 85730; 87070; 87205; 93005; 93306; 93454; 94002; 94003; 94640; 96365; 96366; 96367; 96375; 96376; 99285

== ENCOUNTER 2022-02-24 09:12 | Day surgery (SDC) | payer BC ==
[2022-02-20 13:40] VITALS: BMI 31.1
[~2022-02-24 09:12] MED LIST: ALPRAZolam 0.25 MG TAB PO PRN; ALPRAZolam 0.5 MG TAB PO PRN; ASPIRIN 325 MG TAB PO STA; ATORVASTATIN 80 MG TAB PO STA; HEPARIN SODIUM,PORCINE 10,000 UNIT in SODIUM CHLORIDE 0.9% 1,000 ML IRRIGATION PRN; HEPARIN SODIUM,PORCINE 2,500 UNIT in SODIUM CHLORIDE 0.9% 250 ML IRRIGATION PRN; NITROGLYCERIN SL TABS 0.4 MG TAB SUBLINGUAL PRN
[2022-02-24] MEDS: SODIUM CHLORIDE 0.9% 1,000 ML in EMPTY BAG 1 BAG IV SCH ×2 (10:19→14:16)
[2022-02-24 10:23] LABS: Basophils # (A) 0.1 k/uL (0-0.2); Basophils % (A) 1 %; Eosinophils # (A) 0.2 k/uL (0-0.7); Eosinophils % (A) 2 %; HCT 44.7 % (39.0-53.0); Lymphocytes # (A) 2.1 k/uL (1.0-4.8); Lymphocytes % (A) 25 %; MCH 30.8 pg (25.0-35.0); MCHC 33.5 g/dL (31.0-37.0); MCV 92.2 fL (80.0-100.0); Mean Platelet Volume 7.5; Monocytes # (A) 0.4 k/uL (0-1.0); Monocytes % (A) 5 %; Neutrophils # (A) 5.5 k/uL (1.3-7.7); Neutrophils % (A) 65 %; Platelet Count 241 k/uL (150-450); RBC 4.85 m/uL (4.30-5.90); RDW 13.7 % (11.5-15.5); WBC 8.5 k/uL (3.8-10.6)
[2022-02-24 10:44] LABS: African American GFR (CKD) >90 (>60 ml/min/1.73 sqM); Anion Gap 9 mmol/L; Blood Urea Nitrogen 17 mg/dL (9-20); Carbon Dioxide 26 mmol/L (22-30); Chloride 105 mmol/L (98-107); Glucose 114 mg/dL (74-99); Non-African American GFR(CKD) >90 (>60 ml/min/1.73 sqM); Potassium 4.2 mmol/L (3.5-5.1); Sodium 140 mmol/L (137-145)
[2022-02-24] MEDS ORDERED: VERAPAMIL 2.5 MG/ML 2 ML AMP ONE (12:24)
[2022-02-24] MEDS ORDERED: HEPARIN SODIUM,PORCINE 30 ML 30 ML ONE (12:31)
[2022-02-24] MEDS ORDERED: HEPARIN SODIUM 1,000 UN/ML (10ML VL) ONE (12:46)
[2022-02-24] MEDS ORDERED: MIDAZOLAM 2 MG/2 ML VIAL IV ONE (12:48)
[2022-02-24] MEDS ORDERED: LIDOCAINE 1% INJ 10MG/ML (30 ML VIAL-PF) SQ ONE (12:49)
[2022-02-24] MEDS ORDERED: VERAPAMIL SYRINGE (5 MG/10 ML) INTRAARTER ONE (12:51)
[2022-02-24] MEDS: MIDAZOLAM 2 MG/2 ML VIAL IV ONE ×2 (12:52→13:00)
[2022-02-24] MEDS ORDERED: HEPARIN SODIUM 1,000 UN/ML (10ML VL) IV ONE (12:55)
[2022-02-24] MEDS ORDERED: ADENOSINE 90 MG in SODIUM CHLORIDE 0.9% 60 ML IVP ONE (13:06)
[2022-02-24] MEDS ORDERED: IOPAMIDOL-370 125ML BTL INJ ONE (13:24)
[2022-02-24] MEDS ORDERED: ATROPINE SULFATE 0.1 MG/ML 10ML SYRINGE IV PRN (13:26)
[2022-02-24] MEDS ORDERED: ZOLPIDEM 5 MG TAB PO PRN (13:26)
[2022-02-24] MEDS ORDERED: NITROGLYCERIN SL TABS 0.4 MG TAB SUBLINGUAL PRN (13:26)
[2022-02-24] MEDS ORDERED: MAG HYDROX/AL HYDROX/SIMETH 30 ML CUP PO PRN (13:26)
[2022-02-24] MEDS ORDERED: RX INFO: IV CONTRAST WAS GIVEN 1 EACH MISC MISCELLANE PRN (13:26)
[2022-02-24] MEDS ORDERED: SODIUM CHLORIDE 0.9% 1,000 ML in EMPTY BAG 1 BAG IV SCH (13:30)
--- NOTE | 2022-02-24 13:30 | P.PCN ---
Date of Procedure: 02/24/22 Operative Findings: PERCUTANEOUS CORONARY INTERVENTION Performing physician Joseph Whatley M.D. Procedure Performed: 1. Successful stenting of the mid RCA using 4.0 x 23 mm Xience drug-eluting stent with an excellent angiographic results. 2. FFR of the right coronary artery 3. RCA angiogram Indication 61-year-old gentleman who presented to the hospital recently with acute coronary syndrome. He underwent a heart catheterization and stenting of the LAD and he was found to have severe disease involving the RCA Approach: Right radial artery Complications: None Level of Sedation: Moderate with a sedation length of 31 minute Procedure Discussion: After obtaining an informed consent the patient was brought to the cardiac lab animal technologist. The right radial artery was cannulated using micropuncture technique, the micropuncture wire passed easily then I placed a 6-Yoruba sheath. They gave the patient 2 mg of verapamil intra-arterial and 8000 use of heparin IV. Subsequently after zeroing the Doppler wire and equalizing between the Doppler wire and the guiding catheter with did an FFR which came in to be ischemic and 0.79. Subsequently I did balloon angioplasty the mid right coronary artery using 3.0 mm balloon before I deployed 4.0 x 23 mm stent where the stent was positioned under fluoroscopy guidance and deployed under 12 alecia for 15 seconds. A postoperative the stent using 4.5 mm balloon. The balloon was noncompliant balloon. Final angiogram showed excellent angiographic results and the procedure was completed without any complications Postprocedure Management: 1. Dual antiplatelet therapy using aspirin and Effient for 12 month 2. Aggressive cholesterol control 3. Follow-up with the patient
[2022-02-24] MEDS: lisinopriL 5 MG TAB PO SCH (19:52)
[2022-02-24] MEDS: METOPROLOL TARTRATE 25 MG TAB PO SCH (19:52)
[2022-02-25] MEDS: SODIUM CHLORIDE 0.9% 1,000 ML in EMPTY BAG 1 BAG IV SCH (04:00)
[2022-02-25 06:24] LABS: African American GFR (CKD) >90 (>60 ml/min/1.73 sqM); Non-African American GFR(CKD) >90 (>60 ml/min/1.73 sqM)
[2022-02-25 07:03] VITALS: BP 131/73; PULSE 55; RESP 17; TEMP 98
[2022-02-25] MEDS: METOPROLOL TARTRATE 25 MG TAB PO SCH (08:04)
[2022-02-25] MEDS: lisinopriL 5 MG TAB PO SCH (08:04)
[2022-02-25] MEDS ORDERED: ASPIRIN 81 MG PO SCH (09:00)
[2022-02-25] MEDS ORDERED: FUROSEMIDE 40 MG TAB PO SCH (09:00)
[2022-02-25] MEDS ORDERED: PRASUGREL 10 MG TAB PO SCH (09:00)
[2022-02-25] MEDS ORDERED: SPIRONOLACTONE 25 MG TAB PO SCH (09:00)
[2022-02-25] MEDS ORDERED: ATORVASTATIN 40 MG TAB PO SCH (09:00)
--- NOTE | 2022-02-25 09:11 | P.DS ---
Providers Attending physician: Joseph Whatley Consults: 02/24/22 13:26 Consult Physician Routine Consulting Provider: [facility] Consult Reason/Comments: Post Interventional patient Do you want consulting provider notified?: Already Contacted Primary care physician: Elly Toney [facility] Course: This is a 61-year-old gentleman who was admitted to the hospital yesterday and underwent an FFR of the right coronary artery and subsequently underwent stenting of the RCA. He was seen this morning. He is asymptomatic. He is hemodynamically stable The patient is going to be discharged home on dual antiplatelet therapy and will follow-up with the patient in a week in the office Plan - Discharge Summary Discharge Rx Participant: No New Discharge Prescriptions: Continue Spironolactone [Aldactone] 25 mg PO DAILY #30 tab Aspirin 81 mg PO DAILY #30 tab lisinopriL [Zestril] 5 mg PO BID #60 tab Prasugrel [Effient] 10 mg PO DAILY 30 Days #30 tab Furosemide [Lasix] 40 mg PO DAILY #30 tab Atorvastatin [Lipitor] 40 mg PO DAILY #30 tab Metoprolol Tartrate [Lopressor] 25 mg PO BID #60 tab Discharge Medication List Aspirin 81 mg PO DAILY #30 tab 01/13/22 [Rx] Atorvastatin [Lipitor] 40 mg PO DAILY #30 tab 01/13/22 [Rx] Furosemide [Lasix] 40 mg PO DAILY #30 tab 01/13/22 [Rx] Metoprolol Tartrate [Lopressor] 25 mg PO BID #60 tab 01/13/22 [Rx] Prasugrel [Effient] 10 mg PO DAILY 30 Days #30 tab 01/13/22 [Rx] Spironolactone [Aldactone] 25 mg PO DAILY #30 tab 01/13/22 [Rx] lisinopriL [Zestril] 5 mg PO BID #60 tab 01/13/22 [Rx] Follow up Appointment(s)/Referral(s): Joseph Whatley MD [STAFF PHYSICIAN] - 03/03/22 10:15 am (APPOINTMENT MADE ON March @ 10:15AM ) Patient Instructions/Handouts: *Surgery [facility] - After Heart Catheterization - Process Trainer Instructions, Heart Catheterization (DC) Activity/Diet/Wound Care/Special Instructions: Right Wrist puncture. keep clean dry Heart Healthy diet
== END 2022-02-25 09:13 | disposition home or self-care (01) ==
LOC: CATHCVL 09:12 → 6NMEDSUR 13:26 → CATHCVL 02-25 09:13
PROVIDERS: ATTEND Internal Medicine Interventional Cardiology
DX: I25.10 Atherosclerotic heart disease of native coronary artery without angina pectoris (principal); I10 Essential (primary) hypertension; E78.5 Hyperlipidemia, unspecified; I42.9 Cardiomyopathy, unspecified; Z20.822 Contact with and (suspected) exposure to COVID-19; Z79.82 Long term (current) use of aspirin; Z72.0 Tobacco use; Z79.899 Other long term (current) drug therapy; Z88.0 Allergy status to penicillin
CPT/HCPCS: 93571; 80048; 82565; 85025; 87635; C9600; C1887; C1769 ×3; C1894; C1725 ×2; C1874; J2250; J2001; J1644; J0153; Q9967